=== PATIENT | male | born 1950 | race Caucasian/White ===

== ENCOUNTER 2023-09-11 12:01 | Inpatient (IN) ==
--- NOTE | 2023-09-11 12:29 | Emergency Department Note ---
Impression & Plan Recurrent falls, Closed supracondylar fracture of right elbow, History of hemorrhagic cerebrovascular accident (CVA) with residual deficit, Type 2 diabetes mellitus ED Provider Note NAME: BABAK LOVELACE Jr AGE: 73 SEX: M ARRIVES VIA: Walk-In INFORMANT: Patient ED PROVIDER(S): Shaggy Johnston MD CHIEF COMPLAINT: Fall PLAN: Disposition: Admit MEDICAL DECISION MAKING: The patient is a pleasant 73-year-old gentleman with a past medical history of hypertension, hyperlipidemia, history of hemorrhagic stroke remotely with residual right upper and right lower extremity weakness and associated ambulatory dysfunction who presents to emergency department via walk-in accompanied by his son for evaluation of repeat falls that occurred today initially this morning and then again prior to arrival both occurring when he was on the commode and lost his balance falling forward and hitting his head and onto his right side. Following his first fall he was able to ambulate at his baseline but following his second fall complained more of pain in his right upper extremity and right lower extremity. The patient also has a chronic brace for foot drop in the right lower extremity and family felt it was difficult to put on due to the orientation of the patient's leg. The patient denies loss of consciousness. The patient is not on anticoagulation. The patient recently relocated to this area to live near his children and they are in the process of finalizing arrangements at an assisted living facility but have yet to finalize placement of furniture so he can begin living there with additional assistance. At this time he has sparse assistance from an aide throughout the week and otherwise family has been helping him during the holidays. They suspect that the patient likely fell due to the recent relocation in an environment that has less of ADA assisting features as he had where he lived previously. On my evaluation the patient is uncomfortable but no distress, afebrile stable vital signs. He has deformity of the right shoulder with limited range of motion of the shoulder which his son feels is new but cannot definitively say if the deformity is also new. He does feel that he may have injured that shoulder in the past. The patient reports it is difficult for him to localize where he is having pain due to his limited sensation at baseline from his prior stroke. He merely indicates that his it is the entire region involving his shoulder and right arm. On initial evaluation the patient did not have significant swelling of the right elbow nor point tenderness. However upon reevaluation his right elbow had increased swelling and so was sent back for additional x-rays. EKG without overt acute ischemia. CXR negative for acute cardiopulmonary process per my personal preliminary review/interpretation. WBC 3.7K, nonspecific. H/H and platelets within normal limits. Chemistry without metabolic acidosis. BUNs/creatinine is 30, consistent with patient's clinically dry appearance with glucose initially 370s however improving to the 200s following IV fluid hydration. CPK within normal limits. TSH within normal limits. CT of the head and C-spine were negative for acute abnormalities. Plain films of the right shoulder, chest, pelvis and right hip in addition to right femur and bilateral tib-fib-fib and feet were performed. Findings include suspected chronic right clavicular injury and old humeral shaft fracture. Additional note is made of question of possible fracture at the base of the right fifth metatarsal however clinical correlation is difficult given the patient's poor sensation at baseline as there is no point tenderness. Thus, this was also further evaluated with oblique view for further characterization. Of note, patient and his son at bedside admit that it is possible that he has fallen in the past and may have suffered injuries for which she did not follow- up for given he has poor sensation in his right side. Foot XR subsequently negative for fracture. X-ray of right elbow demonstrates mildly displaced intercondylar/supracondylar fracture of the distal humerus. There is associated elbow joint effusion and overlying soft tissue edema. Case was discussed with Dr. Yu, orthopedic surgery on-call. Appreciate consultation recommendations. Agrees with treatment with splinting at this time and posterior long-arm. Likely will manage conservatively but recommends CT imaging to further characterize fracture which appears to be along fracture line of prior old fracture. Ultimately, the patient did require admission due to decreased ambulatory ability in setting of baseline amatory dysfunction now at further risk for falls with his right elbow fracture. Thus, patient and the son at bedside agree with plan for admission. [facility]. Triage Nursing notes reviewed and agree them. Prior/external medical records reviewed Vital Signs: reviewed Differential diagnosis: Fracture, dislocation, contusion, intra-abdominal, pneumothorax, intrathoracic, intracranial, neurologic, compartment syndrome, rhabdomyolysis, as well as other pathologies. ER treatment provided: See below. Diagnostics interpreted by me: ECG: Normal sinus rhythm, 83 bpm, no ectopy, no overt ST elevation or depression, QTc 427, QRS 94 Cardiac Monitoring: An order for continuous cardiac monitoring was placed and demonstrated Normal sinus rhythm, 83 bpm, no ectopy. Laboratory studies: See below Imaging studies: See below Consultation(s): Dr. Yu, orthopedic surgery on-call Dr. Glez, [facility] hospitalist. HPI: The patient is a pleasant 73-year-old gentleman with a past medical history of hypertension, hyperlipidemia, history of hemorrhagic stroke remotely with residual right upper and right lower extremity weakness and associated ambulatory dysfunction who presents to emergency department via walk-in accompanied by his son for evaluation of repeat falls that occurred today initially this morning and then again prior to arrival both occurring when he was on the commode and lost his balance falling forward and hitting his head and onto his right side. Following his first fall he was able to ambulate at his baseline but following his second fall complained more of pain in his right upper extremity and right lower extremity. The patient also has a chronic brace for foot drop in the right lower extremity and family felt it was difficult to put on due to the orientation of the patient's leg. The patient denies loss of consciousness. The patient is not on anticoagulation. The patient recently relocated to this area to live near his children and they are in the process of finalizing arrangements at an assisted living facility but have yet to finalize placement of furniture so he can begin living there with additional assistance. At this time he has sparse assistance from an aide throughout the week and otherwise family has been helping him during the holidays. They suspect that the patient likely fell due to the recent relocation in an environment that has less of ADA assisting features as he had where he lived previously. ROS: See above HPI for pertinent positives & negatives. A total of 10 systems reviewed and were otherwise negative. VITALS:See Below PHYSICAL EXAMINATION: GENERAL: Awake, alert, uncomfortable-appearing, in no distress HENT: Normocephalic, atraumatic. Oropharynx with dry mucous membranes and otherwise unremarkable. EYES: Normal conjunctiva. Sclera non-icteric. NECK: Supple. No nuchal rigidity. FROM. No JVD. RESPIRATORY: Clear to auscultation. CARDIAC: Regular rate, normal rhythm. Extremities warm and well perfused. Pulses equal. ABDOMEN: Soft, non-distended. No tenderness to palpation. No rebound or guarding. No masses. RECTAL: Deferred. MUSCULOSKELETAL: Chest examination reveals no tenderness. The back is symmetrical on inspection without obvious abnormality. deformity of the right shoulder with limited range of motion of the shoulder which his son feels is new but cannot definitively say if the deformity is also new. He does feel that he may have injured that shoulder in the past. The patient reports it is difficult for him to localize where he is having pain due to his limited sensation at baseline from his prior stroke. He merely indicates that his it is the entire region involving his shoulder and right arm. On initial evaluation the patient did not have significant swelling of the right elbow nor point tenderness. However upon reevaluation his right elbow had increased swelling and so was sent back for additional x-rays. LOWER EXTREMITIES: Calves are equal size bilaterally and non-tender. No edema. No discoloration. NEURO: Normal sensorium. No sensory or motor deficits noted. SKIN: No rash or jaundice noted. ED COURSE: Procedures: Splint Care: After the ortho glass splint was placed by the car supplier, I examined the splint and confirmed proper application/placement/position. Neurovascular status was intact both proximal and distal to the splinted area. Shaggy Johnston MD Past Med/Surg History Medical History Hyperlipidemia Hypertension History of stroke with residual deficit Hemorrhagic cerebrovascular accident (CVA) Social History Smoking Status: Former smoker marital status: / Feels Safe at Home: Yes Allergies Allergies Allergy/AdvReac Type Severity Reaction Status Date / Time terbinafine [From Lamisil] Allergy Intermediate Rash Unverified 09/11/23 17:29 Home Meds Home Medications Medication Instructions Recorded Confirmed amitriptyline 50 mg tablet 50 mg PO DAILY 09/11/23 09/11/23 atenolol 25 mg tablet 25 mg PO DAILY 09/11/23 09/11/23 atorvastatin 40 mg tablet 40 mg PO DAILY 09/11/23 09/11/23 benazepril 10 mg tablet 10 mg PO DAILY 09/11/23 09/11/23 diltiazem HCl 120 mg 120 mg PO DAILY 09/11/23 09/11/23 capsule,extended release 24 hr docusate sodium 100 mg tablet 100 mg PO BID 09/11/23 09/11/23 gabapentin 800 mg tablet 800 mg PO TID 09/11/23 09/11/23 insulin glargine 100 unit/mL (3 21 unit subcut HS 09/11/23 09/11/23 mL) subcutaneous pen (Lantus Solostar U-100 Insulin) insulin lispro 100 unit/mL 0 sliding scale dose subcut TID 09/11/23 09/11/23 subcutaneous pen (Humalog KwikPen (U-100) Insulin) mirabegron 50 mg tablet,extended 50 mg PO DAILY 09/11/23 09/11/23 release 24 hr (Myrbetriq) oxycodone 5 mg tablet 5 mg PO QAM PRN Pain 09/11/23 09/11/23 polyethylene glycol 3350 17 gram 17 g PO DAILY 09/11/23 09/11/23 oral powder packet (Miralax) Results & Data (ED) Vital Signs Vital Signs - 24 hr 09/11/23 12:11 09/11/23 13:00 09/11/23 13:01 Temperature 36.8 C Temperature Source Temporal Artery Scan Pulse Rate 84 Pulse Rate [Apical] 82 Respiratory Rate 20 16 Respiratory Effort / Characteristics Non-Labored Spontaneous Respiratory Depth Normal Respiratory Pattern Regular Blood Pressure 135/76 Blood Pressure [Left Arm] 144/75 H Blood Pressure Mean 95 Blood Pressure Mean [Left Arm] 98 Pulse Oximetry 97 92 94 Oxygen Delivery Method Room Air Sepsis Recent Fever Within 48 Hours No Sepsis New/Unexplained Change in Mental Status No Sepsis Action Taken by Nursing No Action Required 09/11/23 15:00 09/11/23 18:06 09/11/23 19:25 Temperature Temperature Source Pulse Rate Pulse Rate [Apical] 76 78 83 Respiratory Rate 19 19 Respiratory Effort / Characteristics Non-Labored Spontaneous Non-Labored Spontaneous Respiratory Depth Normal Normal Respiratory Pattern Regular Blood Pressure Blood Pressure [Left Arm] 153/85 H 156/79 H 165/86 H Blood Pressure Mean Blood Pressure Mean [Left Arm] 107 104 112 Pulse Oximetry 93 96 96 Oxygen Delivery Method Room Air Room Air Room Air Sepsis Recent Fever Within 48 Hours Sepsis New/Unexplained Change in Mental Status Sepsis Action Taken by Nursing 09/11/23 19:28 09/11/23 19:28 09/11/23 19:30 Temperature Temperature Source Pulse Rate 81 81 80 Pulse Rate [Apical] Respiratory Rate 12 12 Respiratory Effort / Characteristics Respiratory Depth Respiratory Pattern Blood Pressure 169/84 H Blood Pressure [Left Arm] Blood Pressure Mean 112 Blood Pressure Mean [Left Arm] Pulse Oximetry 95 95 Oxygen Delivery Method Room Air Room Air Sepsis Recent Fever Within 48 Hours Sepsis New/Unexplained Change in Mental Status Sepsis Action Taken by Nursing 09/11/23 20:00 09/11/23 20:30 09/11/23 21:00 Temperature Temperature Source Pulse Rate 79 85 90 Pulse Rate [Apical] Respiratory Rate 16 14 18 Respiratory Effort / Characteristics Respiratory Depth Respiratory Pattern Blood Pressure 160/85 H 156/91 H 171/92 H Blood Pressure [Left Arm] Blood Pressure Mean 110 112 118 Blood Pressure Mean [Left Arm] Pulse Oximetry Oxygen Delivery Method Sepsis Recent Fever Within 48 Hours Sepsis New/Unexplained Change in Mental Status Sepsis Action Taken by Nursing 09/11/23 22:21 09/11/23 22:30 Temperature Temperature Source Pulse Rate 94 H 92 H Pulse Rate [Apical] Respiratory Rate 16 Respiratory Effort / Characteristics Respiratory Depth Respiratory Pattern Blood Pressure 167/82 H Blood Pressure [Left Arm] Blood Pressure Mean 110 Blood Pressure Mean [Left Arm] Pulse Oximetry Oxygen Delivery Method Sepsis Recent Fever Within 48 Hours Sepsis New/Unexplained Change in Mental Status Sepsis Action Taken by Nursing Laboratory Data Attestation: I reviewed the patient's lab results. 09/11/23 12:42 09/11/23 12:42 Lab Results 09/11/23 Range/Units 12:42 WBC 13.75 H (4.8-10.8) K/ul RBC 4.52 L (4.70-6.10) M/uL Hgb 14.5 (14.0-18.0) g/dl Hct 43.1 (42.0-52.0) % MCV 95.4 (80.0-100.0) fL MCH 32.1 (25.0-34.0) pg MCHC 33.6 (32.0-36.0) g/dL RDW Std Deviation 43.5 (36.4-46.3) fL RDW Coeff of Nazia 12.4 (11.5-14.5) % Plt Count 306 (130-400) K/uL MPV 8.7 L (9.4-12.4) fL Immature Gran % (Auto) 0.7 % Neut % (Auto) 79.4 % Lymph % (Auto) 7.9 % [place] % (Auto) 11.1 % Eos % (Auto) 0.7 % Baso % (Auto) 0.2 % Neut # (Auto) 10.92 H (1.40-6.50) K/uL Lymph # (Auto) 1.09 L (1.20-3.40) K/uL [place] # (Auto) 1.52 H (0.11-0.59) K/uL Eos # (Auto) 0.09 (0.00-0.50) K/uL Baso # (Auto) 0.03 (0.00-0.20) K/uL Immature Gran # (Auto) 0.10 (0.01-0.20) K/uL PT 11.1 (9.0-12.0) Seconds INR 1.0 (0.9-1.1) Sodium 130 L (136-145) mmol/L Potassium 4.4 (3.5-5.1) mmol/L Chloride 93 L (98-107) mmol/L Carbon Dioxide 29 (21-32) mmol/L Anion Gap 8 (3-11) BUN 26 H (6-23) mg/dl Creatinine 0.85 (0.6-1.4) mg/dl Est Cr Clr Drug Dosing 78.7 ml/min Est GFR ( Amer) 99.5 ml/min Est GFR (Non-Af Amer) 85.8 ml/min BUN/Creatinine Ratio 30.6 H (10-20) Glucose 379 H* (70-99(Fasting)) mg/dl Calcium 9.0 (8.6-10.3) mg/dl Phosphorus 3.2 (2.5-4.9) mg/dl Magnesium 2.1 (1.7-2.4) mg/dl Total Bilirubin 1.1 H (0.2-1.0) mg/dl AST 19 (13-39) U/L ALT 22 (7-52) U/L Alkaline Phosphatase 75 (34-104) U/L Total Creatine Kinase 206 (30-223) U/L Total Protein 7.0 (6.0-8.3) gm/dl Albumin 4.1 (3.4-5.0) gm/dl Globulin 2.9 (2.5-4.0) gm/dl Albumin/Globulin Ratio 1.4 (0.9-2) TSH 2.945 (0.300-4.500) uIu/ml Administered Medications Discontinued Medications Sodium Chloride (Nss) 500 mls @ 999 mls/hr IV .Q31M ISABEL Stop: 09/11/23 13:15 Last Infusion: 09/11/23 13:32 Dose: Infused Documented By: Admin: 09/11/23 12:57 Dose: 999 mls/hr Documented By: HERMANN Acetaminophen (Ofirmev) 1,000 mg in 100 mls @ 400 mls/hr IV NOW STA Stop: 09/11/23 12:57 Last Infusion: 09/11/23 13:11 Dose: Infused Documented By: Admin: 09/11/23 12:56 Dose: 400 mls/hr Documented By: HERMANN Imaging Data Radiologist's Impression: Cervical Spine CT 09/11/23 12:43 CT SCAN OF THE CERVICAL SPINE CLINICAL HISTORY: Trauma. Fall. COMPARISON STUDY: No priors. TECHNIQUE: CT scan of the cervical spine is performed from the skull base to the upper thoracic spine. Images are reviewed in the axial, sagittal, and coronal planes. IV contrast was not administered for this examination. A dose lowering technique was utilized adhering to the principles of ALARA. CT DOSE: 1184.2 mGy.cm FINDINGS: Skeletal structures: The skeletal structures are osteopenic. There is no evidence of fracture or subluxation involving the cervical spine. Vertebral body height and alignment are maintained. Small anterior osteophytes are seen throughout. The odontoid process and lateral masses are intact. The atlantoaxial articulation is preserved noting productive degenerative change. The spinous processes appear intact. There is mild multilevel facet arthropathy. Intervertebral discs: There is severe disc space narrowing at C7-T1. Mild narrowing is seen at the remaining cervical levels. Central canal: Grossly patent. Soft tissues: The prevertebral and paraspinous soft tissues are within normal limits. There is atherosclerotic calcification of the carotid bulbs. Calvarium: The visualized calvarium at the skull base appears intact. Brain parenchyma: A 1.9 cm calcified extra-axial nodule in the posterior fossa is typical for a meningioma. Partially visualized brain parenchyma at the skull base is otherwise grossly unremarkable. Sinuses and mastoids: The visualized paranasal sinuses are clear. There is trace right mastoid effusion. The left mastoid air cells are well pneumatized. Lung apices: Emphysematous change is seen at the apices. Apical lung parenchyma is otherwise clear as visualized. IMPRESSION: 1. There is no evidence of cervical spine fracture or subluxation. 2. Osteopenia and spondylotic change as above. ACT 112: Negative or not required by law. Electronically signed by: Sina Kemp M.D. 09/11/2023 2:43 PM Chest X-Ray 09/11/23 12:43 SINGLE VIEW CHEST CLINICAL HISTORY: Fall. FINDINGS: 2 AP, portable, upright chest radiographs are obtained. No prior studies are available for comparison at the time of dictation. The examination is degraded by portable technique, apical lordotic positioning, and patient rotation. The heart is mildly enlarged noting atherosclerotic calcification of the thoracic aorta. The pulmonary vasculature is noncongested. Nonspecific interstitial thickening is likely chronic. There is bibasilar scarring/atelectasis. No airspace consolidation or large pleural effusion is identified. No pneumothorax is seen. The skeletal structures are osteopenic. There is chronic appearing posttraumatic deformity of the distal right clavicle. IMPRESSION: Cardiomegaly with no acute cardiopulmonary abnormality identified. ACT 112: Negative or not required by law. Electronically signed by: Sina Kemp M.D. 09/11/2023 3:13 PM Femur X-Ray 09/11/23 12:43 SINGLE VIEW PELVIS; 2 VIEWS RIGHT HIP STUDY: 2 VIEWS RIGHT FEMUR CLINICAL HISTORY: Fall. FINDINGS: An AP view of the pelvis, AP and crosstable lateral views of the right hip, with AP and crosstable lateral views of the right femur are obtained. No prior studies are available for comparison at the time of dictation. The skeletal structures are osteopenic. There is no radiographic evidence of acute fracture involving the hips or bony pelvis. There is no radiographic evidence of right femoral fracture. Moderate osteoarthritic change is noted in both hips. There is degenerative sclerosis of the sacroiliac joints. Lumbosacral spondylosis is partially visualized. The right knee joint is grossly maintained. An electronic device projects over the left lower quadrant of the abdomen. There is atherosclerotic calcification of the right femoral artery. IMPRESSION: 1. No acute bony abnormality is seen involving the hips or pelvis. 2. There is no radiographic evidence of right femoral fracture. Electronically signed by: Sina Kemp M.D. 09/11/2023 3:19 PM Foot X-Ray 09/11/23 12:43 LEFT FOOT 2 VIEWS CLINICAL HISTORY: Fall. Left foot injury. FINDINGS: AP and lateral views of the left foot are obtained. No prior studies are available for comparison at the time of dictation. The skeletal structures are heterogeneously osteopenic. There is no radiographic evidence of acute fracture on this 2 view examination. Osteoarthritic change is seen throughout the foot, greatest at the first metatarsophalangeal joint and at the tarsometatarsal articulations. There is a large plantar heel spur. Degenerative spurring is seen along the dorsal aspect of the tarsal bones. An os navicularis is incidentally noted. The overlying soft tissues are normal as imaged. There is advanced atherosclerotic calcification of the regional arteries. IMPRESSION: 1. No acute bony abnormality is identified. 2. Osteopenia, degenerative change, and large plantar heel spur as above. Electronically signed by: Sina Kemp M.D. 09/11/2023 3:35 PM Foot X-Ray 09/11/23 12:43 RIGHT FOOT 2 VIEWS CLINICAL HISTORY: Fall. Right foot injury. FINDINGS: AP and lateral views of the right foot are obtained. No prior studies are available for comparison at the time of dictation. The skeletal structures are heterogeneously osteopenic. Question cortical irregularity at the base of the fifth metatarsal on the lateral projection. No additional findings are suspicious for acute fracture. There is chronic posttraumatic deformity of the fourth and fifth metatarsal shafts. Osteoarthritic change is seen throughout the foot, greatest at the first metatarsophalangeal joint and at the tarsometatarsal articulations. There is a large plantar heel spur. The overlying soft tissues are normal as imaged. There is advanced atherosclerotic calcification of the regional arteries. IMPRESSION: 1. Question cortical irregularity at the base of the fifth metatarsal seen on the lateral projection only. This is indeterminant and may be artifactual. Correlate for point tenderness. If there is clinical concern for fracture at this site then a repeat examination with oblique views should be obtained. 2. Additional findings are suspicious for acute fracture. 3. Osteopenia with degenerative change, chronic posttraumatic change, and a large plantar heel spur as above. Electronically signed by: Sina Kemp M.D. 09/11/2023 3:[address] 09/11/23 12:43 CT SCAN OF THE BRAIN WITHOUT IV CONTRAST CLINICAL HISTORY: Fall. COMPARISON STUDY: No priors. TECHNIQUE: Unenhanced axial CT scan of the brain is performed from the vertex to the skull base. A dose lowering technique was utilized adhering to the principles of ALARA. FINDINGS: Brain parenchyma: There is age-related involutional change noting moderate subcortical and periventricular microangiopathic disease. There is no hemorrhage, mass effect, or evidence of acute territorial ischemia by CT criteria. A 1.9 cm calcified extra-axial lesion in the right posterior fossa is typical for a meningioma. There is no associated mass effect. Deleon-white matter differentiation is preserved. No extra-axial fluid collection is seen. Ventricles, sulci, cisterns: Prominent secondary to involutional change. Intracranial vasculature: There is atherosclerotic calcification of the cavernous carotid and vertebral arteries. Calvarium: The skeletal structures are osteopenic. No depressed calvarial fracture is identified. Sinuses and mastoids: The paranasal sinuses are clear. The mastoid air cells are well pneumatized. Orbits: The bony orbits are grossly intact. There are bilateral ocular lens implants. IMPRESSION: 1. There is no hemorrhage, mass effect, or evidence of acute territorial ischemia by CT criteria. 2. A 1.9 cm calcified extra-axial nodule in the right posterior fossa is typical for a meningioma. There is no associated mass effect. ACT 112: Negative or not required by law. Electronically signed by: Sina Kemp M.D. 09/11/2023 2:31 PM Shoulder X-Ray 09/11/23 12:43 RIGHT SHOULDER 2 VIEWS CLINICAL HISTORY: Fall. Right shoulder pain. FINDINGS: 2 views of the right shoulder are obtained. No prior studies are available for comparison at the time of dictation. The skeletal structures are heterogeneously osteopenic. No acute fracture is clearly identified and there is no dislocation. There is chronic appearing posttraumatic deformity of the distal right clavicle. There is also chronic appearing posttraumatic change involving the right humeral shaft. Soft tissue edema overlies the right shoulder and clavicle. There are likely chronic/healed right-sided rib fractures. Degenerative change is noted at the glenohumeral and acromioclavicular joints. The visualized right lung parenchyma appears clear. IMPRESSION: 1. Soft tissue swelling overlying the right shoulder and clavicle with no clear radiographic evidence of acute fracture. 2. No dislocation is seen. 3. Deformity of the distal right clavicle and the right humeral shaft appears chronic. Correlate clinically. Electronically signed by: Sina Kemp M.D. 09/11/2023 3:25 PM Tibia/Fibula X-Ray 09/11/23 12:43 LEFT TIBIA AND FIBULA 2 VIEWS CLINICAL HISTORY: Fall. Left leg pain. FINDINGS: AP and lateral views of the left tibia and fibula are obtained. No prior studies are available for comparison at the time of dictation. The skeletal structures are osteopenic. There is no radiographic evidence of left tibial or fibular fracture. The knee and ankle joints appear maintained. The overlying soft tissues are within normal limits. There is atherosclerotic calcification of the regional arteries. IMPRESSION: No acute bony abnormality is identified. Electronically signed by: Sina Kemp M.D. 09/11/2023 3:26 PM Tibia/Fibula X-Ray 09/11/23 12:43 RIGHT TIBIA AND FIBULA 2 VIEWS CLINICAL HISTORY: Fall. Right leg pain. FINDINGS: AP and lateral views of the right tibia and fibula are obtained. No prior studies are available for comparison at the time of dictation. The skeletal structures are osteopenic. There is no radiographic evidence of right tibial or fibular fracture. The knee and ankle joints appear maintained. The overlying soft tissues are within normal limits. There is atherosclerotic calcification of the regional arteries. IMPRESSION: No acute bony abnormality is identified. Electronically signed by: Sina Kemp M.D. 09/11/2023 3:27 PM Hip/Pelvis X-Ray 09/11/23 12:47 SINGLE VIEW PELVIS; 2 VIEWS RIGHT HIP STUDY: 2 VIEWS RIGHT FEMUR CLINICAL HISTORY: Fall. FINDINGS: An AP view of the pelvis, AP and crosstable lateral views of the right hip, with AP and crosstable lateral views of the right femur are obtained. No prior studies are available for comparison at the time of dictation. The skeletal structures are osteopenic. There is no radiographic evidence of acute fracture involving the hips or bony pelvis. There is no radiographic evidence of right femoral fracture. Moderate osteoarthritic change is noted in both hips. There is degenerative sclerosis of the sacroiliac joints. Lumbosacral spondylosis is partially visualized. The right knee joint is grossly maintained. An electronic device projects over the left lower quadrant of the abdomen. There is atherosclerotic calcification of the right femoral artery. IMPRESSION: 1. No acute bony abnormality is seen involving the hips or pelvis. 2. There is no radiographic evidence of right femoral fracture. Electronically signed by: Sina Kemp M.D. 09/11/2023 3:19 PM Elbow X-Ray 09/11/23 18:21 RIGHT ELBOW 2 VIEWS; RIGHT FOREARM 2 VIEWS CLINICAL HISTORY: Fall. Right arm injury. FINDINGS: Crosstable AP and lateral views of the right elbow with PA and crosstable lateral views of the right forearm are obtained. No prior studies are available for comparison at the time of dictation. The skeletal structures are osteopenic. There is a mildly displaced intracondylar/supracondylar fracture of the distal humerus with associated elbow joint effusion and significant overlying soft tissue edema. No acute fracture is seen involving the radius or ulna. The elbow joint is grossly maintained. Arthritic change is noted in the wrist. IMPRESSION: 1. Mildly displaced intracondylar/supracondylar fracture of the distal humerus. 2. There is associated elbow joint effusion and significant overlying soft tissue edema. 3. No radial or ulnar fracture is clearly seen. Electronically signed by: Sina Kemp M.D. 09/11/2023 7:39 PM Foot X-Ray 09/11/23 18:21 SINGLE VIEW RIGHT FOOT CLINICAL HISTORY: Fall. Follow up abnormal radiographs. FINDINGS: Oblique views of the right foot are correlated with AP and lateral views of the right foot performed earlier the same day 09/11/2023. The skeletal structures are heterogeneously osteopenic. No fracture is identified. Specifically, there is no evidence of fracture through base of fifth metatarsal is questioned on the earlier examination. There is chronic posttraumatic deformity of the fourth and fifth metatarsal shafts. Osteoarthritic change is seen throughout the foot, greatest at the first metatarsophalangeal joint and at the tarsometatarsal articulations. The overlying soft tissues are normal as imaged. There is advanced atherosclerotic calcification of the regional arteries. IMPRESSION: 1. No acute fracture is identified. Specifically, there is no fracture seen at the base of the fifth metatarsal is questioned on today's earlier examination. 2. Osteopenia with chronic and degenerative change as above. Electronically signed by: Sina Kemp M.D. 09/11/2023 8:08 PM Forearm X-Ray 09/11/23 18:25 RIGHT ELBOW 2 VIEWS; RIGHT FOREARM 2 VIEWS CLINICAL HISTORY: Fall. Right arm injury. FINDINGS: Crosstable AP and lateral views of the right elbow with PA and crosstable lateral views of the right forearm are obtained. No prior studies are available for comparison at the time of dictation. The skeletal structures are osteopenic. There is a mildly displaced intracondylar/supracondylar fracture of the distal humerus with associated elbow joint effusion and significant overlying soft tissue edema. No acute fracture is seen involving the radius or ulna. The elbow joint is grossly maintained. Arthritic change is noted in the wrist. IMPRESSION: 1. Mildly displaced intracondylar/supracondylar fracture of the distal humerus. 2. There is associated elbow joint effusion and significant overlying soft tissue edema. 3. No radial or ulnar fracture is clearly seen. Electronically signed by: Sina Kemp M.D. 09/11/2023 7:39 PM Discharge Plan Visit Data Chief Complaint: Fall Stated Complaint: FALL, HEAD INJURY ED Provider: Shaggy Johnston Discharge Problem: Recurrent falls, Closed supracondylar fracture of right elbow, History of hemorrhagic cerebrovascular accident (CVA) with residual deficit, Type 2 diabetes mellitus Discharge Instructions Interventions: ED Discharge Assessment Last Done: 09/11/23 23:14 Forms Stand Alone Forms: My [facility] Prescriptions Prescriptions: No Action atorvastatin 40 mg tablet 40 mg PO DAILY atenolol 25 mg tablet 25 mg PO DAILY amitriptyline 50 mg tablet 50 mg PO DAILY gabapentin 800 mg tablet 800 mg PO TID diltiazem HCl 120 mg capsule,extended release 24hr 120 mg PO DAILY benazepril 10 mg tablet 10 mg PO DAILY oxycodone 5 mg tablet 5 mg PO QAM PRN (Reason: Pain) insulin lispro [Humalog KwikPen Insulin] 100 unit/mL insulin pen 0 sliding scale dose SUBCUT TID Rx Instructions: Patient does this per sliding scale but is here out of town and doesn't have the scale sheet with him insulin glargine [Lantus Solostar U-100 Insulin] 100 unit/mL (3 mL) insulin pen 21 unit SUBCUT HS Myrbetriq 50 mg tablet extended release 24 hr 50 mg PO DAILY polyethylene glycol 3350 [Miralax] 17 gram Powder In Packet 17 g PO DAILY docusate sodium 100 mg Tablet 100 mg PO BID Referrals Referrals: PCP,NO [Physician] - Discharge Problem: Closed supracondylar fracture of right elbow Qualifiers: Encounter type: initial encounter Qualified Code(s): S42.411A - Displaced simple supracondylar fracture without intercondylar fracture of right humerus, initial encounter for closed fracture Type 2 diabetes mellitus 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
[2023-09-11] MEDS ORDERED: ACETAMINOPHEN 1,000 MG/100 ML VIAL IV STA (12:43)
[2023-09-11] MEDS ORDERED: SODIUM CHLORIDE 0.9% 500 ML IV SCH (12:45)
[2023-09-11 13:20] LABS: Basophils # (auto) 0.03 K/uL (0.00-0.20); Basophils % (auto) 0.2 %; Eosinophils # (auto) 0.09 K/uL (0.00-0.50); Eosinophils % (auto) 0.7 %; Hematocrit (blood only) 43.1 % (42.0-52.0); Hemoglobin 14.5 g/dl (14.0-18.0); Immature Granulocytes % (auto) 0.7 %; Lymphocytes # (auto) 1.09 K/uL (1.20-3.40); Lymphocytes % (auto) 7.9 %; Mean Corpuscular Hemoglobin 32.1 pg (25.0-34.0); Mean Corpuscular Hgb Conc 33.6 g/dL (32.0-36.0); Mean Corpuscular Volume 95.4 fL (80.0-100.0); Mean Platelet Volume 8.7 fL (9.4-12.4); Monocytes # (auto) 1.52 K/uL (0.11-0.59); Monocytes % (auto) 11.1 %; Neutrophils # (auto) 10.92 K/uL (1.40-6.50); Neutrophils % (auto) 79.4 %; Platelet Count 306 K/uL (130-400); RDW Coefficient of Variation 12.4 % (11.5-14.5); RDW Standard Deviation 43.5 fL (36.4-46.3); Red Blood Count 4.52 M/uL (4.70-6.10); White Blood Count 13.75 K/ul (4.8-10.8)
[2023-09-11 13:48] LABS: Prothrombin Time 11.1 Seconds (9.0-12.0)
[2023-09-11 14:16] LABS: Albumin Globulin Ratio 1.4 (0.9-2); Albumin Level 4.1 gm/dl (3.4-5.0); BUN Creatinine Ratio 30.6 (10-20); Bilirubin,Total 1.1 mg/dl (0.2-1.0); Creatinine Clr Calc Pharmacy 78.7 ml/min; Est GFR (African American) 99.5 ml/min; Est GFR (Non-African American) 85.8 ml/min; Globulin 2.9 gm/dl (2.5-4.0); Magnesium 2.1 mg/dl (1.7-2.4); Phosphorus 3.2 mg/dl (2.5-4.9); Potassium 4.4 mmol/L (3.5-5.1); Thyroid Stimulating Hormone 2.945 uIu/ml (0.300-4.500)
--- NOTE | 2023-09-11 14:33 | CT Scan Report ---
CT SCAN OF THE BRAIN WITHOUT IV CONTRAST CLINICAL HISTORY: Fall. COMPARISON STUDY: No priors. TECHNIQUE: Unenhanced axial CT scan of the brain is performed from the vertex to the skull base. A do se lowering technique was utilized adhering to the principles of ALARA. FINDINGS: Brain parenchyma: There is age-related involutional change noting moderate subcortical and periventri cular microangiopathic disease. There is no hemorrhage, mass effect, or evidence of acute territorial ischemia by CT criteria. A 1.9 cm calcified extra-axial lesion in the right posterior fossa is typic al for a meningioma. There is no associated mass effect. Deleon-white matter differentiation is preserv ed. No extra-axial fluid collection is seen. Ventricles, sulci, cisterns: Prominent secondary to involutional change. Intracranial vasculature: There is atherosclerotic calcification of the cavernous carotid and vertebr al arteries. Calvarium: The skeletal structures are osteopenic. No depressed calvarial fracture is identified. Sinuses and mastoids: The paranasal sinuses are clear. The mastoid air cells are well pneumatized. Orbits: The bony orbits are grossly intact. There are bilateral ocular lens implants. IMPRESSION: 1. There is no hemorrhage, mass effect, or evidence of acute territorial ischemia by CT criteria. 2. A 1.9 cm calcified extra-axial nodule in the right posterior fossa is typical for a meningioma. Th ere is no associated mass effect. ACT 112: Negative or not required by law. Electronically signed by: Sina Kemp M.D. 09/11/2023 2:31 PM
--- NOTE | 2023-09-11 14:46 | CT Scan Report ---
CT SCAN OF THE CERVICAL SPINE CLINICAL HISTORY: Trauma. Fall. COMPARISON STUDY: No priors. TECHNIQUE: CT scan of the cervical spine is performed from the skull base to the upper thoracic spine . Images are reviewed in the axial, sagittal, and coronal planes. IV contrast was not administered fo r this examination. A dose lowering technique was utilized adhering to the principles of ALARA. CT DOSE: 1184.2 mGy.cm FINDINGS: Skeletal structures: The skeletal structures are osteopenic. There is no evidence of fracture or subl uxation involving the cervical spine. Vertebral body height and alignment are maintained. Small anter ior osteophytes are seen throughout. The odontoid process and lateral masses are intact. The atlantoa xial articulation is preserved noting productive degenerative change. The spinous processes appear in tact. There is mild multilevel facet arthropathy. Intervertebral discs: There is severe disc space narrowing at C7-T1. Mild narrowing is seen at the re maining cervical levels. Central canal: Grossly patent. Soft tissues: The prevertebral and paraspinous soft tissues are within normal limits. There is athero sclerotic calcification of the carotid bulbs. Calvarium: The visualized calvarium at the skull base appears intact. Brain parenchyma: A 1.9 cm calcified extra-axial nodule in the posterior fossa is typical for a menin gioma. Partially visualized brain parenchyma at the skull base is otherwise grossly unremarkable. Sinuses and mastoids: The visualized paranasal sinuses are clear. There is trace right mastoid effusi on. The left mastoid air cells are well pneumatized. Lung apices: Emphysematous change is seen at the apices. Apical lung parenchyma is otherwise clear as visualized. IMPRESSION: 1. There is no evidence of cervical spine fracture or subluxation. 2. Osteopenia and spondylotic change as above. ACT 112: Negative or not required by law. Electronically signed by: Sina Kemp M.D. 09/11/2023 2:43 PM
--- NOTE | 2023-09-11 15:14 | XRay Report ---
SINGLE VIEW CHEST CLINICAL HISTORY: Fall. FINDINGS: 2 AP, portable, upright chest radiographs are obtained. No prior studies are available for comparison at the time of dictation. The examination is degraded by portable technique, apical lordot ic positioning, and patient rotation. The heart is mildly enlarged noting atherosclerotic calcificat ion of the thoracic aorta. The pulmonary vasculature is noncongested. Nonspecific interstitial thicke blaine is likely chronic. There is bibasilar scarring/atelectasis. No airspace consolidation or large p leural effusion is identified. No pneumothorax is seen. The skeletal structures are osteopenic. There is chronic appearing posttraumatic deformity of the distal right clavicle. IMPRESSION: Cardiomegaly with no acute cardiopulmonary abnormality identified. ACT 112: Negative or not required by law. Electronically signed by: Sina Kemp M.D. 09/11/2023 3:13 PM
--- NOTE | 2023-09-11 15:21 | XRay Report ---
SINGLE VIEW PELVIS; 2 VIEWS RIGHT HIP STUDY: 2 VIEWS RIGHT FEMUR CLINICAL HISTORY: Fall. FINDINGS: An AP view of the pelvis, AP and crosstable lateral views of the right hip, with AP and escrow agent sstable lateral views of the right femur are obtained. No prior studies are available for comparison at the time of dictation. The skeletal structures are osteopenic. There is no radiographic evidence o f acute fracture involving the hips or bony pelvis. There is no radiographic evidence of right femora l fracture. Moderate osteoarthritic change is noted in both hips. There is degenerative sclerosis of the sacroiliac joints. Lumbosacral spondylosis is partially visualized. The right knee joint is gross ly maintained. An electronic device projects over the left lower quadrant of the abdomen. There is at herosclerotic calcification of the right femoral artery. IMPRESSION: 1. No acute bony abnormality is seen involving the hips or pelvis. 2. There is no radiographic evidence of right femoral fracture. Electronically signed by: Sina Kemp M.D. 09/11/2023 3:19 PM
--- NOTE | 2023-09-11 15:21 | XRay Report ---
SINGLE VIEW PELVIS; 2 VIEWS RIGHT HIP STUDY: 2 VIEWS RIGHT FEMUR CLINICAL HISTORY: Fall. FINDINGS: An AP view of the pelvis, AP and crosstable lateral views of the right hip, with AP and microphone operator sstable lateral views of the right femur are obtained. No prior studies are available for comparison at the time of dictation. The skeletal structures are osteopenic. There is no radiographic evidence o f acute fracture involving the hips or bony pelvis. There is no radiographic evidence of right femora l fracture. Moderate osteoarthritic change is noted in both hips. There is degenerative sclerosis of the sacroiliac joints. Lumbosacral spondylosis is partially visualized. The right knee joint is gross ly maintained. An electronic device projects over the left lower quadrant of the abdomen. There is at herosclerotic calcification of the right femoral artery. IMPRESSION: 1. No acute bony abnormality is seen involving the hips or pelvis. 2. There is no radiographic evidence of right femoral fracture. Electronically signed by: Sina Kemp M.D. 09/11/2023 3:19 PM
--- NOTE | 2023-09-11 15:28 | XRay Report ---
LEFT TIBIA AND FIBULA 2 VIEWS CLINICAL HISTORY: Fall. Left leg pain. FINDINGS: AP and lateral views of the left tibia and fibula are obtained. No prior studies are availa ble for comparison at the time of dictation. The skeletal structures are osteopenic. There is no radi ographic evidence of left tibial or fibular fracture. The knee and ankle joints appear maintained. Th e overlying soft tissues are within normal limits. There is atherosclerotic calcification of the oracio onal arteries. IMPRESSION: No acute bony abnormality is identified. Electronically signed by: Sina Kemp M.D. 09/11/2023 3:26 PM
--- NOTE | 2023-09-11 15:28 | XRay Report ---
RIGHT SHOULDER 2 VIEWS CLINICAL HISTORY: Fall. Right shoulder pain. FINDINGS: 2 views of the right shoulder are obtained. No prior studies are available for comparison a t the time of dictation. The skeletal structures are heterogeneously osteopenic. No acute fracture is clearly identified and there is no dislocation. There is chronic appearing posttraumatic deformity o f the distal right clavicle. There is also chronic appearing posttraumatic change involving the right humeral shaft. Soft tissue edema overlies the right shoulder and clavicle. There are likely chronic/ healed right-sided rib fractures. Degenerative change is noted at the glenohumeral and acromioclavicu lar joints. The visualized right lung parenchyma appears clear. IMPRESSION: 1. Soft tissue swelling overlying the right shoulder and clavicle with no clear radiographic evidence of acute fracture. 2. No dislocation is seen. 3. Deformity of the distal right clavicle and the right humeral shaft appears chronic. Correlate clin ically. Electronically signed by: Sina Kemp M.D. 09/11/2023 3:25 PM
--- NOTE | 2023-09-11 15:29 | XRay Report ---
RIGHT TIBIA AND FIBULA 2 VIEWS CLINICAL HISTORY: Fall. Right leg pain. FINDINGS: AP and lateral views of the right tibia and fibula are obtained. No prior studies are avail able for comparison at the time of dictation. The skeletal structures are osteopenic. There is no rad iographic evidence of right tibial or fibular fracture. The knee and ankle joints appear maintained. The overlying soft tissues are within normal limits. There is atherosclerotic calcification of the re gional arteries. IMPRESSION: No acute bony abnormality is identified. Electronically signed by: Sina Kemp M.D. 09/11/2023 3:27 PM
--- NOTE | 2023-09-11 15:35 | XRay Report ---
RIGHT FOOT 2 VIEWS CLINICAL HISTORY: Fall. Right foot injury. FINDINGS: AP and lateral views of the right foot are obtained. No prior studies are available for [facility] at the time of dictation. The skeletal structures are heterogeneously osteopenic. Question co rtical irregularity at the base of the fifth metatarsal on the lateral projection. No additional find ings are suspicious for acute fracture. There is chronic posttraumatic deformity of the fourth and fi fth metatarsal shafts. Osteoarthritic change is seen throughout the foot, greatest at the first metat arsophalangeal joint and at the tarsometatarsal articulations. There is a large plantar heel spur. Th e overlying soft tissues are normal as imaged. There is advanced atherosclerotic calcification of the regional arteries. IMPRESSION: 1. Question cortical irregularity at the base of the fifth metatarsal seen on the lateral projection only. This is indeterminant and may be artifactual. Correlate for point tenderness. If there is clini leonela concern for fracture at this site then a repeat examination with oblique views should be obtained . 2. Additional findings are suspicious for acute fracture. 3. Osteopenia with degenerative change, chronic posttraumatic change, and a large plantar heel spur a s above. Electronically signed by: Sina Kemp M.D. 09/11/2023 3:32 PM
--- NOTE | 2023-09-11 15:36 | XRay Report ---
LEFT FOOT 2 VIEWS CLINICAL HISTORY: Fall. Left foot injury. FINDINGS: AP and lateral views of the left foot are obtained. No prior studies are available for zayra rankin at the time of dictation. The skeletal structures are heterogeneously osteopenic. There is no radiographic evidence of acute fracture on this 2 view examination. Osteoarthritic change is seen thr oughout the foot, greatest at the first metatarsophalangeal joint and at the tarsometatarsal articula tions. There is a large plantar heel spur. Degenerative spurring is seen along the dorsal aspect of t he tarsal bones. An os navicularis is incidentally noted. The overlying soft tissues are normal as im aged. There is advanced atherosclerotic calcification of the regional arteries. IMPRESSION: 1. No acute bony abnormality is identified. 2. Osteopenia, degenerative change, and large plantar heel spur as above. Electronically signed by: Sina Kemp M.D. 09/11/2023 3:35 PM
--- NOTE | 2023-09-11 19:42 | XRay Report ---
RIGHT ELBOW 2 VIEWS; RIGHT FOREARM 2 VIEWS CLINICAL HISTORY: Fall. Right arm injury. FINDINGS: Crosstable AP and lateral views of the right elbow with PA and crosstable lateral views of the right forearm are obtained. No prior studies are available for comparison at the time of dictatio n. The skeletal structures are osteopenic. There is a mildly displaced intracondylar/supracondylar fr acture of the distal humerus with associated elbow joint effusion and significant overlying soft tiss ue edema. No acute fracture is seen involving the radius or ulna. The elbow joint is grossly maintai melody. Arthritic change is noted in the wrist. IMPRESSION: 1. Mildly displaced intracondylar/supracondylar fracture of the distal humerus. 2. There is associated elbow joint effusion and significant overlying soft tissue edema. 3. No radial or ulnar fracture is clearly seen. Electronically signed by: Sina Kemp M.D. 09/11/2023 7:39 PM
--- NOTE | 2023-09-11 20:10 | XRay Report ---
SINGLE VIEW RIGHT FOOT CLINICAL HISTORY: Fall. Follow up abnormal radiographs. FINDINGS: Oblique views of the right foot are correlated with AP and lateral views of the right foot performed earlier the same day 09/11/2023. The skeletal structures are heterogeneously osteopenic. No fracture is identified. Specifically, there is no evidence of fracture through base of fifth metatar jhoan is questioned on the earlier examination. There is chronic posttraumatic deformity of the fourth and fifth metatarsal shafts. Osteoarthritic change is seen throughout the foot, greatest at the first metatarsophalangeal joint and at the tarsometatarsal articulations. The overlying soft tissues are n ormal as imaged. There is advanced atherosclerotic calcification of the regional arteries. IMPRESSION: 1. No acute fracture is identified. Specifically, there is no fracture seen at the base of the fifth metatarsal is questioned on today's earlier examination. 2. Osteopenia with chronic and degenerative change as above. Electronically signed by: Sina Kemp M.D. 09/11/2023 8:08 PM
--- NOTE | 2023-09-11 21:54 | History & Physical Report ---
Date of Service September 11, 2023 Assessment & Plan (1) Type 1 diabetes mellitus: (2) History of hemorrhagic cerebrovascular accident (CVA) with residual deficit: (3) Closed supracondylar fracture of right elbow: (4) Recurrent falls: (5) Hyponatremia: Plan Pt is a 73yoM with PMhx significant for CVA with R sided residual motor and sensory dysfunction, ambulatory dysfunction, HTN, HLD, DMI, chronic pain admitted with right intracondylar/supracondylar fracture of the distal humerus in the setting of frequent falls. R intracondylar/supracondylar fracture of the distal humerus Falls Pt had 2 mechanical falls while visiting sons from [place], about to be moved to [facility] in [place] [facility] falls happened while putting socks on or pulling up pants Forearm XR in ED noting right intracondylar/supracondylar fracture of the distal humerus Head CT and other imaging unremarkable Ortho consult- Dr Yu recommending conservative management with splint and CT of the fractured area CT right elbow pending pain control-continue home gabapentin and oxycodone. Tylenol and IV Dilaudid also added PT/OT once stable Falls Pt with frequent falls Per son sounds mechanical as noted above Does have Hx of stroke about 20 years ago with right sided dysfunction, uses leg brace at baseline. UA ordered and pending to rule out an infectious cause Chest XRAY just noting cardiomegaly Head CT with no acute findings. PT/OT once stable DMI Pt is type 1 diabetic Glucose of 379 on admission, normal anion gap On Lantus 20U qhs and ISS Continue home Lantus 20U qhs with ISS IV fluids Pharmacy Glycemic consult placed Hyponatremia Sodium 130 on admission In setting of hyperglycemia, corrected sodium ~137 On IV fluids Monitor with AM labs Continue other home meds as ordered CODE STATUS: Pt only agreeable to chest compressions per discussion with pt and son in the room DVT prophylaxis: heparin SQ (does not appear to be undergoing surgical procedure at this time Diet: HH Dispo: Med/Surg History of Present Illness Chief Complaint: Fall Primary Care Provider: PARK EDWARD Pt is a 73yoM with PMhx significant for CVA with R sided residual motor and sensory dysfunction, ambulatory dysfunction, HTN, HLD, DMI, chronic pain admitted with right intracondylar/supracondylar fracture of the distal humerus in the setting of frequent falls. Pt seen with a son at bedside. Was having splint placed and in pain. Son states that the pt lives in [place]. Pt was visiting family in the area and had 2 falls at 11pm the day before admission and around 11AM the day of admission. States that the family is in the process of moving their dad closer to stay at [facility]. He has a room but it just needs to be furnished. State that the goal was to have him be moved in by september. Son states that the falls happened mechanically while dad was either trying to pull up his pants or put socks on. He notes that his house does not have the ADA/handicap things that his dad typically has at his residence. Son states that pt does not typically have sensation on the right side given his stroke history so his complaints of pain after the fall prompted him to bring him to the ED for further evaluation. Allergies Allergy/AdvReac Type Severity Reaction Status Date / Time terbinafine [From Lamisil] Allergy Intermediate Rash Unverified 09/11/23 17:29 Home Medications Medication Instructions Recorded Confirmed Type amitriptyline 50 mg tablet 50 mg PO DAILY 09/11/23 09/11/23 History atenolol 25 mg tablet 25 mg PO DAILY 09/11/23 09/11/23 History atorvastatin 40 mg tablet 40 mg PO DAILY 09/11/23 09/11/23 History benazepril 10 mg tablet 10 mg PO DAILY 09/11/23 09/11/23 History diltiazem HCl 120 mg 120 mg PO DAILY 09/11/23 09/11/23 History capsule,extended release 24 hr docusate sodium 100 mg tablet 100 mg PO BID 09/11/23 09/11/23 History gabapentin 800 mg tablet 800 mg PO TID 09/11/23 09/11/23 History insulin glargine 100 unit/mL (3 21 unit subcut HS 09/11/23 09/11/23 History mL) subcutaneous pen (Lantus Solostar U-100 Insulin) insulin lispro 100 unit/mL 0 sliding scale dose subcut TID 09/11/23 09/11/23 History subcutaneous pen (Humalog KwikPen (U-100) Insulin) mirabegron 50 mg tablet,extended 50 mg PO DAILY 09/11/23 09/11/23 History release 24 hr (Myrbetriq) oxycodone 5 mg tablet 5 mg PO QAM PRN Pain 09/11/23 09/11/23 History polyethylene glycol 3350 17 gram 17 g PO DAILY 09/11/23 09/11/23 History oral powder packet (Miralax) Past Med/Surg History Medical History Hyperlipidemia Hypertension History of stroke with residual deficit Hemorrhagic cerebrovascular accident (CVA) Social History Smoking Status: Former smoker marital status: / Feels Safe at Home: Yes Review of Systems Review of Systems: All systems reviewed & are unremarkable except as noted in Subjective Physical Exam Physical Exam: General: Alert, oriented. In distress as splint was being applied Skin: bruise on forehead Psych: Appropriate mood and affect Neuro: unable to move right arm without pain, hemiparesis on R at baseline HEENT: bruise on forehead Chest: Nontender to palpation. CV: RRR Resp: Breath sounds clear bilaterally, no increased effort of breathing. Abdomen: Soft, nontender Extremities: No edema in lower extremities bilaterally. Results & Data Results & Data Vital Signs (Past 12 Hours) Vital Signs Temp Pulse Pulse Resp BP BP Pulse Ox 09/11/23 20:30 85 14 156/91 H 09/11/23 20:00 79 16 160/85 H 09/11/23 19:30 80 12 169/84 H 95 09/11/23 19:28 81 09/11/23 19:28 81 12 95 09/11/23 19:25 83 19 165/86 H 96 09/11/23 18:06 78 156/79 H 96 09/11/23 15:00 76 19 153/85 H 93 09/11/23 13:01 94 09/11/23 13:00 82 16 144/75 H 92 09/11/23 12:11 36.8 C 84 20 135/76 97 O2 Del Method 09/11/23 20:30 09/11/23 20:00 09/11/23 19:30 Room Air 09/11/23 19:28 09/11/23 19:28 Room Air 09/11/23 19:25 Room Air 09/11/23 18:06 Room Air 09/11/23 15:00 Room Air 09/11/23 13:01 09/11/23 13:00 09/11/23 12:11 Room Air (3) Closed supracondylar fracture of right elbow Encounter type: initial encounter Qualified Code(s): S42.411A - Displaced simple supracondylar fracture without intercondylar fracture of right humerus, initial encounter for closed fracture
[2023-09-11] MEDS ORDERED: GLUCOSE 10 TAB/TUBE PO PRN (22:21)
[2023-09-11] MEDS ORDERED: PHARMACY GLYCEMIC MGMT CONSULT PRN (22:21)
[2023-09-11] MEDS ORDERED: GLUCAGON FOR INJ 1 MG VIAL SQ PRN (22:21)
[2023-09-11] MEDS ORDERED: GLUCOSE 40% GEL 15 GM TUBE PO PRN (22:21)
[2023-09-11] MEDS ORDERED: CARBOHYDRATES FOR HYPOGLYCEMIA PO PRN (22:21)
[2023-09-11] MEDS ORDERED: DEXTROSE 50% 50 ML SYRINGE IV PRN (22:21)
[2023-09-11] MEDS ORDERED: LANTUS PER UNIT CHARGE SC SCH (22:45)
[2023-09-11] MEDS ORDERED: oxyCODONE HCL IR 5 MG TAB (IMMEDIATE RELEASE) PO PRN (23:41)
[2023-09-11] MEDS: SODIUM CHLORIDE 0.9% 1,000 ML IV SCH (23:50)
[2023-09-12] MEDS ORDERED: ACETAMINOPHEN 500 MG TAB PO PRN (00:18)
[2023-09-12] MEDS ORDERED: ONDANSETRON INJ 2 MG/ML 2 ML VIAL IV PRN (00:19)
[2023-09-12] MEDS ORDERED: ALUMINUM/MAGNESIUM SUSP 30 ML UDC PO PRN (00:19)
[2023-09-12] MEDS ORDERED: HYDROmorphone INJ 0.5 MG/0.5 ML SYR IV PRN (00:20)
[2023-09-12] MEDS: INSULIN ASPART PER UNIT CHARGE SC SCH ×5 (00:43→20:24)
[2023-09-12] MEDS: HEPARIN SOD 5,000 UNIT/0.5 ML VIAL SQ SCH ×3 (05:49→21:10)
[2023-09-12] MEDS: oxyCODONE HCL IR 5 MG TAB (IMMEDIATE RELEASE) PO PRN ×4 (05:56→20:20)
[2023-09-12 06:18] LABS: Appearance Urine Clear (Clear); Bacteria Urine Automated Negative (Negative); Bilirubin Urine Negative (Negative); Blood Urine Negative (Negative); Cast Urine Automated 0 /lpf (0-5); Color Urine Yellow; Glucose Urine UA 3+ (Negative); Ketones Urine 3+ (Negative); Leukocyte Esterase Urine Negative (Negative); Nitrite Urine Negative (Negative); Protein Urine Trace (Negative); RBC Urine Automated 0-4 /hpf (0-4); Specific Gravity Urine 1.026 (1.000-1.030); Urobilinogen Urine Negative (Negative)
[2023-09-12] MEDS: ATORVASTATIN 40 MG TAB PO SCH (07:46)
[2023-09-12] MEDS: ATENOLOL 25 MG TABLET PO SCH (07:46)
[2023-09-12] MEDS: VIBEGRON 75 MG TAB PO SCH (07:47)
[2023-09-12] MEDS: ENALAPRIL MALEATE 10 MG TAB PO SCH (07:47)
[2023-09-12] MEDS: GABAPENTIN 800 MG TAB PO SCH ×3 (07:47→20:26)
[2023-09-12] MEDS: DOCUSATE SODIUM 100 MG CAP PO SCH ×2 (07:47→20:20)
[2023-09-12] MEDS: dilTIAZem HCL 120 MG CAPCR PO SCH (07:47)
[2023-09-12] MEDS: POLYETHYLENE (MIRALAX) 17 GM PACK PO SCH (07:48)
--- NOTE | 2023-09-12 07:57 | CT Scan Report ---
RIGHT ELBOW CT WITHOUT CONTRAST CLINICAL HISTORY: Evaluate supracondylar fracture. COMPARISON STUDY: Right elbow radiographs performed earlier today. TECHNIQUE: Axial images of the right elbow were obtained without IV contrast. Sagittal and coronal re constructions were viewed. Automated exposure control was utilized for the study. A dose lowering te chnique was utilized adhering to the principles of ALARA. FINDINGS: Note is made of an acute minimally displaced intercondylar fracture of the distal right hum erus. This has a T-shaped component without significant displacement. No additional fractures within the right elbow are present. 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 Soft tissue swelling is no yonny. There is no soft tissue gas. There is no proximal right radial or ulnar fracture. There is evide nce for an old, healed distal right humeral fracture as well. IMPRESSION: 1. Acute minimally displaced intercondylar distal right humeral fracture, as described above. 2. Evidence for old, healed distal right humeral fracture. 3. Moderate right elbow osteoarthritis. ACT 112: Negative or not required by law. Electronically signed by: Jose F Gupta M.D. 09/12/2023 7:54 AM
[2023-09-12 09:06] LABS: Basophils # (auto) 0.03 K/uL (0.00-0.20); Basophils % (auto) 0.3 %; Eosinophils # (auto) 0.11 K/uL (0.00-0.50); Hematocrit (blood only) 42.8 % (42.0-52.0); Hemoglobin 14.5 g/dl (14.0-18.0); Immature Granulocytes # (auto) 0.07 K/uL (0.01-0.20); Immature Granulocytes % (auto) 0.7 %; Lymphocytes # (auto) 2.04 K/uL (1.20-3.40); Mean Corpuscular Hemoglobin 32.2 pg (25.0-34.0); Mean Corpuscular Hgb Conc 33.9 g/dL (32.0-36.0); Mean Corpuscular Volume 95.1 fL (80.0-100.0); Mean Platelet Volume 8.7 fL (9.4-12.4); Monocytes # (auto) 1.22 K/uL (0.11-0.59); Monocytes % (auto) 11.4 %; Neutrophils # (auto) 7.26 K/uL (1.40-6.50); Neutrophils % (auto) 67.6 %; Platelet Count 263 K/uL (130-400); RDW Coefficient of Variation 12.8 % (11.5-14.5); RDW Standard Deviation 44.3 fL (36.4-46.3); White Blood Count 10.73 K/ul (4.8-10.8)
[2023-09-12] MEDS ORDERED: LANTUS PER UNIT CHARGE SC ONE ×2 (09:45→21:00)
--- NOTE | 2023-09-12 10:00 | Orthopedic Consultation ---
Date of Consultation September 12, 2023 Assessment & Plan (1) Closed supracondylar fracture of right elbow: He has an acute, minimally displaced supracondylar humerus fracture in his right elbow in the same area as a previous supracondylar humerus fracture malunion. He has evidence of numerous malunited fractures in his right upper extremity, including distal clavicle, midshaft humerus, supracondylar humerus, and distal ulnar shaft. He has a previous history of stroke and his right arm is nonfunctional at baseline. I would recommend nonoperative treatment of this injury. We will keep him in the splint for now. Follow-up in orthopedics clinic with Dr. Yu in 1 to 2 weeks for repeat x-rays and likely conversion to a long-arm cast. Please call [facility] at [phone] to make an appointment. Orthopedics will sign off at this point. History of Present Illness Reason for Consultation: R supracondylar fracture Requesting Physician: Dr. Dominguez Attending Physician: Danisha Márquez MD History of Present Illness Mr. Puente is a 73-year-old male who reports a history of frequent falls, and new right elbow pain. He reports that he lives in [place], but was up here visiting his sons, who lives in the local area. He reports multiple falls over the past few days, typically when he is leaning over to put on close and loses his balance. He reports a previous history of stroke many years ago, with complete loss of use of his right arm. He states that he has no voluntary muscle control, and no significant sensation in that right arm other than pain. Currently, he reports intermittent episodes of pain in the right elbow, but at other times he is quite comfortable and does not feel anything in his right arm. He reports that his sons are currently looking into permanent long-term placement in the local area here at [facility], but these arrangements have not yet been made. Allergies Allergy/AdvReac Type Severity Reaction Status Date / Time terbinafine [From Lamisil] Allergy Intermediate Rash Unverified 09/11/23 17:29 Home Medications Medication Instructions Recorded Confirmed Type amitriptyline 50 mg tablet 50 mg PO DAILY 09/11/23 09/11/23 History atenolol 25 mg tablet 25 mg PO DAILY 09/11/23 09/11/23 History atorvastatin 40 mg tablet 40 mg PO DAILY 09/11/23 09/11/23 History benazepril 10 mg tablet 10 mg PO DAILY 09/11/23 09/11/23 History diltiazem HCl 120 mg 120 mg PO DAILY 09/11/23 09/11/23 History capsule,extended release 24 hr docusate sodium 100 mg tablet 100 mg PO BID 09/11/23 09/11/23 History gabapentin 800 mg tablet 800 mg PO TID 09/11/23 09/11/23 History insulin glargine 100 unit/mL (3 21 unit subcut HS 09/11/23 09/11/23 History mL) subcutaneous pen (Lantus Solostar U-100 Insulin) insulin lispro 100 unit/mL 0 sliding scale dose subcut TID 09/11/23 09/11/23 History subcutaneous pen (Humalog KwikPen (U-100) Insulin) mirabegron 50 mg tablet,extended 50 mg PO DAILY 09/11/23 09/11/23 History release 24 hr (Myrbetriq) oxycodone 5 mg tablet 5 mg PO QAM PRN Pain 09/11/23 09/11/23 History polyethylene glycol 3350 17 gram 17 g PO DAILY 09/11/23 09/11/23 History oral powder packet (Miralax) Patient History Medical History Hyperlipidemia Hypertension History of stroke with residual deficit Hemorrhagic cerebrovascular accident (CVA) Social History Smoking Status: Former smoker Tobacco Type: Cigarettes Second Hand Exposure: No; Do You Dip or Chew Tobacco: No; Tobacco Cessation Education Requested by Patient: No Hx Alcohol Use: Yes Alcohol type: wine Hx Substance Use: No Preferred Language: Portuguese Communication Ability: Effective Tank Carpenter Required: No Beliefs That Will Affect Care: Worship Worship Beliefs: Moravian. marital status: / Current Living Situation: Family and Personal Care Facility Current Living Situation Comment: Lives with Son, will be moving to [facility]. Other Information That Helps Us Care for You: No Feels Safe at Home: Yes Safety Concerns: Feels Safe At This Time Assistive Devices: Brace/Splint/Immobilizer, Hospital Bed and Walker Physical Exam Physical Exam: He seems to have word finding difficulty and difficulty with his speech, but he is oriented to person, place, and time. Examination of the right arm reveals a long-arm posterior splint in place. He has no voluntary motor control or sensation in his hand. Compartments are soft and compressible. Results & Data Vital Signs (Past 12 Hours) Vital Signs Temp Pulse Pulse Resp BP BP Pulse Ox 09/12/23 07:29 36.9 C 93 H 16 158/76 H 93 09/12/23 00:24 88 95 09/11/23 23:46 09/11/23 23:46 09/11/23 23:46 36.8 C 99 H 16 162/91 H 93 09/11/23 23:45 09/11/23 23:23 95 H 09/11/23 23:00 92 H 12 172/86 H 96 09/11/23 22:30 92 H 16 167/82 H 09/11/23 22:21 94 H Pulse Ox O2 Del Method O2 Del Method 09/12/23 07:29 Room Air 09/12/23 00:24 Room Air 09/11/23 23:46 Room Air 09/11/23 23:46 Room Air 09/11/23 23:46 Room Air 09/11/23 23:45 95 Room Air 09/11/23 23:23 09/11/23 23:00 Room Air 09/11/23 22:30 09/11/23 22:21 Diagnostic Findings Numerous x-rays were reviewed, including right shoulder, right elbow, right forearm, right hip, right femur, bilateral lower legs, and bilateral feet were independently interpreted by me. Old malunited fractures are seen of the right distal clavicle, right midshaft humerus, right distal humerus, and right distal ulnar shaft. In the right elbow specifically, it appears that there is an acute minimally displaced fracture in the supracondylar area in the same region as a previous malunited fracture. All x-rays show diffuse osteopenia. CT scan of the right elbow was independently interpreted by me and confirms an acute minimally displaced fracture through the same region as a previous malunited supracondylar humerus fracture. There may be a nondisplaced intracondylar split, but this is difficult to visualize due to the severe osteopenia. Moderate elbow joint arthritis. (1) Closed supracondylar fracture of right elbow Encounter type: initial encounter Qualified Code(s): S42.411A - Displaced simple supracondylar fracture without intercondylar fracture of right humerus, initial encounter for closed fracture
[2023-09-12 10:45] LABS: Estimated Average Glucose 192 mg/dl; Hemoglobin A1C 8.3 % (4.5-5.6)
--- NOTE | 2023-09-12 12:39 | Hospitalist Progress Note ---
Date of Service September 12, 2023 Assessment & Plan (1) Type 1 diabetes mellitus: (2) History of hemorrhagic cerebrovascular accident (CVA) with residual deficit: (3) Closed supracondylar fracture of right elbow: (4) Recurrent falls: (5) Hyponatremia: Plan Pt is a 73yoM with PMhx significant for CVA with R sided residual motor and sensory dysfunction, ambulatory dysfunction, HTN, HLD, DMI, chronic pain admitted with right intracondylar/supracondylar fracture of the distal humerus in the setting of frequent falls. R intracondylar/supracondylar fracture of the distal humerus Falls Pt had 2 mechanical falls while visiting sons from [place], about to be moved to [facility] in [place] [facility] falls happened while putting socks on or pulling up pants Forearm XR in ED noting right intracondylar/supracondylar fracture of the distal humerus Head CT and other imaging unremarkable Ortho consult- Dr Yu recommending conservative management with splint and CT of the fractured area, follow-up with Ortho on discharge. pain control-continue home gabapentin and oxycodone. Tylenol and IV Dilaudid also added PT/OT, await recommendation. Falls Pt with frequent falls Per son sounds mechanical as noted above Does have Hx of stroke about 20 years ago with right sided dysfunction, uses leg brace at baseline. UA negative for UTI. Chest XRAY just noting cardiomegaly Head CT with no acute findings. PT/OT. DMI Pt is type 1 diabetic Glucose of 379 on admission, normal anion gap On Lantus 20U qhs and ISS Continue home Lantus 20U qhs with ISS IV fluids Pharmacy Glycemic consult placed Hyponatremia Sodium 130 on admission In setting of hyperglycemia, corrected sodium ~137 Monitor with AM labs Continue other home meds as ordered CODE STATUS: Pt only agreeable to chest compressions per discussion with pt and son in the room per admitting attending DVT prophylaxis: heparin SQ Diet: HH Dispo: Med/Surg. PT/OT. Likely will need rehab. Admission and Anticipated Discharge Date Admission Date: September 11, 2023 Subjective Patient was seen and examined at bedside. Patient was lying in bed, on room air, NAD, resting comfortably. Patient reports bearable pain at fracture site in his right upper arm. Patient denies fever/sore throat/cough/chills/chest pain. Patient reports eating okay and moving bowels okay. Physical Exam Physical Exam: GENERAL: Alert and oriented x3. NAD, on RA. HEENT: No pallor, no icterus. Pupils equal, round and reactive to light. Oral mucosa moist. NECK: No JVD, no neck masses. HEART: S1 and S2 heard. Regular rate and rhythm. No murmur, no gallop. RESPIRATORY SYSTEM: Normal AP diameter. No accessory muscle use. No wheezing, no crackles. ABDOMEN: Soft, bowel sounds present, nontender, no distention. CENTRAL NERVOUS SYSTEM: No facial droop. Speech is clear. Obeys simple commands. Moves extremities. Hemiparesis on right at baseline. EXTREMITIES: No edema, no erythema seen. Right upper extremity in splint. Bruise noted forehead. Results & Data Results & Data Vital Signs (Past 12 Hours) Vital Signs Temp Pulse Resp BP Pulse Ox O2 Del Method 09/12/23 07:29 36.9 C 93 H 16 158/76 H 93 Room Air (3) Closed supracondylar fracture of right elbow Encounter type: initial encounter Qualified Code(s): S42.411A - Displaced simple supracondylar fracture without intercondylar fracture of right humerus, initial encounter for closed fracture
[2023-09-12] MEDS: SODIUM CHLORIDE 0.9% 1,000 ML IV SCH (13:25)
--- NOTE | 2023-09-12 14:13 | Pharmacy Report ---
Pharmacy Glycemic Short Note 2 - Date of Service September 12, 2023 - Glycemic Short BSG Results (Last 24 hours): 09/11/23 09/11/23 09/12/23 12:42 23:51 07:45 Glucose 379 H* POC Glucose 160 H 177 H 09/12/23 11:42 Glucose POC Glucose 248 H OUTPATIENT ANTIDIABETIC REGIMEN: * Lantus 21 units SC HS * Humalog SC TID (SSI, patient unable to give specifics on scale) HbA1c: 8.3% (09/12/23) ASSESSMENT: * BH is a 73 year old male who presented to ED on 09/11/23 for evaluation of repeated falls * Found to have R intracondylar/supracondylar fracture of distal humerus. Ortho recommending nonoperative treatment. * Pertinent PMH includes T1DM and hx of hemorrhagic CVA * Only half of basal dose given last evening. Remaining 50% given this morning and will plan to give full basal dose this evening. PLAN FOR INPATIENT GLYCEMIC CONTROL: * Hold outpatient oral diabetes medications * Basal insulin * Lantus 10 units SQ BID ordered previously * Will change to once daily basal starting w/ scale this evening to provide 10-20 units * Plan on patient's ~home dose tomorrow evening * Bolus insulin * NovoLog per scale ACHS or Q6hrs while NPO * Goal Range: Low 110 mg/dL - High 150 mg/dL * Correction Factor: 25 mg/dL/unit * Nutritional / Prandial insulin per carb ratio of 1 unit per 9 grams CHO consumed
--- NOTE | 2023-09-12 14:34 | Electrocardiogram Report ---
Test Reason : Blood Pressure : / mmHG Vent. Rate : 083 BPM Atrial Rate : 083 BPM P-R Int : 196 ms QRS Dur : 094 ms QT Int : 364 ms P-R-T Axes : 074 008 056 degrees QTc Int : 427 ms Normal sinus rhythm Normal ECG No previous ECGs available Confirmed by Edin Lockwood ([id number]) on 09/12/2023 2:34:11 PM Referred By: Confirmed By:Edin Lockwood
[2023-09-12] MEDS: AMITRIPTYLINE HCL 50 MG TAB PO SCH (20:21)
[2023-09-12] MEDS ORDERED: NON-FORMULARY MEDICATION (Insulin Glargine [Lantus Solostar U-100 Insulin] 100 unit/mL (3 SQ SCH (21:00)
[2023-09-13] MEDS: HEPARIN SOD 5,000 UNIT/0.5 ML VIAL SQ SCH ×3 (06:07→21:10)
[2023-09-13 07:20] LABS: BUN Creatinine Ratio 22.4 (10-20); Calcium 8.2 mg/dl (8.6-10.3); Est GFR (African American) 116.4 ml/min; Est GFR (Non-African American) 100.4 ml/min; Magnesium 2.1 mg/dl (1.7-2.4); Phosphorus 3.7 mg/dl (2.5-4.9); Potassium 3.7 mmol/L (3.5-5.1)
[2023-09-13] MEDS: DOCUSATE SODIUM 100 MG CAP PO SCH ×2 (07:26→21:10)
[2023-09-13] MEDS: ATENOLOL 25 MG TABLET PO SCH (07:27)
[2023-09-13] MEDS: ATORVASTATIN 40 MG TAB PO SCH (07:27)
[2023-09-13] MEDS: GABAPENTIN 800 MG TAB PO SCH ×3 (07:27→21:10)
[2023-09-13] MEDS: ENALAPRIL MALEATE 10 MG TAB PO SCH (07:27)
[2023-09-13] MEDS: dilTIAZem HCL 120 MG CAPCR PO SCH (07:31)
[2023-09-13] MEDS: POLYETHYLENE (MIRALAX) 17 GM PACK PO SCH (07:31)
[2023-09-13] MEDS: VIBEGRON 75 MG TAB PO SCH (07:31)
[2023-09-13] MEDS: INSULIN ASPART PER UNIT CHARGE SC SCH ×4 (08:06→21:11)
[2023-09-13] MEDS: oxyCODONE HCL IR 5 MG TAB (IMMEDIATE RELEASE) PO PRN ×3 (11:25→21:12)
--- NOTE | 2023-09-13 15:36 | Hospitalist Progress Note ---
Date of Service September 13, 2023 Assessment & Plan (1) Type 1 diabetes mellitus: (2) History of hemorrhagic cerebrovascular accident (CVA) with residual deficit: (3) Closed supracondylar fracture of right elbow: (4) Recurrent falls: (5) Hyponatremia: Plan Pt is a 73yoM with PMhx significant for CVA with R sided residual motor and sensory dysfunction, ambulatory dysfunction, HTN, HLD, DMI, chronic pain admitted with right intracondylar/supracondylar fracture of the distal humerus in the setting of frequent falls. R intracondylar/supracondylar fracture of the distal humerus Falls Pt had 2 mechanical falls while visiting sons from [place], about to be moved to [facility] in [place] falls happened while putting socks on or pulling up pants Forearm XR in ED noting right intracondylar/supracondylar fracture of the distal humerus Head CT and other imaging unremarkable Ortho consult- Dr Yu recommending conservative management with splint and CT of the fractured area, follow-up with Ortho on discharge. pain control-continue home gabapentin and oxycodone. Tylenol and IV Dilaudid also added PT/OT, await recommendation. Falls Pt with frequent falls Per son sounds mechanical as noted above Does have Hx of stroke about 20 years ago with right sided dysfunction, uses leg brace at baseline. UA negative for UTI. Chest XRAY just noting cardiomegaly Head CT with no acute findings. PT/OT. H/o Rt hemiparesis current Rt intercondylar # The patient has medical condition which requires positioning of the body in ways not feasible with ordinary bed. Hence Semi electric hospital bed with side rails and mattress ordered. DMI Pt is type 1 diabetic Glucose of 379 on admission, normal anion gap On Lantus 20U qhs and ISS Continue home Lantus 20U qhs with ISS IV fluids Pharmacy Glycemic consult placed Hyponatremia Sodium 130 on admission In setting of hyperglycemia, corrected sodium ~137 Monitor with AM labs Continue other home meds as ordered CODE STATUS: Pt only agreeable to chest compressions per discussion with pt and son in the room per admitting attending DVT prophylaxis: heparin SQ Diet: HH Dispo: Med/Surg. PT/OT. likely [facility] Admission and Anticipated Discharge Date Admission Date: September 11, 2023 Subjective Patient was seen and examined at bedside. Patient was lying in bed, on room air, NAD, resting comfortably. Patient reports improving pain at fracture site in his right upper arm. Patient denies fever/sore throat/cough/chills/chest pain. Patient reports eating okay and moving bowels okay. Patient's son at bedside was also updated. Discussed with PT, orthopedic consulted to evaluate his AFO. Physical Exam Physical Exam: GENERAL: Alert and oriented x3. NAD, on RA. HEENT: No pallor, no icterus. Pupils equal, round and reactive to light. Oral mucosa moist. NECK: No JVD, no neck masses. HEART: S1 and S2 heard. Regular rate and rhythm. No murmur, no gallop. RESPIRATORY SYSTEM: Normal AP diameter. No accessory muscle use. No wheezing, no crackles. ABDOMEN: Soft, bowel sounds present, nontender, no distention. CENTRAL NERVOUS SYSTEM: No facial droop. Speech is clear. Obeys simple commands. Moves extremities. Hemiparesis on right at baseline. EXTREMITIES: No edema, no erythema seen. Right upper extremity in splint. Bruise noted forehead. Results & Data Results & Data Vital Signs (Past 12 Hours) Vital Signs Temp Pulse Resp BP Pulse Ox O2 Del Method 09/13/23 08:26 36.6 C 93 H 16 155/76 H 95 Room Air 09/13/23 08:00 Room Air (3) Closed supracondylar fracture of right elbow Encounter type: initial encounter Qualified Code(s): S42.411A - Displaced simple supracondylar fracture without intercondylar fracture of right humerus, initial encounter for closed fracture
[2023-09-13] MEDS ORDERED: LANTUS PER UNIT CHARGE SC SCH (21:00)
[2023-09-13] MEDS: AMITRIPTYLINE HCL 50 MG TAB PO SCH (21:10)
[2023-09-14] MEDS: HEPARIN SOD 5,000 UNIT/0.5 ML VIAL SQ SCH (05:27)
[2023-09-14] MEDS: ENALAPRIL MALEATE 10 MG TAB PO SCH (07:53)
[2023-09-14] MEDS: dilTIAZem HCL 120 MG CAPCR PO SCH (07:53)
[2023-09-14] MEDS: DOCUSATE SODIUM 100 MG CAP PO SCH (07:53)
[2023-09-14] MEDS: GABAPENTIN 800 MG TAB PO SCH (07:53)
[2023-09-14] MEDS: ATORVASTATIN 40 MG TAB PO SCH (07:53)
[2023-09-14] MEDS: POLYETHYLENE (MIRALAX) 17 GM PACK PO SCH (07:54)
[2023-09-14] MEDS: ATENOLOL 25 MG TABLET PO SCH (07:54)
[2023-09-14] MEDS: INSULIN ASPART PER UNIT CHARGE SC SCH ×2 (07:56→12:06)
[2023-09-14] MEDS: oxyCODONE HCL IR 5 MG TAB (IMMEDIATE RELEASE) PO PRN ×2 (08:03→12:09)
[2023-09-14] MEDS: VIBEGRON 75 MG TAB PO SCH (09:57)
--- NOTE | 2023-09-14 11:19 | Discharge Summary ---
Date of Service September 14, 2023 Admission HPI Per Admitting Provider Pt is a 73yoM with PMhx significant for CVA with R sided residual motor and sensory dysfunction, ambulatory dysfunction, HTN, HLD, DMI, chronic pain admitted with right intracondylar/supracondylar fracture of the distal humerus in the setting of frequent falls. Pt seen with a son at bedside. Was having splint placed and in pain. Son states that the pt lives in [place]. Pt was visiting family in the area and had 2 falls at 11pm the day before admission and around 11AM the day of admission. States that the family is in the process of moving their dad closer to stay at [facility]. He has a room but it just needs to be furnished. State that the goal was to have him be moved in by mid September. Son states that the falls happened mechanically while dad was either trying to pull up his pants or put socks on. He notes that his house does not have the ADA/handicap things that his dad typically has at his residence. Son states that pt does not typically have sensation on the right side given his stroke history so his complaints of pain after the fall prompted him to bring him to the ED for further evaluation. Admission Exam Per Admitting Provider General: Alert, oriented. In distress as splint was being applied Skin: bruise on forehead Psych: Appropriate mood and affect Neuro: unable to move right arm without pain, hemiparesis on R at baseline HEENT: bruise on forehead Chest: Nontender to palpation. CV: RRR Resp: Breath sounds clear bilaterally, no increased effort of breathing. Abdomen: Soft, nontender Extremities: No edema in lower extremities bilaterally. Principal Diagnosis Right intercondylar fracture Falls History of right hemiparesis Discharge Exam GENERAL: Alert and oriented x3. NAD, on RA. HEENT: No pallor, no icterus. Pupils equal, round and reactive to light. Oral mucosa moist. NECK: No JVD, no neck masses. HEART: S1 and S2 heard. Regular rate and rhythm. No murmur, no gallop. RESPIRATORY SYSTEM: Normal AP diameter. No accessory muscle use. No wheezing, no crackles. ABDOMEN: Soft, bowel sounds present, nontender, no distention. CENTRAL NERVOUS SYSTEM: No facial droop. Speech is clear. Obeys simple commands. Moves extremities. Hemiparesis on right at baseline. EXTREMITIES: No edema, no erythema seen. Right upper extremity in splint. Bruise noted forehead. Discharge Data Allergies Allergy/AdvReac Type Severity Reaction Status Date / Time terbinafine [From Lamisil] Allergy Intermediate Rash Unverified 09/11/23 17:29 Consultations 09/11/23 21:18 ED Decision to Admit Stat 09/11/23 23:41 Consult Orthopedic Surgery Routine Ordered Studies 09/11/23 12:43 CT cervical spine wo con Stat CT head/brain wo con Stat 09/11/23 21:02 CT elbow RT wo con Stat Hospital Course (1) Type 1 diabetes mellitus: (2) History of hemorrhagic cerebrovascular accident (CVA) with residual deficit: (3) Closed supracondylar fracture of right elbow: (4) Recurrent falls: (5) Hyponatremia: Plan Pt is a 73yoM with PMhx significant for CVA with R sided residual motor and sensory dysfunction, ambulatory dysfunction, HTN, HLD, DMI, chronic pain admitted with right intracondylar/supracondylar fracture of the distal humerus in the setting of frequent falls. He was managed for the following: R intracondylar/supracondylar fracture of the distal humerus Falls Pt had 2 mechanical falls while visiting sons from [place], about to be moved to [facility] in [facility] falls happened while putting socks on or pulling up pants Forearm XR in ED noting right intracondylar/supracondylar fracture of the distal humerus Head CT and other imaging unremarkable Ortho consult- Dr Yu recommending conservative management with splint and CT of the fractured area, follow-up with Ortho on discharge. Pt and his son are aware to f/u ortho in 1-2 weeks of dc. pain control-continue home gabapentin and oxycodone. PT/OT, await recommendation. Falls Pt with frequent falls Per son sounds mechanical as noted above Does have Hx of stroke about 20 years ago with right sided dysfunction, uses leg brace at baseline. UA negative for UTI. Chest XRAY just noting cardiomegaly Head CT with no acute findings. PT/OT. H/o Rt hemiparesis current Rt intercondylar # The patient has medical condition which requires positioning of the body in ways not feasible with ordinary bed. Hence Semi electric hospital bed with side rails and mattress ordered. DMI Pt is type 1 diabetic Glucose of 379 on admission, normal anion gap On Lantus 20U qhs and ISS Continue home Lantus 20U qhs with ISS Patient to follow-up with diabetic clinic on discharge. Hyponatremia Sodium 130 on admission In setting of hyperglycemia, corrected sodium ~137 Monitor with AM labs, stable. Continue other home meds as ordered CODE STATUS: Pt only agreeable to chest compressions per discussion with pt and son in the room per admitting attending DVT prophylaxis: heparin SQ Diet: Dispo: Med/Surg. PT/OT. likely dc ev to [facility] f Patient is being discharged to [facility] with following instruction at the point of discharge: Follow-up with your primary care physician within a week time and likely you will need labs CBC/CMP/magnesium/phosphorus. Follow-up with orthopedics in 1 to 2 weeks time upon discharge. As discussed at the bedside, closely follow-up with the diabetic clinic for ongoing management of your diabetes. Take your medications as prescribed. Please make sure that you are able to get your medications today by calling your pharmacy before you leave the hospital so that your treatment continuity is not broken. Home Health Attestation I certify that this patient is under my care and that I, or a physicians assistant sales director working with me, had a face to-face encounter that meets the home health [id number] encounter requirements with this patient. The encounter with the patient was in whole, or in part, for the following medical condition, which is the primary reason for home health care (list medical condition): I certify that, based on my findings, the following services are medically necessary home health services: My clinical findings support the need for the above services because: Further, I certify that my clinical findings support that this patient is homebound (i.e. absences from home require considerable and taxing effort and are for medical reasons or mu-ism services or infrequently or of short durati on when for other reasons) because: Certification for Home Health Services: Based on the above findings, I certify that this patient is confined to the home and needs intermittent halfway care, physical therapy and/or speech therapy or continues to need occupational therapy. The patient is under my care, and I have initiated the establishment of the plan of care. This patient will be followed by a physician who will periodically review the plan of care. Total Time Total Time Spent Total Time Spent (In Minutes): 45 Discharge Plan Discharge Items Patient Disposition: Personal Retirement Reason For Visit: FALL Discharge Diagnosis: Right intercondylar fracture Falls History of right hemiparesis Activity: As commented below Activity Comment: Per PT/OT. Non-emergency contact: Primary Care Provider Call non-emergency contact if: you have any medication questions, your symptoms worsen and your temperature is above 101.5 Follow-up/Referrals: Guanaco Vivar MD [Primary Care Provider] - Diet: Carb Count or DM1 Addtl Attending Provider Instructions: Follow-up with your primary care physician within a week time and likely you will need labs CBC/CMP/magnesium/phosphorus. Follow-up with orthopedics in 1 to 2 weeks time upon discharge. As discussed at the bedside, closely follow-up with the diabetic clinic for ongoing management of your diabetes. Take your medications as prescribed. Please make sure that you are able to get your medications today by calling your pharmacy before you leave the hospital so that your treatment continuity is not broken. Pending Studies at Discharge: No Stand-Alone Forms: [employer], Smoking Cessation Skilled Items Patient informed of condition?: Yes DNR: Yes (Conditional code, only chest compression.) Discharge Level of Care: Other Communicable Disease: No Discharge Prognosis: Stable Lines: None Urinary Catheter: No Medications and DC Order Prescriptions: Continued atorvastatin 40 mg tablet 40 mg PO DAILY atenolol 25 mg tablet 25 mg PO DAILY amitriptyline 50 mg tablet 50 mg PO DAILY gabapentin 800 mg tablet 800 mg PO TID diltiazem HCl 120 mg capsule,extended release 24hr 120 mg PO DAILY benazepril 10 mg tablet 10 mg PO DAILY oxycodone 5 mg tablet 5 mg PO QAM PRN (Reason: Pain) insulin lispro [Humalog KwikPen Insulin] 100 unit/mL insulin pen 0 sliding scale dose SUBCUT TID Rx Instructions: Patient does this per sliding scale but is here out of town and doesn't have the scale sheet with him insulin glargine [Lantus Solostar U-100 Insulin] 100 unit/mL (3 mL) insulin pen 21 unit SUBCUT HS Myrbetriq 50 mg tablet extended release 24 hr 50 mg PO DAILY polyethylene glycol 3350 [Miralax] 17 gram Powder In Packet 17 g PO DAILY docusate sodium 100 mg Tablet 100 mg PO BID Discharge Orders: Discharge Order (Routine); Ordered 09/14/23 Ordered By: Danisha Sylvester/Other Patient Handouts: Managing Type 1 Diabetes Admission Data Admit Date/Time: 09/11/23 21:48 Attending Provider: Danisha Márquez Admit Provider: Estela Dominguez Primary Care Provider: Guanaco Vivar Other Providers: Estela Dominguez; Davion Yu
== END 2023-09-14 12:59 | DRG 543 ==
LOC: ED 12:01 → SUATTDRO 21:48 → 3E 21:48

== ENCOUNTER 2023-12-08 11:06 | Inpatient (IN) ==
--- NOTE | 2023-12-08 11:56 | Emergency Department Note ---
Impression & Plan DKA (diabetic ketoacidosis), Pneumonia, COVID-19, High anion gap metabolic acidosis ED Provider Note NAME: BABAK LOVELACE Jr AGE: 73 SEX: M : 1950 ARRIVES VIA: Ambulance INFORMANT: Patient ED PROVIDER(S): Shaggy Johnston MD CHIEF COMPLAINT: Hyperglycemia. PLAN: Disposition: Admit MEDICAL DECISION MAKING: The patient is a pleasant 73-year-old gentleman with a past medical history of CVA with residual right-sided weakness and aphasia, type 1 diabetes who presents to the emergency department via EMS from his assisted living facility at [facility] for evaluation of elevated blood sugars which he noticed today in the 400s. He reports he contacted staff and upon consultation with their provider was referred to emergency department. Patient reports he did not take his insulin today as he did not eat anything. Review of the patient's medication list from [facility] does not list long-acting insulin though this was present on his discharge medication reconciliation from September. Patient does report having fevers and nausea and vomiting over the past 24 hours. Denies any chest pain or shortness of breath. He denies any abdominal pain. On evaluation the patient is fatigued appearing but no distress, afebrile with heart in the 110s and vital signs otherwise stable. Appears clinically dry. Neurologic exam is at baseline with right-sided weakness and aphasia. Abdomen is nontender. EKG without overt acute ischemia Chest x-ray demonstrates mild airspace opacities in the right to mid lower lung as well as left lung base suspicious for pneumonia given the patient reported fevers. WBC 12.8 K, nonspecific with neutrophil predominance but no left shift. H/H and platelets within normal limits. Chemistry demonstrates anion gap metabolic acidosis With anion gap of 20 and bicarbonate of 16. Glucose is 432 and so sodium corrects from 132 138. Serum osmolality is 308 consistent with the patient's clinically dry appearance. LFTs unremarkable. TSH within normal limits. Given pneumonia in setting of DKA blood cultures were obtained and empiric treatment with Zosyn initiated. MRSA swab was ordered. Procalcitonin was subsequently elevated at 0.67. Initial lactic acid 2.7. Patient treated with 2 L of IV fluid hydration with normal saline and subsequent maintenance fluids ordered with 1 half-normal saline and 20 meq of potassium. Insulin drip ordered for treatment of DKA. Case was discussed with Devika Rose PAC with Dr. Camp, [facility] hospitalist, who will evaluate the patient for admission. Respiratory [employer] subsqeuntly was positive for COVID-19. Further management per admitting team. Triage Nursing notes reviewed and agree them. Prior/external medical records reviewed Vital Signs: reviewed Differential diagnosis: Infection, dehydration, metabolic abnormality, hypo/hyperglycemia, electrolyte disturbance, anemia, hypoxia, cardiac sources, intracerebral event, toxicologic, neurologic, as well as other pathologies. ER treatment provided: See below. Diagnostics interpreted by me: ECG: Sinus tachycardia, 112 bpm, no ectopy, LVH, no overt ST ovation or depression, QTc 439, QRS 88 Cardiac Monitoring: An order for continuous cardiac monitoring was placed and demonstrated Sinus tachycardia, 112 bpm, no ectopy. Laboratory studies: See below Imaging studies: See below Consultation(s): Devika Rose PAC with Dr. Camp, [facility] hospitalist HPI: The patient is a pleasant 73-year-old gentleman with a past medical history of CVA with residual right-sided weakness and aphasia, type 1 diabetes who presents to the emergency department via EMS from his assisted living facility at [facility] for evaluation of elevated blood sugars which he noticed today in the s. He reports he contacted staff and upon consultation with their provider was referred to emergency department. Patient reports he did not take his insulin today as he did not eat anything. Review of the patient's medication list from [facility] does not list long-acting insulin though this was present on his discharge medication reconciliation from September. Patient does report having fevers and nausea and vomiting over the past 24 hours. Denies any chest pain or shortness of breath. He denies any abdominal pain. ROS: See above HPI for pertinent positives & negatives. A total of 10 systems reviewed and were otherwise negative. VITALS:See Below PHYSICAL EXAMINATION: GENERAL: Awake, alert, fatigued-appearing, in no distress HENT: Normocephalic, atraumatic. Oropharynx with dry mucous membranes and otherwise unremarkable. EYES: Normal conjunctiva. Sclera non-icteric. NECK: Supple. No nuchal rigidity. FROM. No JVD. RESPIRATORY: Clear to auscultation. CARDIAC: Tachycardic rate, normal rhythm. Extremities warm and well perfused. Pulses equal. ABDOMEN: Soft, non-distended. No tenderness to palpation. No rebound or guarding. No masses. RECTAL: Deferred. MUSCULOSKELETAL: Chest examination reveals no tenderness. The back is symmetrical on inspection without obvious abnormality. There is no CVA tenderness to palpation. No joint edema. LOWER EXTREMITIES: Calves are equal size bilaterally and non-tender. No edema. No discoloration. NEURO: Baseline right-sided weakness and aphasia. SKIN: No rash or jaundice noted. ED COURSE: Critical Care: I have personally spent greater than 55 minutes of critical care time in the direct management of this patient. This includes bedside care, interpretation of diagnostic studies, and testing, discussion with consultants, patient, and family members, and other required patient management activities. This 55 minutes is in excess of all separately billable procedures. Shaggy Johnston MD Past Med/Surg History Medical History Hyperlipidemia Hypertension History of stroke with residual deficit Hemorrhagic cerebrovascular accident (CVA) Social History (Updated 12/08/23 @ 14:35 by Devika Llanos PA-C) Smoking Status: Never smoker Tobacco Type: Cigarettes Second Hand Exposure: No; Do You Dip or Chew Tobacco: No; Hx Substance Use: No Preferred Language: Tajik Communication Ability: Impaired Communication Ability Comment: aphasia, confusion Curriculum And Assessment Coordinator Required: No Beliefs That Will Affect Care: Anglican Anglican Beliefs: Judaism. marital status: / Current Living Situation: Personal Care Facility Current Living Situation Comment: [facility] Feels Safe at Home: Yes Assistive Devices: Brace/Splint/Immobilizer and Cane Allergies Allergies Allergy/AdvReac Type Severity Reaction Status Date / Time terbinafine [From Lamisil] Allergy Intermediate Rash Unverified 09/11/23 17:29 Home Meds Home Medications Medication Instructions Recorded Confirmed amitriptyline 50 mg tablet 50 mg PO DAILY 09/11/23 12/08/23 atenolol 25 mg tablet 25 mg PO DAILY 09/11/23 12/08/23 atorvastatin 40 mg tablet 40 mg PO DAILY 09/11/23 12/08/23 benazepril 10 mg tablet 10 mg PO DAILY 09/11/23 12/08/23 diltiazem HCl 120 mg 120 mg PO DAILY 09/11/23 12/08/23 capsule,extended release 24 hr docusate sodium 100 mg tablet 100 mg PO BID 09/11/23 12/08/23 gabapentin 800 mg tablet 800 mg PO TID 09/11/23 12/08/23 insulin lispro 100 unit/mL 16 unit subcut UD 09/11/23 12/08/23 subcutaneous pen (Humalog KwikPen (U-100) Insulin) mirabegron 50 mg tablet,extended 50 mg PO DAILY 09/11/23 12/08/23 release 24 hr (Myrbetriq) polyethylene glycol 3350 17 gram 17 g PO DAILY 09/11/23 12/08/23 oral powder packet (Miralax) Glucagon Emergency Kit 1 mg subcut UD PRN Hypoglycemia 12/08/23 12/08/23 Results & Data (ED) Vital Signs Vital Signs - 24 hr 12/08/23 11:16 12/08/23 11:24 12/08/23 11:24 Temperature 36.8 C Temperature Source Oral Pulse Rate 115 H 110 H Pulse Rate [Apical] 105 H Pulse Rhythm Respiratory Rate 18 22 Respiratory Effort / Characteristics Non-Labored Non-Labored Respiratory Depth Normal Normal Blood Pressure 139/70 Blood Pressure [Right Arm] 139/70 Blood Pressure Mean 93 Blood Pressure Mean [Right Arm] 93 Pulse Oximetry 95 96 Oxygen Delivery Method Room Air Room Air Sepsis Recent Fever Within 48 Hours No Sepsis New/Unexplained Change in Mental Status N/A Sepsis Action Taken by Nursing No Action Required 12/08/23 12:12 12/08/23 13:00 Temperature Temperature Source Pulse Rate 108 H Pulse Rate [Apical] 114 H Pulse Rhythm Regular Respiratory Rate 22 22 Respiratory Effort / Characteristics Non-Labored Respiratory Depth Normal Blood Pressure Blood Pressure [Right Arm] 162/96 H Blood Pressure Mean Blood Pressure Mean [Right Arm] 118 Pulse Oximetry 96 96 Oxygen Delivery Method Room Air Room Air Sepsis Recent Fever Within 48 Hours Sepsis New/Unexplained Change in Mental Status Sepsis Action Taken by Nursing Laboratory Data 12/08/23 11:21 12/08/23 14:37 Lab Results 12/08/23 12/08/23 12/08/23 Range/Units 11:17 11:21 13:01 WBC 12.83 H (4.8-10.8) K/ul RBC 4.43 L (4.70-6.10) M/uL Hgb 15.1 (14.0-18.0) g/dl Hct 42.7 (42.0-52.0) % MCV 96.4 (80.0-100.0) fL MCH 34.1 H (25.0-34.0) pg MCHC 35.4 (32.0-36.0) g/dL RDW Std Deviation 47.6 H (36.4-46.3) fL RDW Coeff of Nazia 13.2 (11.5-14.5) % Plt Count 331 (130-400) K/uL MPV 9.0 L (9.4-12.4) fL Immature Gran % (Auto) 0.9 % Neut % (Auto) 78.1 % Lymph % (Auto) 11.6 % [place] % (Auto) 9.0 % Eos % (Auto) 0.2 % Baso % (Auto) 0.2 % Neut # (Auto) 10.03 H (1.40-6.50) K/uL Lymph # (Auto) 1.49 (1.20-3.40) K/uL [place] # (Auto) 1.16 H (0.11-0.59) K/uL Eos # (Auto) 0.02 (0.00-0.50) K/uL Baso # (Auto) 0.02 (0.00-0.20) K/uL Immature Gran # (Auto) 0.11 (0.01-0.20) K/uL VBG pH 7.25 L (7.36-7.41) VBG pCO2 36 L (38-50) mmHg VBG pO2 49 mmHg VBG HCO3 16 mmol/L VBG O2 Saturation 78.4 % VBG Base Excess -10.6 mEq/L Sodium 130 L (136-145) mmol/L Potassium 4.3 (3.5-5.1) mmol/L Chloride 94 L (98-107) mmol/L Carbon Dioxide 16 L (21-32) mmol/L Anion Gap 20 H (3-11) BUN 30 H (6-23) mg/dl Creatinine 1.00 (0.6-1.4) mg/dl Est Cr Clr Drug Dosing 33.7 ml/min Est GFR ( Amer) 85.6 ml/min Est GFR (Non-Af Amer) 73.8 ml/min BUN/Creatinine Ratio 30.0 H (10-20) Glucose 432 H* (70-99(Fasting)) mg/dl POC Glucose 431 H* (70-99) mg/dl Osmolality 308 H (280-300) mOsm/kg Calcium 9.5 (8.6-10.3) mg/dl Magnesium 2.2 (1.7-2.4) mg/dl Total Bilirubin 0.9 (0.2-1.0) mg/dl AST 15 (13-39) U/L ALT 16 (7-52) U/L Alkaline Phosphatase 128 H (34-104) U/L Total Protein 7.6 (6.0-8.3) gm/dl Albumin 4.4 (3.4-5.0) gm/dl Globulin 3.2 (2.5-4.0) gm/dl Albumin/Globulin Ratio 1.4 (0.9-2) TSH 2.883 (0.300-4.500) uIu/ml Administered Medications Insulin Human Regular 250 (units/ Sodium Chloride) 250 mls @ 5.1 mls/hr IV .Q24H ISABEL; Protocol Stop: 01/07/24 13:14 Last Titration: 12/08/23 16:50 Dose: 5.1 units/hr, 5.1 mls/hr Documented By: JARRETT Co-signed By: EDGAR Titration: 12/08/23 15:35 Dose: 6.4 units/hr, 6.4 mls/hr Documented By: JARRETT Co-signed By: BCN Titration: 12/08/23 14:31 Dose: 8 units/hr, 8 mls/hr Documented By: JARRETT Co-signed By: EDGAR Admin: 12/08/23 13:39 Dose: 8 units/hr, 8 mls/hr Documented By: MMG Co-signed By: EDGAR Discontinued Medications Sodium Chloride (Nss) 1,000 mls @ 999 mls/hr IV .Q1H1M ISABEL Stop: 12/08/23 12:45 Last Infusion: 12/08/23 13:44 Dose: Infused Documented By: Admin: 12/08/23 12:31 Dose: 999 mls/hr Documented By: JARRETT Piperacillin Sod/Tazobactam (Sod 4.5 gm/ Dextrose) 100 mls @ 200 mls/hr IV NOW ONE; Protocol Stop: 12/08/23 13:35 Last Infusion: 12/08/23 15:31 Dose: Infused Documented By: Admin: 12/08/23 14:40 Dose: 200 mls/hr Documented By: MMG Sodium Chloride (Nss) 1,000 mls @ 999 mls/hr IV .Q1H1M ONE Stop: 12/08/23 14:11 Last Infusion: 12/08/23 14:37 Dose: Infused Documented By: Admin: 12/08/23 13:38 Dose: 999 mls/hr Documented By: MMG Potassium Chloride/Sodium Chloride (1/2 Nss + 20meq Kcl 1000ml) 20 meq in 1,000 mls @ 150 mls/hr IV .Q6H40M ISABEL Stop: 01/07/24 13:14 Last Infusion: 12/08/23 15:31 Dose: 150 mls/hr Documented By: Admin: 12/08/23 13:38 Dose: 250 mls/hr Documented By: MMG Sodium Chloride (Nss) 500 mls @ 999 mls/hr IV .Q31M ONE Stop: 12/08/23 15:33 Last Infusion: 12/08/23 16:16 Dose: Infused Documented By: Admin: 12/08/23 15:38 Dose: 999 mls/hr Documented By: MMG Insulin Human Regular (Novolin-R Bolus From Bag) 8 units IV ONE ONE Stop: 12/08/23 13:31 Last Admin: 12/08/23 13:39 Dose: 8 units Documented By: MMG Co-signed By: Imaging Data Radiologist's Impression: Chest X-Ray 12/08/23 11:42 SINGLE VIEW CHEST CLINICAL HISTORY: Generalized weakness. FINDINGS: 2 AP, portable, upright chest radiographs are compared to study dated 09/11/2023. The cardiomediastinal silhouette is unremarkable noting atherosclerotic calcification of the thoracic aorta. There is chronic elevation of the left hemidiaphragm. There are mild airspace opacities in the right mid to lower lung as well as at the left lung base. No large pleural effusion or pneumothorax is seen. The skeletal structures are osteopenic. There are chronic/healed right-sided rib fractures. Degenerative change is noted in the shoulders and spine. IMPRESSION: There are mild airspace opacities in the right mid to lower lung as well as at the left lung base. Correlate clinically for evidence of a mild pneumonitis. Radiographic follow-up to resolution is recommended. ACT 112: Negative or not required by law. Electronically signed by: Sina Kemp M.D. 12/08/2023 12:10 PM Discharge Plan Visit Data Chief Complaint: Hyperglycemia ED Provider: Shaggy Johnston Discharge Problem: DKA (diabetic ketoacidosis), Pneumonia, COVID-19, High anion gap metabolic acidosis Patient Disposition: Admitted As Inpatient Discharge Instructions Interventions: ED Discharge Assessment Last Done: 12/08/23 16:53 Discharge Problem: DKA (diabetic ketoacidosis) Qualifiers: Diabetes mellitus type: type 1 Diabetes mellitus complication detail: without coma Qualified Code(s): E10.10 - Type 1 diabetes mellitus with ketoacidosis without coma Pneumonia Qualifiers: Pneumonia type: due to unspecified organism Laterality: bilateral Lung location: lower lobe of lung Qualified Code(s): J18.9 - Pneumonia, unspecified organism
[2023-12-08 12:00] LABS: Basophils # (auto) 0.02 K/uL (0.00-0.20); Basophils % (auto) 0.2 %; Eosinophils # (auto) 0.02 K/uL (0.00-0.50); Eosinophils % (auto) 0.2 %; Hematocrit (blood only) 42.7 % (42.0-52.0); Hemoglobin 15.1 g/dl (14.0-18.0); Immature Granulocytes # (auto) 0.11 K/uL (0.01-0.20); Immature Granulocytes % (auto) 0.9 %; Lymphocytes # (auto) 1.49 K/uL (1.20-3.40); Lymphocytes % (auto) 11.6 %; Mean Corpuscular Hemoglobin 34.1 pg (25.0-34.0); Mean Corpuscular Hgb Conc 35.4 g/dL (32.0-36.0); Mean Corpuscular Volume 96.4 fL (80.0-100.0); Monocytes # (auto) 1.16 K/uL (0.11-0.59); Neutrophils # (auto) 10.03 K/uL (1.40-6.50); Neutrophils % (auto) 78.1 %; Platelet Count 331 K/uL (130-400); RDW Coefficient of Variation 13.2 % (11.5-14.5); RDW Standard Deviation 47.6 fL (36.4-46.3); Red Blood Count 4.43 M/uL (4.70-6.10); White Blood Count 12.83 K/ul (4.8-10.8)
--- NOTE | 2023-12-08 12:11 | XRay Report ---
SINGLE VIEW CHEST CLINICAL HISTORY: Generalized weakness. FINDINGS: 2 AP, portable, upright chest radiographs are compared to study dated 09/11/2023. The cardi omediastinal silhouette is unremarkable noting atherosclerotic calcification of the thoracic aorta. T here is chronic elevation of the left hemidiaphragm. There are mild airspace opacities in the right m id to lower lung as well as at the left lung base. No large pleural effusion or pneumothorax is seen. The skeletal structures are osteopenic. There are chronic/healed right-sided rib fractures. Degenera tive change is noted in the shoulders and spine. IMPRESSION: There are mild airspace opacities in the right mid to lower lung as well as at the left l danni base. Correlate clinically for evidence of a mild pneumonitis. Radiographic follow-up to resoluti on is recommended. ACT 112: Negative or not required by law. Electronically signed by: Sina Kemp M.D. 12/08/2023 12:10 PM
[2023-12-08 12:17] LABS: Albumin Level 4.4 gm/dl (3.4-5.0); Bilirubin,Total 0.9 mg/dl (0.2-1.0); Calcium 9.5 mg/dl (8.6-10.3); Magnesium 2.2 mg/dl (1.7-2.4); Potassium 4.3 mmol/L (3.5-5.1)
[2023-12-08 12:26] LABS: Albumin Globulin Ratio 1.4 (0.9-2); Creatinine Clr Calc Pharmacy 33.7 ml/min; Est GFR (African American) 85.6 ml/min; Est GFR (Non-African American) 73.8 ml/min; Globulin 3.2 gm/dl (2.5-4.0); Total Protein 7.6 gm/dl (6.0-8.3)
[2023-12-08] MEDS: SODIUM CHLORIDE 0.9% 1,000 ML IV SCH (12:31)
[2023-12-08 12:36] LABS: Thyroid Stimulating Hormone 2.883 uIu/ml (0.300-4.500)
[2023-12-08 13:02] LABS: Appearance Urine Clear (Clear); Bilirubin Urine Negative (Negative); Blood Urine Negative (Negative); Color Urine Yellow; Glucose Urine UA 3+ (Negative); Ketones Urine 4+ (Negative); Leukocyte Esterase Urine Negative (Negative); Nitrite Urine Negative (Negative); Protein Urine Negative (Negative); Specific Gravity Urine 1.037 (1.000-1.030); Urobilinogen Urine Negative (Negative)
[2023-12-08] MEDS: SODIUM CHLOR 0.45% + 20MEQ KCL 20 MEQ/1,000 ML BAG IV SCH (13:38)
[2023-12-08] MEDS: SODIUM CHLORIDE 0.9% 1,000 ML IV ONE (13:38)
[2023-12-08] MEDS: INSULIN REGULAR 250 UNITS in SODIUM CHLORIDE 0.9% 247.5 ML IV SCH (13:39)
[2023-12-08] MEDS: NovoLIN-R BOLUS FROM BAG IV ONE (13:39)
[2023-12-08 13:47] LABS: Base Excess VBG -10.6 mEq/L; HCO3 VBG 16 mmol/L; Oxygen Saturation VBG 78.4 %; PCO2 VBG 36 mmHg (38-50); PO2 VBG 49 mmHg; pH VBG 7.25 (7.36-7.41)
[2023-12-08 13:50] LABS: Adenovirus PCR Not Detected (NotDetected); Bordetella parapertussis PCR Not Detected (NotDetected); Bordetella pertussis PCR Not Detected (NotDetected); Chlamydia pneumoniae PCR Not Detected (NotDetected); Coronavirus 229E PCR Not Detected (NotDetected); Coronavirus CoV-2 (COVID19)PCR DETECTED (NotDetected); Coronavirus HKU1 PCR Not Detected (NotDetected); Coronavirus NL63 PCR Not Detected (NotDetected); Coronavirus OC43PCR Not Detected (NotDetected); Human Metapneumovirus PCR Not Detected (NotDetected); Influenza A PCR Not Detected (NotDetected); Influenza B PCR Not Detected (NotDetected); Mycoplasma pneumoniae PCR Not Detected (NotDetected); Parainfluenza Virus 1 PCR Not Detected (NotDetected); Parainfluenza Virus 2 PCR Not Detected (NotDetected); Parainfluenza Virus 3 PCR Not Detected (NotDetected); Parainfluenza Virus 4 PCR Not Detected (NotDetected); Respiratory Syncytial VirusPCR Not Detected (NotDetected); Rhinovirus/Enterovirus PCR Not Detected (NotDetected)
--- NOTE | 2023-12-08 14:02 | Electrocardiogram Report ---
Test Reason : Blood Pressure : / mmHG Vent. Rate : 112 BPM Atrial Rate : 112 BPM P-R Int : 186 ms QRS Dur : 088 ms QT Int : 322 ms P-R-T Axes : 058 -17 067 degrees QTc Int : 439 ms Sinus tachycardia Low voltage QRS Inferior infarct , age undetermined Poor R wave progression, consider anterior VT vs. lead placement vs. LVH Abnormal ECG When compared with ECG of 11-SEP-2023 12:24, Minimal criteria for Anterior infarct are now Present Inferior infarct is now Present Confirmed by Petr Ramírez ([id number]) on 12/08/2023 2:02:01 PM Referred By: REFERRED SELF Confirmed By:Petr Ramírez
--- NOTE | 2023-12-08 14:09 | History & Physical Report ---
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 Metabolic encephalopathy Metabolic acidosis Diabetic ketoacidosis Admit to PCU He is an insulin-dependent type 1 diabetic, last A1c in August was 8.1 According to staff he had only been taking 16 units of Humalog 3 times a day, for some reason his long-acting insulin has dropped off his MAR and for an unknown duration Suspect DKA in setting of possible underlying infection as well as not taking long-acting insulin He was started on insulin drip appropriately in ED Continue IV fluid 1/2NS + 20kcl until reach goal range of 150-250 Once goal range is met will switch to incorporate D5 q4 labs with vbg, bmp, mag, phos A1C in a.m. Consult glycemic pharmacy Given his age will reduce rate of IVF obtain echocardiogram as we do not have a baseline for volume management Keep NPO until Gap closes Lactic Acidosis 2/2 above will bolus additional 500ml IVF follow repeat Sepsis Pneumonia In ED he met criteria for sepsis in setting of leukocytosis, tachycardia and evidence of pneumonia on imaging -- Chest x-ray reveals mild airspace opacities in right mid to lower lung as well as left lung base He did test positive for SARS-CoV-2 According to outpatient epic he was treated with Paxlovid in October for positive COVID, suspect COVID-19 is not active MRSA swab pending Empirically treat with IV Zosyn Blood cultures obtained Procalcitonin ordered Possible aspiration, will consult speech therapy SARS COV-2 pt treated for covid in october, suspect residual positive he has no true sx and does not meet criteria for sepsis EPIC encounter noted treatment 10/31/23 covid precautions as I do not have a test to prove proof of infection HTN Chronic, stable BP elevated in ED On atenolol, benazepril, diltiazem Monitor HLD Chronic, stable Continue statin Diabetic neuropathy Hold gabapentin in setting of encephalopathy, resume as soon as able Continue amitriptyline DVT prophylaxis: Subcu heparin Full code PCP: Ilana Escobar Dispo: admit to PCU, pt resides at [facility], may need rehab Pt was seen and examined in collaboration with Dr. Camp, please see addendum A total of 76 minutes was spent coordinating, documenting, and providing care for this patient excluding time spent in the performance of separately billed services. This included personally viewing all current laboratories and imaging studies, medication reconciliation, outpatient chart review, and discussion with specialists. 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 He currently resides at [facility] living at [facility]. He lives by himself and manages his own medication. He was sent over to ED today due to his blood glucose monitor reading as high. It is also reported that staff that he had been more confused in the last couple of days. Due to his underlying aphasia he can be difficult to understand, but staff still felt he was more confused. History mostly obtained from ED provider and nurse due to underlying confusion and patient. Staff also noted at [facility] that he was diaphoretic upon sending to ED. In ED patient was hypertensive and tachycardic. Lab work noted patient to be in DKA with elevated blood glucose of 431, anion gap 20, bicarb 16 and ketone and glucosuria. He did have a mild elevated white blood cell count at 12,000. His respiratory bio fire was significant for SARS-CoV-2; however, [facility] he was treated with Paxlovid in October for COVID. Chest x-ray concerning for right mid and lower lung airspace opacities. In ED he received IV fluids. He was started on insulin drip. He also received IV Zosyn after blood cultures were obtained. According to staff over at [facility] pt had only been taking novolog and that he had no longer been taking his long acting insulin. They said it, "fell off his MAR." [facility] Chart Reviewed Unable to obtain Social and surgical hx due to confusion. Allergies Allergy/AdvReac Type Severity Reaction Status Date / Time terbinafine [From Lamisil] Allergy Intermediate Rash Unverified 09/11/23 17:29 Home Medications Medication Instructions Recorded Confirmed Type amitriptyline 50 mg tablet 50 mg PO DAILY 09/11/23 12/08/23 History atenolol 25 mg tablet 25 mg PO DAILY 09/11/23 12/08/23 History atorvastatin 40 mg tablet 40 mg PO DAILY 09/11/23 12/08/23 History benazepril 10 mg tablet 10 mg PO DAILY 09/11/23 12/08/23 History diltiazem HCl 120 mg 120 mg PO DAILY 09/11/23 12/08/23 History capsule,extended release 24 hr docusate sodium 100 mg tablet 100 mg PO BID 09/11/23 12/08/23 History gabapentin 800 mg tablet 800 mg PO TID 09/11/23 12/08/23 History insulin lispro 100 unit/mL 16 unit subcut UD 09/11/23 12/08/23 History subcutaneous pen (Humalog KwikPen (U-100) Insulin) mirabegron 50 mg tablet,extended 50 mg PO DAILY 09/11/23 12/08/23 History release 24 hr (Myrbetriq) polyethylene glycol 3350 17 gram 17 g PO DAILY 09/11/23 12/08/23 History oral powder packet (Miralax) Glucagon Emergency Kit 1 mg subcut UD PRN Hypoglycemia 12/08/23 12/08/23 History Past Med/Surg History Medical History Hyperlipidemia Hypertension History of stroke with residual deficit Hemorrhagic cerebrovascular accident (CVA) Social History (Updated 12/08/23 @ 14:35 by Devika Llanos PA-C) Smoking Status: Never smoker Tobacco Type: Cigarettes Second Hand Exposure: No; Do You Dip or Chew Tobacco: No; Hx Substance Use: No Preferred Language: Zimbabwean Communication Ability: Impaired Communication Ability Comment: aphasia, confusion Oyster Unloader Required: No Beliefs That Will Affect Care: Yarsani Yarsani Beliefs: Synagogue. marital status: / Current Living Situation: Personal Care Facility Current Living Situation Comment: [facility] Feels Safe at Home: Yes Assistive Devices: Brace/Splint/Immobilizer and Cane Review of Systems Review of Systems: Unobtainable due to cognitive status Physical Exam Physical Exam: Constitutional: Elderly, M, confused, vitals as above, NAD, sitting up in bed Head: Normocephalic, Atraumatic Eyes: PERRL, conjunctivae normal, anicteric sclerae ENMT: external ear and nose normal, oropharynx normal Neck: trachea midline, no thyromegaly normal visual inspection Respiratory: normal respiratory effort, lungs clear to auscultation, no wheeze, rales, rhonchi. Normal insp/exp effort, no accessory muscle use Cardiovascular: tachycardic rate, reg rhythm, no murmur, no edema Vessels: no JVD or carotid bruit Chest: normal inspection of chest Abdomen: normal bowel sounds, soft, nontender, no hepatosplenomegaly Musculoskeletal: no cyanosis or clubbing, RHP, R foot drop with RLE brace Skin: no rashes, warm and dry normal turgor Neurologic: PERRL, EOMI, accommodation nl, no face palsy, no dysarthria CN's II-XI intact bilaterally and moves all extremities Psychiatric: Alert to self only, euthymic affect Lymphatic: no cervical or axillary lymphadenopathy : deferred Results & Data Results & Data Vital Signs (Past 12 Hours) Vital Signs Temp Pulse Pulse Resp BP BP Pulse Ox 12/08/23 13:00 114 H 22 162/96 H 96 12/08/23 12:12 108 H 22 96 12/08/23 11:24 105 H 22 139/70 96 12/08/23 11:24 36.8 C 110 H 18 139/70 95 12/08/23 11:16 115 H O2 Del Method 12/08/23 13:00 Room Air 12/08/23 12:12 Room Air 12/08/23 11:24 Room Air 12/08/23 11:24 Room Air 12/08/23 11:16 Laboratory Results I have independently reviewed and interpreted patient's admitting labs including CBC, CMP, VBG, mag, serum osm SARS COV2 + Diagnostic Findings Chest X-Ray 12/08/23 11:42 SINGLE VIEW CHEST CLINICAL HISTORY: Generalized weakness. FINDINGS: 2 AP, portable, upright chest radiographs are compared to study dated 09/11/2023. The cardiomediastinal silhouette is unremarkable noting atherosclerotic calcification of the thoracic aorta. There is chronic elevation of the left hemidiaphragm. There are mild airspace opacities in the right mid to lower lung as well as at the left lung base. No large pleural effusion or pneumothorax is seen. The skeletal structures are osteopenic. There are chroni c/healed right-sided rib fractures. Degenerative change is noted in the shoulders and spine. IMPRESSION: There are mild airspace opacities in the right mid to lower lung as well as at the left lung base. Correlate clinically for evidence of a mild pneumonitis. Radiographic follow-up to resolution is recommended. ACT 112: Negative or not required by law. Electronically signed by: Sina Kemp M.D. 12/08/2023 12:10 PM Medications Administered Medication List Insulin Human Regular 250 (units/ Sodium Chloride) 250 mls @ 8 mls/hr IV .Q24H ISABEL; Protocol Stop: 01/07/24 13:14 Last Admin: 12/08/23 13:39 Dose: 8 units/hr, 8 mls/hr Documented By: JARRETT Co-signed By: EDGAR Sodium Chloride (Nss) 1,000 mls @ 999 mls/hr IV .Q1H1M ONE Stop: 12/08/23 14:11 Last Admin: 12/08/23 13:38 Dose: 999 mls/hr Documented By: JARRETT Potassium Chloride/Sodium Chloride (1/2 Nss + 20meq Kcl 1000ml) 20 meq in 1,000 mls @ 250 mls/hr IV .Q4H ISABEL Stop: 01/07/24 13:14 Last Admin: 12/08/23 13:38 Dose: 250 mls/hr Documented By: JARRETT Discontinued Medications Sodium Chloride (Nss) 1,000 mls @ 999 mls/hr IV .Q1H1M ISABEL Stop: 12/08/23 12:45 Last Infusion: 12/08/23 13:44 Dose: Infused Documented By: Admin: 12/08/23 12:31 Dose: 999 mls/hr Documented By: JARRETT Insulin Human Regular (Novolin-R Bolus From Bag) 8 units IV ONE ONE Stop: 12/08/23 13:31 Last Admin: 12/08/23 13:39 Dose: 8 units Documented By: JARRETT Co-signed By: EDGAR ECG Additional Comments: I have independently reviewed and interpreted patient's admitting EKG which revealed: 112 ST, no St or t wave change COVID-19 Results Results COVID-19 Adm Lab Results: RBC 4.43 M/uL (4.70-6.10) L 12/08/23 WBC 12.83 K/ul (4.8-10.8) H 12/08/23 Hgb 15.1 g/dl (14.0-18.0) 12/08/23 Hct 42.7 % (42.0-52.0) 12/08/23 Plt Count 331 K/uL (130-400) 12/08/23 Neutrophils (%) (Auto) 78.1 % 12/08/23 Lymphocytes (%) (Auto) 11.6 % 12/08/23 Monocytes # (Auto) 1.16 K/uL (0.11-0.59) H 12/08/23 Eosinophils # (Auto) 0.02 K/uL (0.00-0.50) 12/08/23 Immature Granulocyte % (Auto) 0.9 % 12/08/23 Neutrophils # (Auto) 10.03 K/uL (1.40-6.50) H 12/08/23 Lymphocytes # (Auto) 1.49 K/uL (1.20-3.40) 12/08/23 Monocytes # (Auto) 1.16 K/uL (0.11-0.59) H 12/08/23 Eosinophils # (Auto) 0.02 K/uL (0.00-0.50) 12/08/23 Basophils # (Auto) 0.02 K/uL (0.00-0.20) 12/08/23 Immature Granulocyte # (Auto) 0.11 K/uL (0.01-0.20) 4 Na 133 mmol/L (136-145) L 12/08/23 K 4.1 mmol/L (3.5-5.1) 12/08/23 Cl 102 mmol/L (98-107) 12/08/23 CO2 17 mmol/L (21-32) L 12/08/23 Anion Gap 14 (3-11) H 12/08/23 BUN 27 mg/dl (6-23) H 12/08/23 Creatinine 0.87 mg/dl (0.6-1.4) 12/08/23 BUN/Creatinine Ratio 31.0 (10-20) H 12/08/23 Glucose Level 314 mg/dl (70-99(Fasting)) H* 12/08/23 Ca 8.9 mg/dl (8.6-10.3) 12/08/23 Phosphorus Level 2.7 mg/dl (2.5-4.9) 12/08/23 Total Bilirubin 0.9 mg/dl (0.2-1.0) 12/08/23 AST/SGOT 15 U/L (13-39) 12/08/23 ALT/SGPT 16 U/L (7-52) 12/08/23 Alkaline Phosphatase 128 U/L (34-104) H 12/08/23 Total Protein 7.6 gm/dl (6.0-8.3) 12/08/23 Albumin 4.4 gm/dl (3.4-5.0) 12/08/23 Globulin 3.2 gm/dl (2.5-4.0) 12/08/23 Albumin/Globulin Ratio 1.4 (0.9-2) 12/08/23 Procalcitonin 0.67 ng/ml (0-0.5) H 12/08/23 Adenovirus (PCR) Not Detected (NotDetected) 12/08/23 B. parapertussis DNA (PCR) Not Detected (NotDetected) 11/11 05/05 B. pertussis DNA (PCR) Not Detected (NotDetected) 12/08/23 C. pneumoniae DNA (PCR) Not Detected (NotDetected) 4 Coronavirus Type OC43 (PCR) Not Detected (NotDetected) Coronavirus Type HKU1 (PCR) Not Detected (NotDetected) Coronavirus Type 229E (PCR) Not Detected (NotDetected) COVID-19 PCR DETECTED (NotDetected) A 12/08/23 Coronavirus Type NL63 (PCR) Not Detected (NotDetected) Human Metapneumovirus (PCR) Not Detected (NotDetected) Influenza Virus Type A (PCR) Not Detected (NotDetected) Influenza Virus Type B (PCR) Not Detected (NotDetected) M. pneumoniae (PCR) Not Detected (NotDetected) 12/08/23 Parainfluenza Type 1 (PCR) Not Detected (NotDetected) 11/11 05/05 Parainfluenza Type 2 (PCR) Not Detected (NotDetected) 11/11 05/05 Parainfluenza Type 3 (PCR) Not Detected (NotDetected) 11/11 05/05 Parainfluenza Type 4 (PCR) Not Detected (NotDetected) 11/11 05/05 RSV (PCR) Not Detected (NotDetected) 12/08/23 Enterovirus/Rhinovirus (PCR) Not Detected (NotDetected) Chest X-Ray 12/08/23 Code Status & VTE Plan Code Status FULL CODE VTE Prophylaxis Plan VTE Prophylaxis will be ordered: Yes Supervising Physician Co-Signing Physician Notes Attending addendum: The patient was seen and examined in emergency room. He was brought in from personal detention with very high blood sugar and change in mental status Noted to have DKA and pneumonia He has not been using his long-acting insulin for a while and blood sugar remains elevated Remains pleasantly confused with tachycardia but otherwise hemodynamically stable Has been feeling little better since admission On examination Lying in bed without any acute distress Tachycardia of 107 otherwise vital signs stable Chest-clear to auscultate bilaterally Heart-S1-S2, regular Abdomen-benign Extremities-negative for any edema MANAGER SPEECH-alert and awake. Pleasantly confused. Right hemiplegia. His admission labs, EKG and imaging studies reviewed Has DKA with pneumonia Has been started on antibiotic and intravenous insulin with fluid replacement Agree with assessment and plan as outlined above by Oly Camp
[2023-12-08] MEDS: PIPERACILLIN/TAZOBACTAM 4.5 GM in DEXTROSE 5% MINI-B 100 ML IV ONE (14:40)
[2023-12-08 15:14] LABS: Calcium 8.9 mg/dl (8.6-10.3); Magnesium 2.1 mg/dl (1.7-2.4); Potassium 4.1 mmol/L (3.5-5.1)
[2023-12-08] MEDS: SODIUM CHLORIDE 0.9% 500 ML IV ONE (15:38)
[2023-12-08 15:44] LABS: Creatinine Clr Calc Pharmacy 76.9 ml/min; Est GFR (African American) 98.5 ml/min; Phosphorus 2.7 mg/dl (2.5-4.9)
[2023-12-08] MEDS ORDERED: ALUMINUM/MAGNESIUM SUSP 30 ML UDC PO PRN (17:37)
[2023-12-08] MEDS ORDERED: GLUCAGON FOR INJ 1 MG VIAL SQ PRN (17:37)
[2023-12-08] MEDS ORDERED: PENDING D5 1/2NS+20mEq KCL IVF SCH (17:37)
[2023-12-08] MEDS ORDERED: POLYETHYLENE (MIRALAX) 17 GM PACK PO PRN (17:37)
[2023-12-08] MEDS ORDERED: ACETAMINOPHEN 325 MG TAB PO PRN (17:37)
[2023-12-08] MEDS ORDERED: PHARMACY GLYCEMIC MGMT CONSULT PRN (17:37)
[2023-12-08] MEDS ORDERED: GLUCOSE 40% GEL 15 GM TUBE PO PRN (17:37)
[2023-12-08] MEDS ORDERED: GLUCOSE 10 TAB/TUBE PO PRN (17:37)
[2023-12-08] MEDS ORDERED: DOCUSATE SODIUM 100 MG CAP PO PRN (17:37)
[2023-12-08] MEDS ORDERED: ONDANSETRON INJ 2 MG/ML 2 ML VIAL IV PRN (17:37)
[2023-12-08] MEDS ORDERED: CARBOHYDRATES FOR HYPOGLYCEMIA PO PRN (17:37)
[2023-12-08] MEDS: STAT IV Infusion **Titration per Protocol STA (18:19)
[2023-12-08] MEDS: DKA GOAL RANGE 150-250 mg/dl ONE (18:19)
[2023-12-08] MEDS: INSULIN ASPART PER UNIT CHARGE SC SCH (18:19)
[2023-12-08] MEDS: D5W AND 1/2NSS + 20MEQ KCL 20 MEQ/1,000 ML BAG IV SCH (18:31)
[2023-12-08] MEDS: PIPERACILLIN/TAZOBACTAM 4.5 GM in DEXTROSE 5% MINI-B 100 ML IV SCH (20:27)
[2023-12-08 20:36] LABS: Calcium 8.8 mg/dl (8.6-10.3); Magnesium 2.1 mg/dl (1.7-2.4); Potassium 4.2 mmol/L (3.5-5.1)
[2023-12-08 20:42] LABS: BUN Creatinine Ratio 31.6 (10-20); Creatinine Clr Calc Pharmacy 84.7 ml/min; Est GFR (African American) 102.5 ml/min; Est GFR (Non-African American) 88.5 ml/min; Phosphorus 2.1 mg/dl (2.5-4.9)
[2023-12-08] MEDS: DEXTROSE 50% 50 ML SYRINGE IV PRN (21:10)
[2023-12-08] MEDS: HEPARIN SOD 5,000 UNIT/0.5 ML VIAL SQ SCH (21:15)
[2023-12-08] MEDS: GABAPENTIN 800 MG TAB PO SCH (21:15)
[2023-12-08 23:20] LABS: Calcium 8.7 mg/dl (8.6-10.3); Magnesium 2.1 mg/dl (1.7-2.4)
[2023-12-08 23:26] LABS: BUN Creatinine Ratio 32.5 (10-20); Creatinine Clr Calc Pharmacy 86.9 ml/min; Est GFR (African American) 103.6 ml/min; Est GFR (Non-African American) 89.4 ml/min
[2023-12-08] MEDS ORDERED: SODIUM PHOSPHATE 3 MMOL/1 ML INFUSION IV STA (23:42)
[2023-12-09] MEDS: SODIUM PHOSPHATE 15 MMOL in SODIUM CHLORIDE 0.9% 250 ML IV ONE (00:49)
[2023-12-09 03:51] LABS: Basophils # (auto) 0.04 K/uL (0.00-0.20); Basophils % (auto) 0.4 %; Eosinophils # (auto) 0.12 K/uL (0.00-0.50); Eosinophils % (auto) 1.3 %; Hematocrit (blood only) 36.2 % (42.0-52.0); Hemoglobin 12.3 g/dl (14.0-18.0); Immature Granulocytes # (auto) 0.05 K/uL (0.01-0.20); Immature Granulocytes % (auto) 0.6 %; Lymphocytes # (auto) 2.29 K/uL (1.20-3.40); Lymphocytes % (auto) 25.4 %; Mean Corpuscular Hemoglobin 33.3 pg (25.0-34.0); Mean Corpuscular Volume 98.1 fL (80.0-100.0); Mean Platelet Volume 8.7 fL (9.4-12.4); Monocytes # (auto) 0.92 K/uL (0.11-0.59); Monocytes % (auto) 10.2 %; Neutrophils # (auto) 5.58 K/uL (1.40-6.50); Neutrophils % (auto) 62.1 %; Platelet Count 239 K/uL (130-400); RDW Coefficient of Variation 13.4 % (11.5-14.5); RDW Standard Deviation 47.6 fL (36.4-46.3); Red Blood Count 3.69 M/uL (4.70-6.10)
[2023-12-09 04:08] LABS: BUN Creatinine Ratio 33.8 (10-20); Calcium 8.1 mg/dl (8.6-10.3); Creatinine Clr Calc Pharmacy 98.4 ml/min; Est GFR (Non-African American) 94.1 ml/min; Magnesium 1.9 mg/dl (1.7-2.4); Phosphorus 3.2 mg/dl (2.5-4.9); Potassium 3.8 mmol/L (3.5-5.1)
[2023-12-09 04:09] LABS: Albumin Globulin Ratio 1.5 (0.9-2); Albumin Level 3.3 gm/dl (3.4-5.0); BUN Creatinine Ratio 32.3 (10-20); Bilirubin,Total 0.7 mg/dl (0.2-1.0); Calcium 8.1 mg/dl (8.6-10.3); Creatinine Clr Calc Pharmacy 102.9 ml/min; Est GFR (African American) 111.1 ml/min; Est GFR (Non-African American) 95.8 ml/min; Globulin 2.2 gm/dl (2.5-4.0); Magnesium 1.9 mg/dl (1.7-2.4); Potassium 3.8 mmol/L (3.5-5.1); Total Protein 5.5 gm/dl (6.0-8.3)
[2023-12-09 07:05] LABS: Estimated Average Glucose 194 mg/dl; Hemoglobin A1C 8.4 % (4.5-5.6)
[2023-12-09 07:51] LABS: BUN Creatinine Ratio 31.7 (10-20); Calcium 8.3 mg/dl (8.6-10.3); Creatinine Clr Calc Pharmacy 106.2 ml/min; Est GFR (African American) 112.5 ml/min; Est GFR (Non-African American) 97.1 ml/min; Phosphorus 2.6 mg/dl (2.5-4.9); Potassium 3.8 mmol/L (3.5-5.1)
[2023-12-09] MEDS: LANTUS PER UNIT CHARGE SC STA ×2 (08:17→12:55)
[2023-12-09] MEDS: ATORVASTATIN 40 MG TAB PO SCH (08:24)
[2023-12-09] MEDS: dilTIAZem HCL 120 MG CAPCR PO SCH (08:24)
[2023-12-09] MEDS: AMITRIPTYLINE HCL 50 MG TAB PO SCH (08:24)
[2023-12-09] MEDS: ATENOLOL 25 MG TABLET PO SCH (08:24)
[2023-12-09] MEDS: ENALAPRIL MALEATE 10 MG TAB PO SCH (08:25)
[2023-12-09] MEDS: VIBEGRON 75 MG TAB PO SCH (08:25)
--- NOTE | 2023-12-09 10:34 | Pharmacy Report ---
Pharmacy Glycemic Short Note 2 - Date of Service December 09, 2023 - Glycemic Short BSG Results (Last 24 hours): 12/08/23 12/08/23 12/08/23 11:17 11:21 14:28 Glucose 432 H* POC Glucose 431 H* 337 H* 12/08/23 12/08/23 12/08/23 14:37 15:27 16:29 Glucose 314 H* POC Glucose 253 H 199 H 12/08/23 12/08/23 12/08/23 18:06 19:00 19:53 Glucose 170 H POC Glucose 201 H 224 H 12/08/23 12/08/23 12/08/23 20:01 20:57 21:30 Glucose POC Glucose 355 H* 114 H 213 H 12/08/23 12/08/23 12/08/23 22:34 22:47 23:33 Glucose 182 H POC Glucose 191 H 166 H 12/09/23 12/09/23 12/09/23 00:43 02:48 03:28 Glucose POC Glucose 199 H 357 H* 192 H 12/09/23 12/09/23 12/09/23 03:29 03:29 04:31 Glucose 201 H 202 H POC Glucose 201 H 12/09/23 12/09/23 12/09/23 05:31 06:59 07:10 Glucose 218 H POC Glucose 192 H 187 H 12/09/23 08:55 Glucose POC Glucose 233 H OUTPATIENT ANTIDIABETIC REGIMEN: * Lantus 21 units SC HS * Humalog 16 units SC AC * HbA1c: 8.4% (12/09/23) ASSESSMENT: * 73 yo M admitted on 12/08/23 secondary to DKA. Pharmacy has been consulted to assist with inpatient glycemic management. Patient is a Type 1 diabetic as an outpatient. Please refer to outpatient regimen and most recent HbA1c above. * Upon presentation, patient's labs were as follows: K=4.3, Anion Gap=20, CO2=16, SCr=1.0, HGF=079, pH=7.25. Patient was made NPO and started on an insulin drip at 8 units/hr with an initial bolus dose of 8 units. D5 1/2 NS + 20 K+ has been running since yesterday afternoon at 150 mL/hr. * Patient remained NPO and continues on the insulin drip into this morning. Received 55 units from the drip over night. BSGs did trend down: [phone] mg/dL. * BSG was back up to 233 mg/dL this AM. Remains on D5 1/2NS + 20 K+ at 150 mL/hr. Insulin drip running at 1.3 units/hr. Labs this morning showed closure of anion gap and resolution of acidosis: K=3.8, Anion Gap=6, CO2=20, SCr=0.63, XIY=148, pH=7.34. * Spoke with RN who believes patient can tolerate a diet this morning. Already gave 10 units of basal around 0815. Provider okay with discontinuation of insulin drip and fluid with transition to subcutaneous insulin. May give another basal dose at lunchtime if patient is tolerating diet. Bolus regimen will be started at lunchtime. PLAN FOR INPATIENT GLYCEMIC CONTROL: * Discontinue insulin drip * Basal insulin * Lantus 10 units SC x 1 this AM * Lantus 10 units SC x 1 with lunch * Reassess basal needs in AM * Bolus insulin * NovoLog per scale ACHS or Q6hrs while NPO * Goal Range: Low 110 mg/dL - High 140 mg/dL * Correction Factor: 25 mg/dL/unit * Nutritional / Prandial insulin per carb ratio of 1 unit per 8 grams CHO consumed
[2023-12-09] MEDS: INSULIN ASPART PER UNIT CHARGE SC SCH (12:55)
--- NOTE | 2023-12-09 16:52 | Hospitalist Progress Note ---
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 Metabolic encephalopathy Metabolic acidosis Diabetic ketoacidosis He is an insulin-dependent type 1 diabetic, last A1c in August was 8.1 According to staff he had only been taking 16 units of Humalog 3 times a day, for some reason his long-acting insulin has dropped off his MAR and for an unknown duration Suspect DKA in setting of possible underlying infection as well as not taking long-acting insulin He was started on insulin drip appropriately in ED Continue IV fluid 1/2NS + 20kcl until reach goal range of 150-250 Once goal range is met will switch to incorporate D5 Consult glycemic pharmacy-appreciate input and recommendation Given his age will reduce rate of IVF Blood sugar has been stable and the IV insulin was changed to subcu Started with oral diet Clinically better and has been improving Lactic Acidosis 2/2 above will bolus additional 500ml IVF follow repeat- EYES: Pupils round equal and react to light, extraocular movements full, no injection. Sepsis Pneumonia In ED he met criteria for sepsis in setting of leukocytosis, tachycardia and evidence of pneumonia on imaging -- Chest x-ray reveals mild airspace opacities in right mid to lower lung as well as left lung base He did test positive for SARS-CoV-2 According to outpatient epic he was treated with Paxlovid in October for positive COVID, suspect COVID-19 is not active MRSA swab pending-negative Empirically treat with IV Zosyn Blood cultures obtained-negative so far Procalcitonin ordered-not significantly elevated Possible aspiration, will consult speech therapy Will continue with current antibiotic SARS COV-2 pt treated for covid in october, suspect residual positive he has no true sx and does not meet criteria for sepsis EPIC encounter noted treatment 10/31/23 covid precautions as I do not have a test to prove proof of infection No respiratory symptoms and has been saturating normally on room air Will not start any treatment for COVID-19 virus infection HTN Chronic, stable BP elevated in ED On atenolol, benazepril, diltiazem Monitor HLD Chronic, stable Continue statin Diabetic neuropathy Hold gabapentin in setting of encephalopathy, resume as soon as able Continue amitriptyline DVT prophylaxis: Subcu heparin Full code PCP: Ilana Escobar Dispo: admit to PCU, pt resides at [facility], may need rehab Will advise PT and OT evaluation Admission and Anticipated Discharge Date Admission Date: December 08, 2023 Subjective 12/09/2023 The patient was seen and examined in telemetry unit He has been stable and feels a little better Remains pleasantly confused No acute distress and denies any symptoms Review of Systems Review of Systems: All systems reviewed and are unremarkable except as noted below Physical Exam Physical Exam: Lying in bed without any acute distress Constitutional: well developed, well nourished, + ill appearing and + obese Eyes: PERRL, conjunctivae normal, anicteric sclerae ENMT: external ear and nose normal, oropharynx normal Neck: trachea midline, no thyromegaly Respiratory: no respiratory distress Auscultation: lungs clear to auscultation bilaterally Cardiovascular: Rate/Rhythm: regular rate and regular rhythm; not tachycardic Heart Sounds: normal S1 and normal S2; no murmur Extremities: no edema Gastrointestinal (Abdomen): Inspection/Auscultation: normal bowel sounds; abdomen not distended Percussion/Palpation: abdomen soft; abdomen nontender Musculoskeletal: Has right hemiplegia with right foot drop. No acute arthritis involving any of the joint Neurologic: Alert and awake. Pleasantly confused secondary to stroke with residual effect Lymphatic: no cervical or axillary lymphadenopathy Results & Data Results & Data Vital Signs (Past 12 Hours) Vital Signs Temp Pulse Resp BP Pulse Ox O2 Del Method 12/09/23 15:48 36.6 C 74 18 127/76 96 Room Air 12/09/23 15:16 36.7 C 72 18 120/76 95 Room Air 12/09/23 11:04 36.6 C 78 18 124/70 98 Room Air 12/09/23 07:55 36.7 C 97 H 19 132/78 100 Room Air Laboratory Results Short CBC 12/09/23 Range/Units 03: WBC 9.00 (4.8-10.8) K/ul Hgb 12.3 L (14.0-18.0) g/dl Hct 36.2 L (42.0-52.0) % Plt Count 239 (130-400) K/uL BMP 12/08/23 12/08/23 12/09/23 19:53 22:47 03:29 Sodium 136 135 L 133 L Potassium 4.2 4.0 Chloride 106 106 Carbon Dioxide 24 23 BUN 25 H 25 H Creatinine 0.79 0.77 Glucose 170 H 182 H Calcium 8.8 8.7 12/09/23 12/09/23 12/09/23 03:29 03:29 03:29 Sodium 134 L Potassium 3.8 3.8 Chloride 106 106 Carbon Dioxide 23 BUN Creatinine Glucose Calcium 12/09/23 12/09/23 12/09/23 03: 03: 03:29 Sodium Potassium Chloride Carbon Dioxide 23 BUN 21 23 Creatinine 0.65 0.68 Glucose 201 H Calcium 12/09/23 12/09/23 12/09/23 03:29 03:29 07:10 Sodium 134 L Potassium 3.8 Chloride 104 Carbon Dioxide 24 BUN 20 Creatinine 0.63 Glucose 202 H 218 H Calcium 8.1 L 8.1 L 8.3 L Liver Function 12/09/23 Range/Units 03:29 Total Bilirubin 0.7 (0.2-1.0) mg/dl AST 14 (13-39) U/L ALT 11 (7-52) U/L Alkaline Phosphatase 90 (34-104) U/L Albumin 3.3 L (3.4-5.0) gm/dl Medications Administered Current Inpatient Medications Acetaminophen (Acetaminophen 325 Mg Tab) 650 mg PO Q4H PRN PRN Reason: Pain or Fever Stop: 01/07/24 17:36 Al Hydrox/Mg Hydrox/Simethicone (Aluminum/Magnesium Susp 30 Ml Udc) 15 ml PO Q4H PRN PRN Reason: Dyspepsia Stop: 01/07/24 17:36 Amitriptyline HCl (Amitriptyline Hcl 50 Mg Tab) 50 mg PO DAILY [facility] Stop: 01/08/24 08:59 Last Admin: 12/09/23 08:24 Dose: 50 mg Atenolol (Atenolol 25 Mg Tablet) 25 mg PO DAILY [facility] Stop: 01/08/24 08:59 Last Admin: 12/09/23 08:24 Dose: 25 mg Atorvastatin Calcium (Atorvastatin 40 Mg Tab) 40 mg PO DAILY [facility] Stop: 01/08/24 08:59 Last Admin: 12/09/23 08:24 Dose: 40 mg Dextrose (Dextrose 50% 50 Ml Syringe) 25 - 50 ml IV UD PRN; Protocol PRN Reason: Hypoglycemia Protocol Stop: 01/07/24 17:36 Last Admin: 12/08/23 21:10 Dose: 50 ml Diltiazem HCl (Diltiazem Hcl 120 Mg Capcr) 120 mg PO DAILY [facility] Stop: 01/08/24 08:59 Last Admin: 12/09/23 08:24 Dose: 120 mg Docusate Sodium (Docusate Sodium 100 Mg Cap) 100 mg PO BID PRN PRN Reason: constipation Stop: 01/07/24 17:36 Enalapril Maleate (Enalapril Maleate 10 Mg Tab) 10 mg PO DAILY [facility] Stop: 01/08/24 08:59 Last Admin: 12/09/23 08:25 Dose: 10 mg Gabapentin (Gabapentin 800 Mg Tab) 800 mg PO TID [facility] Stop: 01/07/24 20:59 Last Admin: 12/09/23 13:04 Dose: 800 mg Glucagon (Glucagon For Inj 1 Mg Vial) 1 mg SQ UD PRN; Protocol PRN Reason: Hypoglycemia Protocol Stop: 01/07/24 17:36 Glucose (Glucose 10 Tab/Tube) 4 - 8 tab PO UD PRN; Protocol PRN Reason: Hypoglycemia Treatment Stop: 01/07/24 17:36 Glucose (Glucose 40% Gel 15 Gm Tube) 15 - 30 gm PO UD PRN; Protocol PRN Reason: Hypoglycemia Protocol Stop: 01/07/24 17:36 Heparin Sodium (Porcine) (Heparin Sod 5,000 Unit/0.5 Ml Vial) 5,000 units SQ Q8 [facility] Stop: 01/07/24 21:59 Last Admin: 12/09/23 13:04 Dose: 5,000 units Piperacillin Sod/Tazobactam (Sod 4.5 gm/ Dextrose) 100 mls @ 25 mls/hr IV Q8H [facility]; Protocol Stop: 12/15/23 19:59 Last Admin: 12/09/23 13:04 Dose: 25 mls/hr Insulin Aspart (Insulin Aspart Per Unit Charge) 0 units SC ACHS [facility]; Protocol Stop: 01/08/24 11:29 Last Admin: 12/09/23 12:55 Dose: 9 units Miscellaneous (Carbohydrates For Hypoglycemia ) 15 - 30 gm PO UD PRN PRN Reason: Hypoglycemia Protocol Stop: 01/07/24 17:36 Miscellaneous Information (Pharmacy Glycemic Mgmt Consult) 1 each N/A UD PRN PRN Reason: Consult Stop: 01/07/24 17:36 Ondansetron HCl (Ondansetron Inj 2 Mg/Ml 2 Ml Vial) 4 mg IV Q6H PRN PRN Reason: Nausea Stop: 01/07/24 17:36 Polyethylene Glycol (Polyethylene (Miralax) 17 Gm Pack) 17 gm PO DAILY PRN PRN Reason: Constipation Stop: 01/07/24 17:36 Vibegron (Vibegron 75 Mg Tab) 75 mg PO DAILY [facility] Stop: 01/08/24 08:59 Last Admin: 12/09/23 08:25 Dose: 75 mg (3) DKA (diabetic ketoacidosis) Diabetes mellitus complication detail: without coma Diabetes mellitus type: type 1 Qualified Code(s): E10.10 - Type 1 diabetes mellitus with ketoacidosis without coma (5) Pneumonia Laterality: bilateral Lung location: lower lobe of lung Pneumonia type: due to unspecified organism Qualified Code(s): J18.9 - Pneumonia, unspecified organism
[2023-12-10] MEDS: INSULIN ASPART PER UNIT CHARGE SC SCH (00:26)
[2023-12-10 08:09] LABS: Basophils # (auto) 0.03 K/uL (0.00-0.20); Basophils % (auto) 0.3 %; Eosinophils # (auto) 0.25 K/uL (0.00-0.50); Eosinophils % (auto) 2.8 %; Hematocrit (blood only) 41.8 % (42.0-52.0); Hemoglobin 14.4 g/dl (14.0-18.0); Immature Granulocytes # (auto) 0.05 K/uL (0.01-0.20); Immature Granulocytes % (auto) 0.6 %; Lymphocytes # (auto) 1.49 K/uL (1.20-3.40); Lymphocytes % (auto) 16.8 %; Mean Corpuscular Hemoglobin 33.1 pg (25.0-34.0); Mean Corpuscular Hgb Conc 34.4 g/dL (32.0-36.0); Mean Corpuscular Volume 96.1 fL (80.0-100.0); Mean Platelet Volume 8.7 fL (9.4-12.4); Monocytes # (auto) 0.93 K/uL (0.11-0.59); Monocytes % (auto) 10.5 %; Neutrophils # (auto) 6.11 K/uL (1.40-6.50); Platelet Count 223 K/uL (130-400); RDW Coefficient of Variation 13.2 % (11.5-14.5); RDW Standard Deviation 47.2 fL (36.4-46.3); Red Blood Count 4.35 M/uL (4.70-6.10); White Blood Count 8.86 K/ul (4.8-10.8)
[2023-12-10] MEDS: LANTUS PER UNIT CHARGE SC SCH (09:08)
--- NOTE | 2023-12-10 13:52 | Pharmacy Report ---
Pharmacy Glycemic Short Note 2 - Date of Service December 10, 2023 - Glycemic Short BSG Results (Last 24 hours): 12/09/23 12/09/23 12/10/23 16:17 21:21 00:19 POC Glucose 300 H 119 H 92 12/10/23 12/10/23 12/10/23 03:40 07:48 11:22 POC Glucose 132 H 216 H 230 H OUTPATIENT ANTIDIABETIC REGIMEN: * Lantus 21 units SC HS * Humalog 16 units SC AC HbA1c: 8.4% (12/09/23) ASSESSMENT: 12/10/23: * Blood sugars trended down nicely yesterday following insulin gtt transition * Will continue 20 units of basal/day, if fasting blood sugar continues to increase tomorrow, then will plan to increase basal * Will maintain carb ratio, but will loosen CF slightly given significant correction yesterday of blood sugar of 300 mg/dL * Originally had planned to give basal this evening to correlate with outpatient regimen, but given elevated blood sugar this morning and last basal dose yesterday morning, will give again this morning. Consider stepping back to HS over coming days. 12/09/23: * 73 yo M admitted on 12/08/23 secondary to DKA. Pharmacy has been consulted to assist with inpatient glycemic management. Patient is a Type 1 diabetic as an outpatient. Please refer to outpatient regimen and most recent HbA1c above. * Upon presentation, patient's labs were as follows: K=4.3, Anion Gap=20, CO2=16, SCr=1.0, NNF=910, pH=7.25. Patient was made NPO and started on an insulin drip at 8 units/hr with an initial bolus dose of 8 units. D5 1/2 NS + 20 K+ has been running since yesterday afternoon at 150 mL/hr. * Patient remained NPO and continues on the insulin drip into this morning. Received 55 units from the drip over night. BSGs did trend down: [id number] mg/dL. * BSG was back up to 233 mg/dL this AM. Remains on D5 1/2NS + 20 K+ at 150 mL/hr. Insulin drip running at 1.3 units/hr. Labs this morning showed closure of anion gap and resolution of acidosis: K=3.8, Anion Gap=6, CO2=20, SCr=0.63, JZI=823, pH=7.34. * Spoke with RN who believes patient can tolerate a diet this morning. Already gave 10 units of basal around 0815. Provider okay with discontinuation of insulin drip and fluid with transition to subcutaneous insulin. May give another basal dose at lunchtime if patient is tolerating diet. Bolus regimen will be started at lunchtime. PLAN FOR INPATIENT GLYCEMIC CONTROL: * Basal insulin * Lantus 20 units SC daily * Bolus insulin * NovoLog per scale ACHS or Q6hrs while NPO * Goal Range: Low 110 mg/dL - High 140 mg/dL * Correction Factor: 30 mg/dL/unit * Nutritional / Prandial insulin per carb ratio of 1 unit per 8 grams CHO consumed
--- NOTE | 2023-12-10 14:43 | Hospitalist Progress Note ---
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 Metabolic encephalopathy Metabolic acidosis Diabetic ketoacidosis He is an insulin-dependent type 1 diabetic, last A1c in August was 8.1 According to staff he had only been taking 16 units of Humalog 3 times a day, for some reason his long-acting insulin has dropped off his MAR and for an unknown duration Suspect DKA in setting of possible underlying infection as well as not taking long-acting insulin He was started on insulin drip appropriately in ED Continue IV fluid 1/2NS + 20kcl until reach goal range of 150-250 Once goal range is met will switch to incorporate D5 Consult glycemic pharmacy-appreciate input and recommendation Given his age will reduce rate of IVF Blood sugar has been stable and the IV insulin was changed to subcu Started with oral diet A lot better today and seems to be at his baseline Has been communicating almost normally and wants to go back to [facility] when appropriate Lactic Acidosis 2/2 above will bolus additional 500ml IVF follow repeat-lactic acid became normal on repeat examination Sepsis Pneumonia In ED he met criteria for sepsis in setting of leukocytosis, tachycardia and evidence of pneumonia on imaging -- Chest x-ray reveals mild airspace opacities in right mid to lower lung as well as left lung base He did test positive for SARS-CoV-2 According to outpatient epic he was treated with Paxlovid in October for positive COVID, suspect COVID-19 is not active MRSA swab pending-negative Empirically treat with IV Zosyn Blood cultures obtained-negative so far Procalcitonin ordered-not significantly elevated Possible aspiration, will consult speech therapy Will continue with current antibiotic No respiratory symptoms and will continue current antibiotic to finish the course SARS COV-2 pt treated for covid in october, suspect residual positive he has no true sx and does not meet criteria for sepsis EPIC encounter noted treatment 2/19/24 covid precautions as I do not have a test to prove proof of infection No respiratory symptoms and has been saturating normally on room air Will not start any treatment for COVID-19 virus infection No respiratory symptoms and has been saturating normally on room air HTN Chronic, stable BP elevated in ED On atenolol, benazepril, diltiazem Monitor HLD Chronic, stable Continue statin Diabetic neuropathy Hold gabapentin in setting of encephalopathy, resume as soon as able Continue amitriptyline DVT prophylaxis: Subcu heparin Full code PCP: Ilana Escobar Dispo: admit to PCU, pt resides at [facility], may need rehab Will advise PT and OT evaluation Admission and Anticipated Discharge Date Admission Date: December 08, 2023 Subjective 12/09/2023 The patient was seen and examined in telemetry unit He has been stable and feels a little better Remains pleasantly confused No acute distress and denies any symptoms 12/10/2023 The patient was seen and examined in telemetry unit He has been feeling much better and complicating almost normal Wants to go back to [facility] when appropriate Blood sugar seems to be improving and does not have any respiratory symptoms Review of Systems Review of Systems: All systems reviewed and are unremarkable except as noted below Physical Exam Physical Exam: Lying in bed without any acute distress Constitutional: well developed, well nourished, + ill appearing and + obese Eyes: PERRL, conjunctivae normal, anicteric sclerae ENMT: external ear and nose normal, oropharynx normal Neck: trachea midline, no thyromegaly Respiratory: no respiratory distress Auscultation: lungs clear to auscultation bilaterally Cardiovascular: Rate/Rhythm: regular rate and regular rhythm; not tachycardic Heart Sounds: normal S1 and normal S2; no murmur Extremities: no edema Gastrointestinal (Abdomen): Inspection/Auscultation: normal bowel sounds; abdomen not distended Percussion/Palpation: abdomen soft; abdomen nontender Musculoskeletal: No acute arthritis involving any of the joint Neurologic: Alert and awake. Right hemiaplasia. Minimal impairment with speech Lymphatic: no cervical or axillary lymphadenopathy Results & Data Results & Data Vital Signs (Past 12 Hours) Vital Signs Temp Pulse Pulse Resp BP Pulse Ox O2 Del Method 12/10/23 11:16 36.5 C 88 18 144/79 H 94 Room Air 12/10/23 08:00 89 12/10/23 07:48 37.0 C 82 18 144/81 H 94 Room Air 12/10/23 04:09 36.5 C 78 18 125/81 95 Room Air Laboratory Results Short CBC 12/10/23 Range/Units 07:22 WBC 8.86 (4.8-10.8) K/ul Hgb 14.4 (14.0-18.0) g/dl Hct 41.8 L (42.0-52.0) % Plt Count 223 (130-400) K/uL Medications Administered Current Inpatient Medications Acetaminophen (Acetaminophen 325 Mg Tab) 650 mg PO Q4H PRN PRN Reason: Pain or Fever Stop: 01/07/24 17:36 Al Hydrox/Mg Hydrox/Simethicone (Aluminum/Magnesium Susp 30 Ml Udc) 15 ml PO Q4H PRN PRN Reason: Dyspepsia Stop: 01/07/24 17:36 Amitriptyline HCl (Amitriptyline Hcl 50 Mg Tab) 50 mg PO DAILY [facility] Stop: 01/08/24 08:59 Last Admin: 12/10/23 09:23 Dose: 50 mg Atenolol (Atenolol 25 Mg Tablet) 25 mg PO DAILY [facility] Stop: 01/08/24 08:59 Last Admin: 12/10/23 09:24 Dose: 25 mg Atorvastatin Calcium (Atorvastatin 40 Mg Tab) 40 mg PO DAILY [facility] Stop: 01/08/24 08:59 Last Admin: 12/10/23 09:24 Dose: 40 mg Dextrose (Dextrose 50% 50 Ml Syringe) 25 - 50 ml IV UD PRN; Protocol PRN Reason: Hypoglycemia Protocol Stop: 01/07/24 17:36 Last Admin: 12/08/23 21:10 Dose: 50 ml Diltiazem HCl (Diltiazem Hcl 120 Mg Capcr) 120 mg PO DAILY [facility] Stop: 01/08/24 08:59 Last Admin: 12/10/23 09:24 Dose: 120 mg Docusate Sodium (Docusate Sodium 100 Mg Cap) 100 mg PO BID PRN PRN Reason: constipation Stop: 01/07/24 17:36 Enalapril Maleate (Enalapril Maleate 10 Mg Tab) 10 mg PO DAILY [facility] Stop: 01/08/24 08:59 Last Admin: 12/10/23 09:24 Dose: 10 mg Gabapentin (Gabapentin 800 Mg Tab) 800 mg PO TID [facility] Stop: 01/07/24 20:59 Last Admin: 12/10/23 13:12 Dose: 800 mg Glucagon (Glucagon For Inj 1 Mg Vial) 1 mg SQ UD PRN; Protocol PRN Reason: Hypoglycemia Protocol Stop: 01/07/24 17:36 Glucose (Glucose 10 Tab/Tube) 4 - 8 tab PO UD PRN; Protocol PRN Reason: Hypoglycemia Treatment Stop: 01/07/24 17:36 Glucose (Glucose 40% Gel 15 Gm Tube) 15 - 30 gm PO UD PRN; Protocol PRN Reason: Hypoglycemia Protocol Stop: 01/07/24 17:36 Heparin Sodium (Porcine) (Heparin Sod 5,000 Unit/0.5 Ml Vial) 5,000 units SQ Q8 [facility] Stop: 01/07/24 21:59 Last Admin: 12/10/23 13:11 Dose: 5,000 units Piperacillin Sod/Tazobactam (Sod 4.5 gm/ Dextrose) 100 mls @ 25 mls/hr IV Q8H [facility]; Protocol Stop: 12/15/23 19:59 Last Admin: 12/10/23 13:11 Dose: 25 mls/hr Insulin Aspart (Insulin Aspart Per Unit Charge) 0 units SC ACHS [facility]; Protocol Stop: 01/08/24 11:29 Last Admin: 12/10/23 13:03 Dose: 6 units Insulin Glargine (Lantus Per Unit Charge) 20 units SC DAILY [facility]; Protocol Stop: 01/09/24 08:59 Last Admin: 12/10/23 09:08 Dose: 20 units Miscellaneous (Carbohydrates For Hypoglycemia ) 15 - 30 gm PO UD PRN PRN Reason: Hypoglycemia Protocol Stop: 01/07/24 17:36 Miscellaneous Information (Pharmacy Glycemic Mgmt Consult) 1 each N/A UD PRN PRN Reason: Consult Stop: 01/07/24 17:36 Ondansetron HCl (Ondansetron Inj 2 Mg/Ml 2 Ml Vial) 4 mg IV Q6H PRN PRN Reason: Nausea Stop: 01/07/24 17:36 Polyethylene Glycol (Polyethylene (Miralax) 17 Gm Pack) 17 gm PO DAILY PRN PRN Reason: Constipation Stop: 01/07/24 17:36 Vibegron (Vibegron 75 Mg Tab) 75 mg PO DAILY [facility] Stop: 01/08/24 08:59 Last Admin: 12/10/23 09:25 Dose: 75 mg (3) DKA (diabetic ketoacidosis) Diabetes mellitus complication detail: without coma Diabetes mellitus type: type 1 Qualified Code(s): E10.10 - Type 1 diabetes mellitus with ketoacidosis without coma (5) Pneumonia Laterality: bilateral Lung location: lower lobe of lung Pneumonia type: due to unspecified organism Qualified Code(s): J18.9 - Pneumonia, unspecified organism
[2023-12-11 07:46] LABS: Basophils # (auto) 0.04 K/uL (0.00-0.20); Basophils % (auto) 0.5 %; Hemoglobin 15.2 g/dl (14.0-18.0); Immature Granulocytes # (auto) 0.04 K/uL (0.01-0.20); Immature Granulocytes % (auto) 0.5 %; Lymphocytes # (auto) 2.01 K/uL (1.20-3.40); Lymphocytes % (auto) 26.6 %; Mean Corpuscular Hemoglobin 32.6 pg (25.0-34.0); Mean Corpuscular Hgb Conc 33.8 g/dL (32.0-36.0); Mean Corpuscular Volume 96.6 fL (80.0-100.0); Mean Platelet Volume 8.9 fL (9.4-12.4); Monocytes # (auto) 0.77 K/uL (0.11-0.59); Monocytes % (auto) 10.2 %; Neutrophils # (auto) 4.39 K/uL (1.40-6.50); Neutrophils % (auto) 58.2 %; Platelet Count 217 K/uL (130-400); RDW Coefficient of Variation 13.2 % (11.5-14.5); RDW Standard Deviation 47.1 fL (36.4-46.3); Red Blood Count 4.66 M/uL (4.70-6.10); White Blood Count 7.55 K/ul (4.8-10.8)
[2023-12-11 08:50] LABS: BUN Creatinine Ratio 18.2 (10-20); Calcium 8.9 mg/dl (8.6-10.3); Creatinine Clr Calc Pharmacy 101.4 ml/min; Est GFR (African American) 110.4 ml/min; Est GFR (Non-African American) 95.2 ml/min; Magnesium 2.1 mg/dl (1.7-2.4); Phosphorus 4.2 mg/dl (2.5-4.9); Potassium 4.2 mmol/L (3.5-5.1)
[2023-12-11] MEDS: INSULIN ASPART PER UNIT CHARGE SC ONE (09:48)
--- NOTE | 2023-12-11 14:12 | Hospitalist Progress Note ---
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 Metabolic encephalopathy Metabolic acidosis Diabetic ketoacidosis He is an insulin-dependent type 1 diabetic, last A1c in August was 8.1 According to staff he had only been taking 16 units of Humalog 3 times a day, for some reason his long-acting insulin has dropped off his MAR and for an unknown duration Suspect DKA in setting of possible underlying infection as well as not taking long-acting insulin He was started on insulin drip appropriately in ED Continue IV fluid 1/2NS + 20kcl until reach goal range of 150-250 Once goal range is met will switch to incorporate D5 Consult glycemic pharmacy-appreciate input and recommendation Given his age will reduce rate of IVF Blood sugar has been stable and the IV insulin was changed to subcu Started with oral diet A lot better today and seems to be at his baseline Has been communicating almost normally and wants to go back to [facility] when appropriate Awaiting PT and OT evaluation prior to discharge Will adjust doses of insulin at discharge Lactic Acidosis 2/2 above will bolus additional 500ml IVF follow repeat-lactic acid became normal on repeat examination Sepsis Pneumonia In ED he met criteria for sepsis in setting of leukocytosis, tachycardia and evidence of pneumonia on imaging -- Chest x-ray reveals mild airspace opacities in right mid to lower lung as well as left lung base He did test positive for SARS-CoV-2 According to outpatient epic he was treated with Paxlovid in October for positive COVID, suspect COVID-19 is not active MRSA swab pending-negative Empirically treat with IV Zosyn Blood cultures obtained-negative so far Procalcitonin ordered-not significantly elevated Possible aspiration, will consult speech therapy Will continue with current antibiotic No respiratory symptoms and will continue current antibiotic to finish the course Change antibiotic to oral from tomorrow SARS COV-2 pt treated for covid in october, suspect residual positive he has no true sx and does not meet criteria for sepsis EPIC encounter noted treatment 10/31/23 covid precautions as I do not have a test to prove proof of infection No respiratory symptoms and has been saturating normally on room air Will not start any treatment for COVID-19 virus infection No respiratory symptoms and has been saturating normally on room air HTN Chronic, stable BP elevated in ED On atenolol, benazepril, diltiazem Monitor HLD Chronic, stable Continue statin Diabetic neuropathy Hold gabapentin in setting of encephalopathy, resume as soon as able Continue amitriptyline DVT prophylaxis: Subcu heparin Full code PCP: Ilana Escobar Dispo: admit to PCU, pt resides at [facility], may need rehab Will advise PT and OT evaluation Will discuss with the son Admission and Anticipated Discharge Date Admission Date: December 08, 2023 Subjective 12/09/2023 The patient was seen and examined in telemetry unit He has been stable and feels a little better Remains pleasantly confused No acute distress and denies any symptoms 12/10/2023 The patient was seen and examined in telemetry unit He has been feeling much better and complicating almost normal Wants to go back to [facility] when appropriate Blood sugar seems to be improving and does not have any respiratory symptoms 12/11/2023 The patient was seen and examined in telemetry unit He has been feeling much better Blood sugar seems to be reasonably controlled Denies any significant symptoms Will have PT and OT evaluation prior to discharge tomorrow Review of Systems Review of Systems: All systems reviewed and are unremarkable except as noted below Physical Exam Physical Exam: Lying in bed without any acute distress Constitutional: well developed, well nourished, + ill appearing and + obese Eyes: PERRL, conjunctivae normal, anicteric sclerae ENMT: external ear and nose normal, oropharynx normal Neck: trachea midline, no thyromegaly Respiratory: no respiratory distress Auscultation: lungs clear to auscultation bilaterally Cardiovascular: Rate/Rhythm: regular rate and regular rhythm; not tachycardic Heart Sounds: normal S1 and normal S2; no murmur Extremities: no edema Gastrointestinal (Abdomen): Inspection/Auscultation: normal bowel sounds; abdomen not distended Percussion/Palpation: abdomen soft; abdomen nontender Musculoskeletal: No acute arthritis involving any joint but has significant right hemiplegia from prior stroke Neurologic: Alert and awake. Minimal dysarthria from prior stroke and right hemiplegia with right foot drop Lymphatic: no cervical or axillary lymphadenopathy Results & Data Results & Data Vital Signs (Past 12 Hours) Vital Signs Temp Pulse Pulse Resp BP Pulse Ox O2 Del Method 12/11/23 12:06 36.6 C 78 18 135/82 92 Room Air 12/11/23 07:52 36.5 C 84 18 129/81 94 Room Air 12/11/23 07:02 79 12/11/23 04:25 36.3 C L 85 16 167/85 H 95 Room Air Laboratory Results Short CBC 12/11/23 Range/Units 07:26 WBC 7.55 (4.8-10.8) K/ul Hgb 15.2 (14.0-18.0) g/dl Hct 45.0 (42.0-52.0) % Plt Count 217 (130-400) K/uL BMP 12/11/23 07:26 Sodium 134 L Potassium 4.2 Chloride 98 Carbon Dioxide 29 BUN 12 Creatinine 0.66 Glucose 156 H Calcium 8.9 Medications Administered Current Inpatient Medications Acetaminophen (Acetaminophen 325 Mg Tab) 650 mg PO Q4H PRN PRN Reason: Pain or Fever Stop: 01/07/24 17:36 Al Hydrox/Mg Hydrox/Simethicone (Aluminum/Magnesium Susp 30 Ml Udc) 15 ml PO Q4H PRN PRN Reason: Dyspepsia Stop: 01/07/24 17:36 Amitriptyline HCl (Amitriptyline Hcl 50 Mg Tab) 50 mg PO DAILY ISABEL Stop: 01/08/24 08:59 Last Admin: 12/11/23 08:08 Dose: 50 mg Atenolol (Atenolol 25 Mg Tablet) 25 mg PO DAILY ISABEL Stop: 01/08/24 08:59 Last Admin: 12/11/23 08:09 Dose: 25 mg Atorvastatin Calcium (Atorvastatin 40 Mg Tab) 40 mg PO DAILY ISABEL Stop: 01/08/24 08:59 Last Admin: 12/11/23 08:09 Dose: 40 mg Dextrose (Dextrose 50% 50 Ml Syringe) 25 - 50 ml IV UD PRN; Protocol PRN Reason: Hypoglycemia Protocol Stop: 01/07/24 17:36 Last Admin: 12/08/23 21:10 Dose: 50 ml Diltiazem HCl (Diltiazem Hcl 120 Mg Capcr) 120 mg PO DAILY ISABEL Stop: 01/08/24 08:59 Last Admin: 12/11/23 08:09 Dose: 120 mg Docusate Sodium (Docusate Sodium 100 Mg Cap) 100 mg PO BID PRN PRN Reason: constipation Stop: 01/07/24 17:36 Enalapril Maleate (Enalapril Maleate 10 Mg Tab) 10 mg PO DAILY ISABEL Stop: 01/08/24 08:59 Last Admin: 12/11/23 08:09 Dose: 10 mg Gabapentin (Gabapentin 800 Mg Tab) 800 mg PO TID ISABEL Stop: 01/07/24 20:59 Last Admin: 12/11/23 12:45 Dose: 800 mg Glucagon (Glucagon For Inj 1 Mg Vial) 1 mg SQ UD PRN; Protocol PRN Reason: Hypoglycemia Protocol Stop: 01/07/24 17:36 Glucose (Glucose 10 Tab/Tube) 4 - 8 tab PO UD PRN; Protocol PRN Reason: Hypoglycemia Treatment Stop: 01/07/24 17:36 Glucose (Glucose 40% Gel 15 Gm Tube) 15 - 30 gm PO UD PRN; Protocol PRN Reason: Hypoglycemia Protocol Stop: 01/07/24 17:36 Heparin Sodium (Porcine) (Heparin Sod 5,000 Unit/0.5 Ml Vial) 5,000 units SQ Q8 ISABEL Stop: 01/07/24 21:59 Last Admin: 12/11/23 12:43 Dose: 5,000 units Piperacillin Sod/Tazobactam (Sod 4.5 gm/ Dextrose) 100 mls @ 25 mls/hr IV Q8H ISABEL; Protocol Stop: 12/15/23 19:59 Last Admin: 12/11/23 12:43 Dose: 25 mls/hr Insulin Aspart (Insulin Aspart Per Unit Charge) 0 units SC ACHS [facility]; Protocol Stop: 01/08/24 11:29 Last Admin: 12/11/23 12:35 Dose: 7 units Insulin Glargine (Lantus Per Unit Charge) 20 units SC DAILY [facility]; Protocol Stop: 01/09/24 08:59 Last Admin: 12/11/23 08:27 Dose: 20 units Miscellaneous (Carbohydrates For Hypoglycemia ) 15 - 30 gm PO UD PRN PRN Reason: Hypoglycemia Protocol Stop: 01/07/24 17:36 Miscellaneous Information (Pharmacy Glycemic Mgmt Consult) 1 each N/A UD PRN PRN Reason: Consult Stop: 01/07/24 17:36 Ondansetron HCl (Ondansetron Inj 2 Mg/Ml 2 Ml Vial) 4 mg IV Q6H PRN PRN Reason: Nausea Stop: 01/07/24 17:36 Polyethylene Glycol (Polyethylene (Miralax) 17 Gm Pack) 17 gm PO DAILY PRN PRN Reason: Constipation Stop: 01/07/24 17:36 Vibegron (Vibegron 75 Mg Tab) 75 mg PO DAILY ISABEL Stop: 01/08/24 08:59 Last Admin: 12/11/23 08:10 Dose: 75 mg (3) DKA (diabetic ketoacidosis) Diabetes mellitus complication detail: without coma Diabetes mellitus type: type 1 Qualified Code(s): E10.10 - Type 1 diabetes mellitus with ketoacidosis without coma (5) Pneumonia Laterality: bilateral Lung location: lower lobe of lung Pneumonia type: due to unspecified organism Qualified Code(s): J18.9 - Pneumonia, unspecified organism
[2023-12-12 07:31] LABS: Calcium 8.7 mg/dl (8.6-10.3); Magnesium 2.2 mg/dl (1.7-2.4); Potassium 4.1 mmol/L (3.5-5.1)
[2023-12-12 07:37] LABS: BUN Creatinine Ratio 17.2 (10-20); Creatinine Clr Calc Pharmacy 104.6 ml/min; Est GFR (African American) 111.8 ml/min; Est GFR (Non-African American) 96.5 ml/min; Phosphorus 3.8 mg/dl (2.5-4.9)
[2023-12-12] MEDS ORDERED: LANTUS PER UNIT CHARGE SC SCH (09:00)
[2023-12-12] MEDS: LANTUS PER UNIT CHARGE SC ONE (12:21)
--- NOTE | 2023-12-12 12:30 | Pharmacy Report ---
Pharmacy Glycemic Short Note 2 - Date of Service December 12, 2023 - Glycemic Short BSG Results (Last 24 hours): 12/11/23 12/11/23 12/12/23 16:52 20:38 06:47 Glucose 204 H POC Glucose 214 H 229 H 12/12/23 12/12/23 12/12/23 07:43 11:54 11:56 Glucose POC Glucose 239 H 302 H* 255 H OUTPATIENT ANTIDIABETIC REGIMEN: * Lantus 21 units SC HS * Humalog 16 units SC AC HbA1c: 8.4% (12/09/23) ASSESSMENT: 12/12/23: * Last 4 BSG's elevated >200 mg/dL * Lantus has been increased to his home dose of 21 units. Working on gradually moving back to patient's home administration time of HS. Will give at lunch today. * CHO ratio was tightened significantly yesterday. PO CHO intake has been on the lower side, with a max of 37 g CHO in the last 24 hours. Hesitant to tighten CHO ratio further in case of higher CHO meal. Will leave for now, but tighten correction factor slightly. 12/10/23: * Blood sugars trended down nicely yesterday following insulin gtt transition * Will continue 20 units of basal/day, if fasting blood sugar continues to increase tomorrow, then will plan to increase basal * Will maintain carb ratio, but will loosen CF slightly given significant correction yesterday of blood sugar of 300 mg/dL * Originally had planned to give basal this evening to correlate with outpatient regimen, but given elevated blood sugar this morning and last basal dose yesterday morning, will give again this morning. Consider stepping back to HS over coming days. 12/09/23: * 73 yo M admitted on 12/08/23 secondary to DKA. Pharmacy has been consulted to assist with inpatient glycemic management. Patient is a Type 1 diabetic as an outpatient. Please refer to outpatient regimen and most recent HbA1c above. * Upon presentation, patient's labs were as follows: K=4.3, Anion Gap=20, CO2=16, SCr=1.0, QSQ=159, pH=7.25. Patient was made NPO and started on an insulin drip at 8 units/hr with an initial bolus dose of 8 units. D5 1/2 NS + 20 K+ has been running since yesterday afternoon at 150 mL/hr. * Patient remained NPO and continues on the insulin drip into this morning. Received 55 units from the drip over night. BSGs did trend down: [id number] mg/dL. * BSG was back up to 233 mg/dL this AM. Remains on D5 1/2NS + 20 K+ at 150 mL/hr. Insulin drip running at 1.3 units/hr. Labs this morning showed closure of anion gap and resolution of acidosis: K=3.8, Anion Gap=6, CO2=20, SCr=0.63, UHE=640, pH=7.34. * Spoke with RN who believes patient can tolerate a diet this morning. Already gave 10 units of basal around 0815. Provider okay with discontinuation of insulin drip and fluid with transition to subcutaneous insulin. May give another basal dose at lunchtime if patient is tolerating diet. Bolus regimen will be started at lunchtime. PLAN FOR INPATIENT GLYCEMIC CONTROL: * Basal insulin - increase * Lantus 21 units SC daily * Bolus insulin - tighten correction factor * NovoLog per scale ACHS or Q6hrs while NPO * Goal Range: Low 110 mg/dL - High 140 mg/dL * Correction Factor: 22 mg/dL/unit * Nutritional / Prandial insulin per carb ratio of 1 unit per 7 grams CHO consumed
--- NOTE | 2023-12-12 14:53 | Discharge Summary ---
Discharge Summary Date of Service December 12, 2023 Notes For Next Care Provider Hospitalized for sepsis in setting of aspiration pneumonia, diabetic ketoacidosis with metabolic encephalopathy. Treated with insulin drip and transition back to home regimen of basal bolus insulin. Treated with IV Zosyn and de-escalating to Augmentin at discharge. His A1c was 8.4 during hospital stay. Recommend follow-up with [facility] pharmacy for improved glycemic control. Medication Changes From Visit Augmentin 875 mg take 1 tablet by mouth twice daily for additional 7 days. This is an antibiotic to complete treatment for pneumonia. Please complete in its entirety. Florastor 250 mg 1 tablet by mouth once daily. This is a probiotic to protect your GI health while on antibiotic therapy. Continue all other medications as prescribed. 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 He currently resides at [facility] living at [facility]. He lives by himself and manages his own medication. He was sent over to ED today due to his blood glucose monitor reading as high. It is also reported that staff that he had been more confused in the last couple of days. Due to his underlying aphasia he can be difficult to understand, but staff still felt he was more confused. History mostly obtained from ED provider and nurse due to underlying confusion and patient. Staff also noted at [facility] that he was diaphoretic upon sending to ED. In ED patient was hypertensive and tachycardic. Lab work noted patient to be in DKA with elevated blood glucose of 431, anion gap 20, bicarb 16 and ketone and glucosuria. He did have a mild elevated white blood cell count at 12,000. His respiratory bio fire was significant for SARS-CoV-2; however, according to [facility] he was treated with Paxlovid in October for COVID. Chest x-ray concerning for right mid and lower lung airspace opacities. In ED he received IV fluids. He was started on insulin drip. He also received IV Zosyn after blood cultures were obtained. According to staff over at [facility] pt had only been taking novolog and that he had no longer been taking his long acting insulin. They said it, "fell off his MAR." EPIC Chart Reviewed Unable to obtain Social and surgical hx due to confusion. Admission Exam Per Admitting Provider Constitutional: Elderly, M, confused, vitals as above, NAD, sitting up in bed Head: Normocephalic, Atraumatic Eyes: PERRL, conjunctivae normal, anicteric sclerae ENMT: external ear and nose normal, oropharynx normal Neck: trachea midline, no thyromegaly normal visual inspection Respiratory: normal respiratory effort, lungs clear to auscultation, no wheeze, rales, rhonchi. Normal insp/exp effort, no accessory muscle use Cardiovascular: tachycardic rate, reg rhythm, no murmur, no edema Vessels: no JVD or carotid bruit Chest: normal inspection of chest Abdomen: normal bowel sounds, soft, nontender, no hepatosplenomegaly Musculoskeletal: no cyanosis or clubbing, RHP, R foot drop with RLE brace Skin: no rashes, warm and dry normal turgor Neurologic: PERRL, EOMI, accommodation nl, no face palsy, no dysarthria CN's II-XI intact bilaterally and moves all extremities Psychiatric: Alert to self only, euthymic affect Lymphatic: no cervical or axillary lymphadenopathy : deferred Principal Dx & Hospital Course #1 = Principal Diagnosis (1) Metabolic encephalopathy: (2) Metabolic acidosis: (3) DKA (diabetic ketoacidosis): (4) Sepsis: (5) Pneumonia: (6) Type 1 diabetes mellitus: (7) History of hemorrhagic cerebrovascular accident (CVA) with residual deficit: Plan This is a 73-year-old male who has significant past medical history of 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 Metabolic encephalopathy Metabolic acidosis Diabetic ketoacidosis He is an insulin-dependent type 1 diabetic, a1c 8.4 According to staff he had only been taking 16 units of Humalog 3 times a day, for some reason his long-acting insulin has dropped off his MAR and for an unknown duration Pt denies this and states he has been taking 21 units of Lantus in P.M. Suspect DKA in setting of possible underlying infection as well as possibly not taking long-acting insulin He was started on insulin drip appropriately in ED Eventually was transitioned back to basal bolus regimen once in goal range and once acidosis resolved Encephalopathy resolved PT/OT recommends discharge back to [facility] at [facility] pt declining and insulin regimen changes and states he wants to speak with his outpatient team that is managing He wishes to continue on home regimen Lactic Acidosis 2/2 above resolved Sepsis Pneumonia In ED he met criteria for sepsis in setting of leukocytosis, tachycardia and evidence of pneumonia on imaging -- Chest x-ray reveals mild airspace opacities in right mid to lower lung as well as left lung base He did test positive for SARS-CoV-2 According to outpatient epic he was treated with Paxlovid in October for positive COVID, suspect COVID-19 is not active MRSA swab pending-negative Empirically treat with IV Zosyn Blood cultures obtained-negative so far Procalcitonin ordered-not significantly elevated Possible aspiration, aspiration precautions recommended De escalate to Augmentin for additional 7 more days SARS COV-2 pt treated for covid in october, suspect residual positive he has no true sx EPIC encounter noted treatment 10/31/23 covid precautions as I do not have a test to prove proof of infection No respiratory symptoms and has been saturating normally on room air Will not start any treatment for COVID-19 virus infection HTN Chronic, stable BP elevated in ED On atenolol, benazepril, diltiazem Monitor HLD Chronic, stable Continue statin Diabetic neuropathy Continue gabapentin and continue amitriptyline Full code PCP: Ilana Escobar Dispo: D/C back to [facility] at [facility] On day of discharge pt is back to baseline. I discussed with his son and updated him regarding current condition, assessment and treatment plan and he agrees with above. Pt voices on concerns on day of discharge. He is tolerating diet. BSG continues to run elevated, but unfortunately he wishes to discuss his diabetic regimen with outpatient provider. Discharge Exam Gen: WD/WN, NAD, A&O x3, slight aphasia noted HEENT: Normocephalic, atraumatic, conjunctivae moist, sclerae anicteric, mucous membranes moist. Lung: Clear to Auscultation bilaterally, no wheezes/rales/rhonchi Heart: Regular rate, regular rhythm, no murmurs, rubs, or gallops Abdomen: Soft, NT, ND +BS x 4 Extremities: No edema, right hemiparesis Skin: Warm, no rash, negative turgor. Updated Medication List Medication Instructions Recorded Confirmed Type amitriptyline 50 mg tablet 50 mg PO DAILY 09/11/23 12/08/23 History atenolol 25 mg tablet 25 mg PO DAILY 09/11/23 12/08/23 History atorvastatin 40 mg tablet 40 mg PO DAILY 09/11/23 12/08/23 History benazepril 10 mg tablet 10 mg PO DAILY 09/11/23 12/08/23 History diltiazem HCl 120 mg 120 mg PO DAILY 09/11/23 12/08/23 History capsule,extended release 24 hr docusate sodium 100 mg tablet 100 mg PO BID 09/11/23 12/08/23 History gabapentin 800 mg tablet 800 mg PO TID 09/11/23 12/08/23 History insulin lispro 100 unit/mL 16 unit subcut UD 09/11/23 12/08/23 History subcutaneous pen (Humalog KwikPen (U-100) Insulin) mirabegron 50 mg tablet,extended 50 mg PO DAILY 09/11/23 12/08/23 History release 24 hr (Myrbetriq) polyethylene glycol 3350 17 gram 17 g PO DAILY 09/11/23 12/08/23 History oral powder packet (Miralax) Glucagon Emergency Kit 1 mg subcut UD PRN Hypoglycemia 12/08/23 12/08/23 History Saccharomyces boulardii 250 mg 250 mg PO DAILY #7 caps 12/12/23 Rx capsule (Florastor) amoxicillin 875 mg-potassium 1 tab PO Q12H #14 tabs 12/12/23 Rx clavulanate 125 mg tablet insulin glargine 100 unit/mL 21 unit subcut HS 12/12/23 12/12/23 History subcutaneous solution (Lantus U-100 Insulin) Hospital Stay Data Consultations 12/08/23 13:14 ED Decision to Admit Stat Pending Results Patient Have Any Pending Studies at Discharge: No Discharge Instructions Given to Patient (Per Discharging Provider) MEDICATION CHANGES: Augmentin 875 mg take 1 tablet by mouth twice daily for additional 7 days. This is an antibiotic to complete treatment for pneumonia. Please complete in its entirety. Florastor 250 mg 1 tablet by mouth once daily. This is a probiotic to protect your GI health while on antibiotic therapy. Continue all other medications as prescribed. SUMMARY OF TEST RESULTS: You were admitted to hospital secondary to his sepsis and underlying pneumonia. This resulted in your blood sugar becoming significantly elevated and putting you in a state called diabetic ketoacidosis. You were treated with IV insulin until your blood sugar improved. You were placed on IV antibiotics to treat pneumonia. This is being transition to an oral antibiotic at discharge. You were evaluated by speech therapy due to concerns for possible aspiration. It is recommended that you follow aspiration precautions and pick foods that are more slippery in consistency. PENDING TEST RESULTS: none RECOMMENDATIONS FOR FOLLOW-UP: Please follow-up with your primary care provider as scheduled. It is recommended that you continue follow-up with your primary care provider for further adjustment in insulin to improve glycemic control. Your A1c in the hospital was 8.4. It is recommended to obtain improved control. You can discuss this with your primary care provider. Continue to monitor your blood sugar on your CGM. It is recommended that you pick foods that are easy to chew with a slippery consistency. * Do not eat 30 to 60 minutes before laying down and make sure to be fully upright for all intake * Recommend single bites, small sips and eating at a slow rate * Recommend alternating between solid and liquids * Consider smaller more frequent meals * Recommend routine mouth care in which cleaning of all surfaces of mouth is done to reduce amount of oral bacteria and saliva * Consider foods that are thin and slippery in nature, avoid thick and clumpy foods * You can add condiments, gravies, sauces to make foods more moist Please take all antibiotics in its entirety. This is to treat your pneumonia. Encourage staying well-hydrated. OTHER INSTRUCTIONS: Seek medical attention if you have: * temperature above 101 * chest pain or trouble breathing * abdominal pain, nausea, vomiting * diarrhea, dark stools or bloody stools * any unanswered questions or concerns Call 911 if symptoms are severe. Please take good care of yourself. It has been a pleasure taking care of you. Please take care of yourself. If you have any questions regarding your recent hospitalization please contact [facility] and request Rose Hargrove @ [phone]. Devika Llanos PA-C Total Time Total Time Spent Total Time Spent (In Minutes): 45 minutes Supervising Physician Co-Signing Physician Notes 12/12/2023 The patient was seen and examined in medical floor He has been feeling much better and wants to go back to [facility] today Denies any significant symptoms On examination Sitting on a chair without any acute distress Remains hemodynamically stable His labs, discharge medications, imaging studies reviewed Admitted with change in mental status secondary to uncontrolled diabetes/DKA and is complicated by pneumonia Clinically improved a lot and will be discharged today to [facility] Agree with assessment and plan as outlined above by Oly Camp
== END 2023-12-12 17:20 | disposition home or self-care (01) | DRG 871 ==
LOC: ED 11:06 → 2S 14:02 → 3W 12-11 17:10

== ENCOUNTER 2024-12-30 20:05 | Inpatient (IN) ==
--- OUTSIDE RECORDS SUMMARY | 2024-12-30 20:10 | External Medical Summary | Summary of Care ---
Author Name Unknown Organization [facility] Address [address] [place] [address] Phone [phone] Care Team Providers Care Duct Maker Name Role Phone Ilana Grayson MD Primary Care Provider Reason for Visit * Reason Onset Date Comments Medication Question 10/23/2024 Encounter Details Date Type Department Care Team (Late st Contact Info) Description 10/23/2024 Telephone General Internal Medicine [facility] [address] [facility] [place] [address] Ilana Grayson MD [address] [place] [address] Medication Question Allergies Active Allergy Reactions Criticality Noted Date Comments Terbinafine Rash High 09/11/2023 documented as of this encounter (statuses as of 11/30/2024) Medications Amitriptyline HCl 25 MG Oral Tablet (Elavil)Indicati ons: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 90 Tablet 5 4 Active Docusate Sodium 100 MG Oral Tablet Take 1 Tablet by mouth daily as needed for Constipation. 90 Tablet 3 4 Active Gabapentin 800 MG Oral Tablet (Neurontin) Take 1 Tablet by mouth in the morning and 1 Tablet at noon and 1 Tablet before bedtime. 270 Tablet 3 4 Active Glucagon 1 MG/0.2ML Subcutaneous Solution Inject 1 mg as needed for hypoglycemia 0.2 mL 11 4 Active Additional Information Patient not taking.Reported on 08/03/2024 Insulin Lispro 100 UNIT/ML Injection Solution (HumaLOG)Indicat ions:Type 1 diabetes mellitus with hemoglobin A1c goal of less than 7.0% (HCC) Take 6 units before BF , 6 units BL and 8 units BS is sugar 80-125. 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 Dx E10.9 100 Each 3 4 Active Insulin Glargine 100 UNIT/ML Subcutaneous Solution Pen-injector (Lantus)Indicati ons:Type 1 diabetes mellitus with hemoglobin A1c goal of less than 7.0% (HCC),Hypoglycem ia Inject 19 Units under the skin every evening. 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 9 Each 3 4 Active Atenolol 25 MG Oral Tablet (Tenormin)Indica tions:History of CVA with residual deficit,HTN, goal below 140/90,Hypotensi on, unspecified hypotension type Take 0.5 Tablets by mouth in the morning. 90 Tablet 1 4 Active Benazepril HCl 10 MG Oral Tablet (Lotensin)Indica tions:HTN, goal below 140/90 Take 1 Tablet by mouth in the morning. 90 Tablet 1 4 Active BD Pen Needle Yvonne 2nd Gen 32G X 4 MM (Insulin Pen Needle) USE WITH INSULIN PEN 4 TO 5 TIMES A DAY DIRECTED 500 Each 3 4 Active Atorvastatin Calcium 80 MG Oral Tablet (Lipitor) TAKE 1 TABLET BY MOUTH EVERY DAY FOR 90 DAYS 4 Active oxyCODONE HCl 5 MG Oral Tablet (Oxy IR) Take 1 Tablet by mouth at bedtime as needed for Pain, Moderate. 30 Tablet 4 Active Myrbetriq 50 MG Oral Tablet Extended Release 24 Hour (Mirabegron ER) TAKE 1 TABLET BY MOUTH IN THE MORNING 90 Tablet 3 4 Active documented as of this encounter (statuses as of 11/30/2024) Active Problems Problem Noted Date Diagnosed Date Type 1 diabetes mellitus wit h hemoglobin A1c goal of less than 7.0% 09/19/2023 HTN, goal below 140/90 09/19/2023 Hyperlipidemia LDL goal <100 09/19/2023 CVA (cerebral vascular accident) 09/19/2023 Recurrent falls while walking 09/19/2023 Closed fracture of distal en d of right humerus with routine healing 09/19/2023 DM type 1 with diabetic peripheral neuropathy documented as of this encounter (statuses as of 11/30/2024) Immunizations Name Administration Dates Next Due COVID-19 mRNA, LNP-s, No Pre serve, 2-Dose Series (Moderna) 11/21/2020,10/23/2020 COVID-19, MRNA-LNP, PF, 30 M CG/0.3 mL, 12 YRS AND ABOVE, IM [facility] 09/01/2023 COVID-19, mRNA, LNP-s, PF, B ooster, 100mcg/0.5mg (Moderna) 12/19/2021,06/24/2021 Covid-19, Mrna, Lnp-s, Pf, B ivalent, 50 Mcg, IM, 12 yrs and above (Moderna) 08/19/2022 IPV - Polio Virus Vaccine (Inact) 09/12/1959 Pneumococcal Conjugate Vacc, 13 Valent (Prevnar) 06/25/2015 Pneumococcal Conjugate Vacci ne, 20-valent ([id number]) 08/03/2024 Pneumococcal Polysaccharide PPV23 (Pneumovax) 05/24/2011 Seasonal Influenza Virus Vac cine, Unspecified Formulation 06/19/2024 Seasonal Influenza, PF, 6 M & above, IM , (FluLaval or Fluzone) 09/01/2023,06/24/2022,06/16/2021,06/02,05/27/2020,05/03/2019,06/01/2018 ,07/28/2016,06/29/2016,06/25/2015,1003/2014,05/29/2013,05/23/2012 TDAP (age 10 and older)(Boostrix) 06/25/2021,09/2011 Zoster Vaccine Recombinant (Shingrix) 10/23/2021 ,07/01/2021 documented as of this encounter Social History Tobacco Use Types Packs/Day Years Used Date Smoking Tobacco: Never Smokeless Tobacco: Former Alcohol Use Standard Drinks/Week Comments Yes 0 (1 standard drink = 0.6 oz pur e alcohol) occasional wine PHQ-2 Answer Date Recorded PHQ Adult Total Score 0 02/28/2024 Hunger Vital Sign Answer Date Recorded Within the past 12 months, y ou worried that your food would run out before you got the money to buy more. Never true 02/28/20 24 Within the past 12 months, t he food you bought just didn't last and you didn't have money to get more. Never true 02/28/2024 Childcare Answer Date Recorded Do you feel overwhelmed with taking care of a child, family member or friend? No 02/28/2024 Does your family need help f inding childcare? (Household - for ages 0-17 years) Not on file 02/28/2024 Clothing Answer Date Recorded Have you been unable to get clothing when it was really needed? No 02/28/2024 Is your family able to get c lothes or diapers when needed? (Household - for ages 0-17 years) Not on file 02/28/2024 Personal Safety Answer Date Recorded Do you feel unsafe or have concerns for your saf ety? No 02/28/2024 Do you have concerns for you r family's safety? (Household - for ages 0-17 years) Not on file 02/28/2024 Utilities Answer Date Recorded Do you have trouble paying y our heating, water, or electric bill? No 02/28/2024 Is your family able to pay t he heat, water, or electric bill? (Household - for ages 0-17 years) Not on file 02/28/2024 Does your family have access to good internet? (Household - for ages 0-17 years) Not on file 02/28/2024 Employment Status Answer Date Recorded Are you unemployed or without regular income? No 02/28/2024 Does the household have a re gular source of income? (Household - for ages 0-17 years) Not on file 02/28/2024 Social Connections Answer Date Recorded How often do you feel lonely or isolated from th ose around you? Never 02/28/2024 Financial Resource Strain Answer Date R ecorded Do you have any trouble payi ng for your medications, or do you think you might in the future? No 02/28/2024 Does your family have troubl e paying for medicine? (Household - for ages 0-17 years) Not on file 02/28/2024 Transportation Needs Answer Date Record ed Do you have trouble getting a ride to medical visits or work? (Adult - for ages 18 years and over) Not on file 02/28/2024 Does your family have a hard time getting a ride to doctors visits? (Household - for ages 0-17 years) Not on file 02/28/2024 Has lack of transportation k ept you from medical appointments, meetings, work, or from getting things needed for daily living? Check all that apply. No 02/28/2024 Do you (or your family) have trouble finding or paying for a ride (transportation)? (Household - for ages 0-17 years) Not on file 02/28/2024 Housing Stability Answer Date Recorded Do you currently live in a s helter or have no steady place to sleep at night? No 02/28/2024 Do you think you are at risk of becoming homeless? (Adult - for ages 18 years and over) Not on file 02/28/2024 Does your family worry about paying for your home or becoming homeless? (Household - for ages 0-17 years) Not on file 0 02/28/2024 Are you homeless or worried that you might be in the future? No 02/28/2024 Are you (or your family) mauro eless or worried that you might be in the future? (Household - for ages 0-17 years) Not on file Food Insecurity Answer Date Recorded Do you need food for this week? No 02/28/2024 Are you able to get enough f ood for your family? (Household - for ages 0-17 years) Not on file 02/28/2024 Does your family need food t his week? (Household - for ages 0-17 years) Not on file 02/28/2024 Do you always have enough fo od for your family? (Household - for ages 0-17 years) Not on file 02/28/2024 Food Insecurity Answer Date Recorded Within the past 12 months, y ou worried that your food would run out before you got the money to buy more. Never true 02/28/20 24 Within the past 12 months, t he food you bought just didn't last and you didn't have money to get more. Never true 02/28/2024 Do you need food for this week? No 02/28/2024 Sex and Gender Information Value Date Recorded Sex Assigned at Male 10/31/2023 2:03 PM EST Legal Sex Male 10:31 AM EST Gender Identity Male 10/31/2023 2:03 PM EST Sexual Orientation Straight 10/31/2023 2: 03 PM EST documented as of this encounter Miscellaneous Notes * Telephone Encounter - Latoya Luu OSA - 10/24/2024 7:50 AM EST LMOM will call back later to get him scheduled 10/24/2024 * Telephone Encounter - Ilana Grayson MD - 10/23/2024 12:17 PM EST I saw him 10 months ago and next appoint scheduled in January - move appoint sooner with me for med discussion and look into more detail * Telephone Encounter - Dipti Bonilla CMA - 10/23/2024 11:13 AM EST Can you please advise regarding medications and correct doses * Telephone Encounter - Pam Little, publications production supervisor - 10/23/2024 10:24 AM EST Patient calling asking about the dose of his Amitriptyline. States he was prescribed 25 mg when he was previously on 50 mg and also questioned the dose of the atorvastatin. States he was taking 40 mgand is now prescribed 80 mg. Patient is requesting a callback at [phone] Thank you, Pam Little Crime Lab Analyst [facility] 10/23/2024,10:25 AM documented in this encounter Plan of Treatment Upcoming Encounters Date Type Department Care Team (Late st Contact Info) Description 01/31/2025 5:00 PM EDT Office Visit General Internal Medicine [facility] [address] [place] [address] Ilana Grayson MD [address] [facility] [place] [address] Health Maintenance Due Date Last Done Comments Diabetic Foot Exam 1968 Hepatitis C Screening 1968 Adult Wellness Visit 2015 Diabetic Eye Exam 04/04/2024 04/04/2023, , 04/04/2023, Additional history exists COVID-19 Vaccine ( season) 2024 09/01/2023, 08/19/2022, 12/19/2021, Additional history exists HbA1c 01/15/2025 07/18/2024, 08/13, 05/10/2023, Additional history exists Depression Screening 02/27/2025 02/28/2024 Albumin/Creatinine Ratio 07/18/2025 07/18/2024, 08/13 GFR 07/18/2025 07/18/2024, 01/11, 09/01/2023, Additional history exists DTap/Tdap Vaccines (3 - Td or Tdap) 06/25/2031 06/25/2021, 06/12/2012 Zoster Vaccines Completed 10/23/2021, 07/01/2021 Colonoscopy Discontinued 08/02/2023, 07/14 (Done elsewhere) Colorectal Cancer Screening Discontinued Influenza Vaccine (FLU shot) Completed 06/19/2024, 06/19/2024, 09/01/2023, Additional history exists Pneumococcal Vaccine: 50+ Years Completed 08/03/2024, 06/25/2015, 05/24/2011 Cologuard Discontinued Fecal Occult Blood Test Discontinued HPV (Gardasil) Vaccine Aged Out No lo nger eligible based on patient's age to complete this topic Hepatitis B Vaccine Aged Out No longe r eligible based on patient's age to complete this topic MENINGOCOCCAL (MENACTRA/MENVEO) Aged Out No longer eligible based on patient's age to complete this topic Meningitis B Vaccine (Bexsero/Trumemba) Aged Out No longer eligible based on patient's age to complete this topic Sigmoidoscopy Discontinued documented as of this encounter Medical Devices Not on filedocumented as of this encounter Care Teams Duct Maker Relationship Specialty Start Date End Date Ilana Grayson MD [address] [place] [id number] PCP - General Internal Medicine 12/08/23 documented as of this encounter
[2024-12-30] MEDS: SODIUM CHLORIDE 0.9% 1,000 ML IV ONE (20:31)
[2024-12-30 20:33] LABS: Base Excess VBG -0.2 mEq/L; HCO3 VBG 24 mmol/L; Oxygen Saturation VBG 85.5 %; PCO2 VBG 37 mmHg (38-50); PO2 VBG 49 mmHg; pH VBG 7.42 (7.36-7.41)
[2024-12-30 20:41] LABS: iSTAT Creatinine 0.6 mg/dl (0.6-1.3); iSTAT Ionized Calcium 1.11 mmol/l (1.12-1.32); iSTAT Potassium 3.7 mmol/L (3.3-5.0)
[2024-12-30 20:42] LABS: Basophils # (auto) 0.02 K/uL (0.00-0.20); Basophils % (auto) 0.2 %; Eosinophils # (auto) 0.07 K/uL (0.00-0.50); Eosinophils % (auto) 0.6 %; Hematocrit (blood only) 42.8 % (42.0-52.0); Hemoglobin 15.2 g/dl (14.0-18.0); Immature Granulocytes # (auto) 0.06 K/uL (0.01-0.20); Immature Granulocytes % (auto) 0.5 %; Lymphocytes # (auto) 2.02 K/uL (1.20-3.40); Mean Corpuscular Hemoglobin 32.4 pg (25.0-34.0); Mean Corpuscular Hgb Conc 35.5 g/dL (32.0-36.0); Mean Corpuscular Volume 91.3 fL (80.0-100.0); Monocytes # (auto) 1.36 K/uL (0.11-0.59); Monocytes % (auto) 11.5 %; Neutrophils # (auto) 8.33 K/uL (1.40-6.50); Neutrophils % (auto) 70.2 %; Platelet Count 280 K/uL (130-400); RDW Coefficient of Variation 11.6 % (11.5-14.5); RDW Standard Deviation 38.9 fL (36.4-46.3); Red Blood Count 4.69 M/uL (4.70-6.10); White Blood Count 11.86 K/ul (4.8-10.8)
--- NOTE | 2024-12-30 20:45 | Emergency Department Note ---
Impression & Plan Hyponatremia, Weakness, Hyperglycemia ED Provider Note NAME: BABAK LOVELACE Jr AGE: 74 SEX: M : 1950 ARRIVES VIA: Walk-In INFORMANT: Patient ED PROVIDER(S): Charly Jaffe DO CHIEF COMPLAINT: Elevated blood sugars, weakness HPI: Patient is a 74-year-old male with a past medical history of mild cognitive impairment, diabetes, CVA for feeling a little confused for the past 3 days and combination with weakness and trouble ambulating today. He does have a history of a previous stroke 20 years ago per his son. Patient currently denies any headache or change in vision. No chest pain or shortness of breath. No belly pain. No nausea, vomiting, or diarrhea. No dysuria, urgency or frequency. No other exacerbating or remitting factors. ADDITIONAL HISTORY OBTAINED: Son provides additional history and notes that this is typically how he presents with DKA. He has had intermittent episodes of confusion over the past 3 days. He has been very unsteady on his feet today. Chronic Medical/Social Conditions Affecting Care: Per HPI PAST MEDICAL HISTORY:See Below PAST SURGICAL HISTORY:See Below FAMILY HISTORY:See Below SOCIAL HISTORY:See Below HOME MEDICATIONS:See Below ALLERGIES:See Below VITALS:See Below PHYSICAL EXAMINATION: GENERAL: Sitting up in bed, alert, well appearing, well nourished, no distress, non-toxic EYE EXAM: normal conjunctiva. PERRL and EOM's grossly intact. OROPHARYNX: no exudate, no erythema, lips, buccal mucosa, and tongue normal and mucous membranes are moist NECK: supple, no nuchal rigidity, no adenopathy, non-tender LUNGS: Clear to auscultation. Normal chest wall mechanics HEART: no murmurs, S1 normal and S2 normal ABDOMEN: abdomen soft, non-tender, normo-active bowel sounds, no masses, no rebound or guarding. BACK: Back is symmetrical on inspection and there is no deformity, no midline tenderness, no CVA tenderness. SKIN: no rashes and no bruising UPPER EXTREMITIES: upper extremities are grossly normal. LOWER EXTREMITIES: No pitting edema. NEURO EXAM: Normal sensorium, slight right-sided facial droop, normal speech, no weakness of left upper extremity or left lower lower extremity. Unable to move right upper extremity as is contracted secondary to an old stroke. Right lower extremity able to lift off bed. Unable to plantar and dorsiflex. MEDICAL DECISION MAKING: Patient is 74-year-old male who presents to the ER for the above-stated complaint. IV was established blood work was obtained. Labs show mild leukocytosis 11.8 thousand. No significant anemia. VBG with a pH 7.42. BMP with a sodium at 124. Corrected for an elevated sugar at 127. Still hyponatremic. LFTs and bilirubin were unremarkable. Lipase was normal. UA was clean. Patient does have trouble walking and is on balance feels very weak. CT head was negative. Discussed case with the hospitalist for further evaluation management treatment. Patient was given IV fluids and Zofran while here in the ER. Consults/Care Managements Discussions: Per MDM Triage Nursing notes reviewed. Limited review of prior medical records performed Vital Signs: reviewed and remarkable for HTN adn tachy Differential diagnosis: Differential diagnoses includes but is not limited to toxic, metabolic, infectious, traumatic, cardiac, neurologic, hematologic, psychiatric and inflammatory etiologies. ER treatment provided: See below Diagnostics interpreted by me include EKG and cardiac monitoring as listed below: -Cardiac Monitoring: An order was placed for continuous cardiac monitoring. The monitor shows a rate of 90 with sinus rhythm. -ECG: none -Laboratory studies:Interpreted by me as stated above in MDM and shown below. Imaging studies: Xrays: As interpreted by me: Portable AP upright 1 view of the chest shows no focal infiltrate CTs show: CT head was negative Procedures:none Critical Care: None Past Med/Surg History Problem List (Updated 12/30/24 @ 23:11 by Charly Jaffe DO) Hyperglycemia (Acute) Weakness (Acute) Mild cognitive impairment Urinary incontinence Neuropathy Chronic pain syndrome BMI 31.0-31.9,adult Hyponatremia (Acute) Type 1 diabetes mellitus History of hemorrhagic cerebrovascular accident (CVA) with residual deficit (Acute) Recurrent falls (Acute) Medical History DKA (diabetic ketoacidosis) Closed supracondylar fracture of right elbow Pneumonia DKA (diabetic ketoacidosis) Metabolic encephalopathy Hyperlipidemia Hypertension History of stroke with residual deficit Hemorrhagic cerebrovascular accident (CVA) Surgical History H/O tooth extraction History of cataract surgery H/O colonoscopy Family History Grandmother (Maternal) Heart disease Father Pancreatic cancer Mother Emphysema lung Denies family history of Ovarian cancer Prostate cancer Breast cancer Colorectal cancer Social History Smoking Status: Former smoker Tobacco Type: Cigarettes Age Started Using Tobacco: 17; Age Quit Using Tobacco: 49; packs per day: 0.25; Second Hand Exposure: No; Do You Dip or Chew Tobacco: No; Hx Alcohol Use: Yes (4 times per week ) Alcohol type: wine Hx Substance Use: No Preferred Language: French Communication Ability: Aphasia Communication Ability Comment: aphasia, confusion Mon[employer]al Stonemason Required: No Beliefs That Will Affect Care: None marital status: / Current Living Situation: Personal Care Facility Current Living Situation Comment: [facility] current occupational status: retired Feels Safe at Home: Yes Childhood Exposure to Second-Hand Smoke: Yes Dental Care, Regularly: Yes Physical Activity Frequency: 3-4 Times per Week Seatbelt Use: always Sunscreen Use: No Assistive Devices: Brace/Splint/Immobilizer Allergies Allergies Allergy/AdvReac Type Severity Reaction Status Date / Time terbinafine [From Lamisil] Allergy Intermediate Rash Verified 12/30/24 21:58 Home Meds Home Medications Medication Instructions Recorded Confirmed insulin lispro 100 unit/mL 8 - 9 sliding scale dose subcut UD 11/03/24 12/30/24 subcutaneous pen (Humalog KwikPen (U-100) Insulin) benazepril 10 mg tablet 10 mg PO DAILY 12/30/24 12/30/24 Previous Rx's Medication Instructions Recorded blood-glucose sensor (Dexcom G7 #3 ea 05/09/24 Sensor device) insulin pump cart,automated,BT #10 ea 05/21/24 (Omnipod 5 G6 Pods (Gen 5) subcutaneous cartridge) insulin pump cartridge,automated #1 ea 05/21/24 dose,BT with controller subcutaneous (Omnipod 5 G6 Intro Kit (Gen 5) subcutaneous cartridge with controller) atorvastatin 80 mg tablet 80 mg PO DAILY 90 days #90 tabs 07/23/24 amitriptyline 25 mg tablet 25 mg PO HS #90 tabs 10/17/24 atenolol 25 mg tablet 25 mg PO DAILY #90 tabs 10/17/24 docusate sodium 100 mg tablet 100 mg PO BID #180 tabs 10/17/24 gabapentin 800 mg tablet 800 mg PO TID #180 tabs 10/17/24 mirabegron 50 mg tablet,extended 50 mg PO DAILY #90 tabs 10/17/24 release 24 hr (Myrbetriq) insulin glargine 100 unit/mL (3 22 unit (0.22 mL) subcut QPM #15 mL 10/25/24 mL) subcutaneous pen (Lantus Solostar U-100 Insulin) Results & Data (ED) Vital Signs Vital Signs - 24 hr 12/30/24 20:07 12/30/24 20:30 12/30/24 20:32 Temperature 37.1 C Temperature Source Temporal Artery Scan Pulse Rate 111 H 104 H Pulse Rate from SpO2 Sensor Respiratory Rate 20 Respiratory Effort / Characteristics Non-Labored Spontaneous Respiratory Depth Normal Respiratory Pattern Regular Blood Pressure 151/72 H Blood Pressure Mean 98 Pulse Oximetry 94 98 Oxygen Delivery Method Room Air Room Air Sepsis Recent Fever Within 48 Hours No Sepsis New/Unexplained Change in Mental Status N/A Sepsis Action Taken by Nursing No Action Required 12/30/24 20:36 12/30/24 21:33 12/30/24 22:01 Temperature Temperature Source Pulse Rate 95 H 91 H 94 H Pulse Rate from SpO2 Sensor 95 H 91 H 93 H Respiratory Rate 14 13 20 Respiratory Effort / Characteristics Respiratory Depth Respiratory Pattern Blood Pressure 138/86 168/79 H 146/51 H Blood Pressure Mean 103 108 66 Pulse Oximetry 99 95 96 Oxygen Delivery Method Sepsis Recent Fever Within 48 Hours Sepsis New/Unexplained Change in Mental Status Sepsis Action Taken by Nursing Laboratory Data 12/30/24 20:25 12/30/24 20:25 Lab Results 12/30/24 12/30/24 12/30/24 Range/Units 20:11 20:25 20:30 WBC 11.86 H (4.8-10.8) K/ul RBC 4.69 L (4.70-6.10) M/uL Hgb 15.2 (14.0-18.0) g/dl POC Hgb 16.0 (14.0-18.0) g/dl Hct 42.8 (42.0-52.0) % POC Hct 47 (42-52) % MCV 91.3 (80.0-100.0) fL MCH 32.4 (25.0-34.0) pg MCHC 35.5 (32.0-36.0) g/dL RDW Std Deviation 38.9 (36.4-46.3) fL RDW Coeff of Nazia 11.6 (11.5-14.5) % Plt Count 280 (130-400) K/uL MPV 9.0 L (9.4-12.4) fL Immature Gran % (Auto) 0.5 % Neut % (Auto) 70.2 % Lymph % (Auto) 17.0 % Emmet % (Auto) 11.5 % Eos % (Auto) 0.6 % Baso % (Auto) 0.2 % Neut # (Auto) 8.33 H (1.40-6.50) K/uL Lymph # (Auto) 2.02 (1.20-3.40) K/uL Emmet # (Auto) 1.36 H (0.11-0.59) K/uL Eos # (Auto) 0.07 (0.00-0.50) K/uL Baso # (Auto) 0.02 (0.00-0.20) K/uL Immature Gran # (Auto) 0.06 (0.01-0.20) K/uL VBG pH 7.42 H (7.36-7.41) VBG pCO2 37 L (38-50) mmHg VBG pO2 49 mmHg VBG HCO3 24 mmol/L VBG O2 Saturation 85.5 % VBG Base Excess -0.2 mEq/L POC Sodium 127 L (135-144) mmol/L Sodium 124 L (136-145) mmol/L POC Potassium 3.7 (3.3-5.0) mmol/L Potassium 3.8 (3.5-5.1) mmol/L POC Chloride 93 L (101-112) mmol/L Chloride 92 L (98-107) mmol/L Carbon Dioxide 27 (21-32) mmol/L POC Total CO2 24 (24-31) mmol/L Anion Gap 5 (3-11) POC Anion Gap 15.0 L (16-25) mmol/L POC BUN 16 (7-18) mg/dl BUN 15 (6-23) mg/dl Creatinine 0.66 (0.6-1.4) mg/dl POC Creatinine 0.6 (0.6-1.3) mg/dl Est Cr Clr Drug Dosing 106.8 ml/min eGFR 97.81 BUN/Creatinine Ratio 22.7 H (10-20) Glucose 270 H (70-99(Fasting)) mg/dl POC Glucose 260 H (70-99) mg/dl POC Glucose (other) 269 H (70-99) mg/dl Calcium 8.8 (8.6-10.3) mg/dl POC Ioniz Calcium Jose Alejandro 1.11 L (1.12-1.32) mmol/l Total Bilirubin 0.9 (0.2-1.0) mg/dl AST 21 (13-39) U/L ALT 16 (7-52) U/L Alkaline Phosphatase 61 (34-104) U/L Total Protein 6.9 (6.0-8.3) gm/dl Albumin 4.2 (3.4-5.0) gm/dl Globulin 2.7 (2.5-4.0) gm/dl Albumin/Globulin Ratio 1.6 (0.9-2) Lipase 10 L (11-82) U/L Urine Color Urine Appearance (Clear) Urine pH (4.5-7.5) Ur Specific [place] (1.000-1.030) Urine Protein (Negative) Urine Glucose (UA) (Negative) Urine Ketones (Negative) Urine Blood (Negative) Urine Nitrite (Negative) Urine Bilirubin (Negative) Urine Urobilinogen (Negative) Ur Leukocyte Esterase (Negative) Urine WBC (Auto) (0-5) /hpf Urine RBC (Auto) (0-2) /hpf U Hyaline Cast (Auto) (0-2) /lpf U Epithel Cells (Auto) (0-2) /hpf Urine Bacteria (Auto) (None Seen) 12/30/24 Range/Units 20:50 WBC (4.8-10.8) K/ul RBC (4.70-6.10) M/uL Hgb (14.0-18.0) g/dl POC Hgb (14.0-18.0) g/dl Hct (42.0-52.0) % POC Hct (42-52) % MCV (80.0-100.0) fL MCH (25.0-34.0) pg MCHC (32.0-36.0) g/dL RDW Std Deviation (36.4-46.3) fL RDW Coeff of Nazia (11.5-14.5) % Plt Count (130-400) K/uL MPV (9.4-12.4) fL Immature Gran % (Auto) % Neut % (Auto) % Lymph % (Auto) % Emmet % (Auto) % Eos % (Auto) % Baso % (Auto) % Neut # (Auto) (1.40-6.50) K/uL Lymph # (Auto) (1.20-3.40) K/uL Emmet # (Auto) (0.11-0.59) K/uL Eos # (Auto) (0.00-0.50) K/uL Baso # (Auto) (0.00-0.20) K/uL Immature Gran # (Auto) (0.01-0.20) K/uL VBG pH (7.36-7.41) VBG pCO2 (38-50) mmHg VBG pO2 mmHg VBG HCO3 mmol/L VBG O2 Saturation % VBG Base Excess mEq/L POC Sodium (135-144) mmol/L Sodium (136-145) mmol/L POC Potassium (3.3-5.0) mmol/L Potassium (3.5-5.1) mmol/L POC Chloride (101-112) mmol/L Chloride (98-107) mmol/L Carbon Dioxide (21-32) mmol/L POC Total CO2 (24-31) mmol/L Anion Gap (3-11) POC Anion Gap (16-25) mmol/L POC BUN (7-18) mg/dl BUN (6-23) mg/dl Creatinine (0.6-1.4) mg/dl POC Creatinine (0.6-1.3) mg/dl Est Cr Clr Drug Dosing ml/min eGFR BUN/Creatinine Ratio (10-20) Glucose (70-99(Fasting)) mg/dl POC Glucose (70-99) mg/dl POC Glucose (other) (70-99) mg/dl Calcium (8.6-10.3) mg/dl POC Ioniz Calcium Jose Alejandro (1.12-1.32) mmol/l Total Bilirubin (0.2-1.0) mg/dl AST (13-39) U/L ALT (7-52) U/L Alkaline Phosphatase (34-104) U/L Total Protein (6.0-8.3) gm/dl Albumin (3.4-5.0) gm/dl Globulin (2.5-4.0) gm/dl Albumin/Globulin Ratio (0.9-2) Lipase (11-82) U/L Urine Color Yellow Urine Appearance Clear (Clear) Urine pH 7.0 (4.5-7.5) Ur Specific [place] 1.019 (1.000-1.030) Urine Protein Trace H (Negative) Urine Glucose (UA) 2+ H (Negative) Urine Ketones 2+ H (Negative) Urine Blood Negative (Negative) Urine Nitrite Negative (Negative) Urine Bilirubin Negative (Negative) Urine Urobilinogen Negative (Negative) Ur Leukocyte Esterase Negative (Negative) Urine WBC (Auto) 0-5 (0-5) /hpf Urine RBC (Auto) 3-5 H (0-2) /hpf U Hyaline Cast (Auto) 0-2 (0-2) /lpf U Epithel Cells (Auto) 0-2 (0-2) /hpf Urine Bacteria (Auto) None Seen (None Seen) Administered Medications Sodium Chloride (Nss) 1,000 mls @ 125 mls/hr IV .Q8H ISABEL Stop: 12/31/24 22:44 Last Admin: 12/30/24 22:56 Dose: 125 mls/hr Documented By: GONZALO Discontinued Medications Sodium Chloride (Nss) 1,000 mls @ 999 mls/hr IV .Q1H1M ONE Stop: 12/30/24 21:21 Last Infusion: 12/30/24 21:53 Dose: Infused Documented By: Admin: 12/30/24 20:31 Dose: 999 mls/hr Documented By: GONZALO Insulin Glargine (Lantus Per Unit Charge) 22 units SQ NOW STA Stop: 12/30/24 22:37 Last Admin: 12/30/24 22:46 Dose: 22 units Documented By: GONZALO Co-signed By: SONY Ondansetron HCl (Ondansetron Inj 2 Mg/Ml 2 Ml Vial) 4 mg IV NOW STA Stop: 12/30/24 20:42 Last Admin: 12/30/24 20:52 Dose: 4 mg Documented By: DENISE Imaging Data Radiologist's Impression: Chest X-Ray 12/30/24 20:41 Exam(s): XR CXR 1 VIEW EXAM: XR Chest, 1 View CLINICAL HISTORY: Reason for exam: weakness. TECHNIQUE: Frontal view of the chest. COMPARISON: 11/03/24 FINDINGS: Lungs: Stable left hemidiaphragm elevation. No airspace consolidation. Pleural space: No pleural effusion or pneumothorax. Heart: No cardiomegaly or pulmonary vascular congestion. Bones/joints: No acute fracture. No dislocation. IMPRESSION: No acute findings in the chest. Electronically signed by: Hernan Howard M.D. 12/30/24 22:[address] 12/30/24 20:41 Exam(s): CT HEAD Without Contrast EXAM: CT Head Without Intravenous Contrast CLINICAL HISTORY: Reason for exam: dizzy. TECHNIQUE: Axial computed tomography images of the head/brain without intravenous contrast. CTDI is 37.51 mGy and DLP is 624.41 mGy-cm. Automated exposure control was utilized for the study. A dose lowering technique was utilized adhering to the principles of ALARA. COMPARISON: 11/03/24 FINDINGS: Brain: Stable meningioma along the posterior right cerebellar hemisphere. Generalized parenchymal volume loss. Periventricular and deep cerebral white matter hypoattenuation compatible with chronic small vessel ischemic change. Chronic deep white matter infarct left centrum semiovale/ray radiata. Chronic left thalamic/internal capsule lacunar infarct. No territorial loss of lopez-white matter differentiation. No hemorrhage or midline shift. Ventricles: Ex vacuo enlargement left lateral ventricle. No hydrocephalus. Bones/joints: No acute fracture. Soft tissues: Unremarkable. Vasculature: Intracranial atherosclerosis. Sinuses: Unremarkable as visualized. Mastoid air cells: No significant mastoid effusion. Orbits: Lens replacements. IMPRESSION: No acute intracranial process. Electronically signed by: Hernan Howard M.D. 12/30/24 22:19 PM Discharge Plan Visit Data Chief Complaint: Hyperglycemia Stated Complaint: HIGH BLOOD SUGAR,CONFUSION ED Provider: Charly Jaffe Discharge Problem: Hyponatremia, Weakness, Hyperglycemia Forms Stand Alone Forms: [facility] Integration Management Prescriptions Prescriptions: No Action (DME) Dexcom G7 Sensor Device See Rx Instructions .Route Qty: 3 11RF Rx Instructions: change sensor every 10 days (DME) Omnipod 5 G6 Intro Kit (Gen 5) Cartridge See Rx Instructions .ROUTE .MEDSUPPLY Qty: 1 0RF Rx Instructions: change pod every 3 days (DME) Omnipod 5 G6 Pods (Gen 5) Cartridge See Rx Instructions .ROUTE .MEDSUPPLY Qty: 10 11RF Rx Instructions: change pod every 3 days atorvastatin 80 mg tablet 80 mg PO DAILY 90 Days Qty: 90 3RF amitriptyline 25 mg tablet 25 mg PO HS Qty: 90 3RF atenolol 25 mg tablet 25 mg PO DAILY Qty: 90 3RF gabapentin 800 mg tablet 800 mg PO TID Qty: 180 3RF docusate sodium 100 mg tablet 100 mg PO BID Qty: 180 3RF mirabegron [Myrbetriq] 50 mg tablet extended release 24 hr 50 mg PO DAILY Qty: 90 3RF insulin glargine [Lantus Solostar U-100 Insulin] 100 unit/mL (3 mL) insulin pen 22 unit subcut QPM Qty: 15 5RF insulin lispro [Humalog KwikPen Insulin] 100 unit/mL insulin pen 8 - 9 sliding scale dose SUBCUT UD MDD TDD 30 units Rx Instructions: subcutaneously; IF BSG 80-125, Inject 8 UNITS W/ MEALS (9 units if having dessert); HOLD IF <80. AND ADD 1 UNIT FOR EVERY 25 RISE IN SUGAR IF >125 for SS. benazepril 10 mg tablet 10 mg PO DAILY Referrals Referrals: Elva Freed DO [Primary Care Provider] -
[2024-12-30] MEDS: ONDANSETRON INJ 2 MG/ML 2 ML VIAL IV STA (20:52)
[2024-12-30 20:55] LABS: Albumin Globulin Ratio 1.6 (0.9-2); Albumin Level 4.2 gm/dl (3.4-5.0); BUN Creatinine Ratio 22.7 (10-20); Bilirubin,Total 0.9 mg/dl (0.2-1.0); Calcium 8.8 mg/dl (8.6-10.3); Creatinine Clr Calc Pharmacy 106.8 ml/min; Globulin 2.7 gm/dl (2.5-4.0); Potassium 3.8 mmol/L (3.5-5.1); Total Protein 6.9 gm/dl (6.0-8.3)
[2024-12-30 21:19] LABS: Appearance Urine Clear (Clear); Bacteria Urine Automated None Seen (None Seen); Bilirubin Urine Negative (Negative); Blood Urine Negative (Negative); Cast Urine Automated 0-2 /lpf (0-2); Color Urine Yellow; Epithelial Cell Urine Auto 0-2 /hpf (0-2); Glucose Urine UA 2+ (Negative); Ketones Urine 2+ (Negative); Leukocyte Esterase Urine Negative (Negative); Nitrite Urine Negative (Negative); Protein Urine Trace (Negative); Specific Gravity Urine 1.019 (1.000-1.030); Urobilinogen Urine Negative (Negative); WBC Urine Automated 0-5 /hpf (0-5)
--- NOTE | 2024-12-30 21:43 | History & Physical Report ---
Date of Service December 30, 2024 Assessment & Plan (1) Ambulatory dysfunction: (2) Hyperglycemia: (3) Type 1 diabetes mellitus: (4) Hyponatremia: Plan 74-year-old male PMHx T1DM, prior CVA with right-sided residual deficit, chronic pain syndrome, B12 deficiency, urinary frequency, and memory impairment presenting for 3 to 4 days worth of feeling weak with abnormal sugars. ED evaluation reveals leukocytosis 11.86, stable H&H; VBG's with pH 7.42, [id number]; CMP sodium 124, chloride 92, no AG, BUN/creatinine ratio 22.7, initial glucose 270, then 260, then 269; lipase 10; UA with presence of glucose and ketones, no infection; CXR and head CT w/o acute findings; EKG sinus tach at 101 bpm.; Provided with 1L NSS and ondansetron 4 mg IV in ED. #Ambulatory dysfunction Concern for unsteadiness/wobbliness the day of arrival, slightly worse from baseline, "cannot find footing"; h/o prior hemorrhagic CVA ~ 20 years ago, does follow with neurology (most recent visit 11/21/2024). Recurrent falls per history, uses walker at baseline. No new falls. Also history of intermittent confusion/delirium. Neurologically at baseline. Suspect component of dehydration w/ hyponatremia vs hyperglycemia, low concern for neuro etiology at time of admission. - Leukocytosis on admission but no clear source of such - unlikely infectious etiology combined w/ findings not consistent with infection on UA/CXR; pending procal -- deferred abx at time of admission; adjust as appropriate - CBC am - CT head without acute findings - Fall precautions - PT/OT ordered - appreciate assistance #Hyperglycemia/T1DM H/o DMT1, h/o DKA; on Insulin glargine 22U nightly, insulin lispro 8-9 U w/ meals (SSI); Dexcom in place; injects own insulin. Follows with endo, most recent diabetes visit 10/17/2024. Does not appear to be in [place] DKA at time of admission, but with clear poor glucose control. Poor intake per patient, recent travel for holidays. - Glucose on arrival 270 -> 260 -> 296 - CBC w/ leukocytosis 11.86 but no infectious symptoms; CMP Cl 91, CO2 27, no AG; Mg pending - Na 124, falsely appears low due to elevation in glucose, calculated sodium 128 -- also with chronic hyponatremia and recent poor oral intake - VBGs pH 7.42, pCO2 37 - UA with ketones + glucose - Most recent A1c (07/2024) @ 7.6% - Provided pt with evening dose of lantus 22U --> Lantus 12U BID while inpatient - SSI with target BSG range 110-140mg/dL, CF 30, carb ratio 10 - BSG ACHS - Pharm glycemic management consult placed, appreciate assistance - Adjust regimen as needed #Hyponatremia Likely secondary to poor oral intake/elevated sugars. Some "wobbliness"/weakness day of arrival, no new neurological deficits associated with such. - Na 124, glucose 270; corrected 128 - Serum osmol, urine Na and urine osmol pending - NSS @ 125 mL/hr (echo EF 55-60%, G1DD) #HTN- Atenolol, benazepril - continue #HLD- Atorvastatin - continue #H/o hemorrhagic CVA w/ residual deficits (R)- ~ 1999; lives in personal care independent living; follows with neurology #Constipation- Docusate - continue #Chronic pain syndrome- Amitriptyline, gabapentin - continue #Urinary incontinence- Myrbetriq - continue Dispo: Admit, med/tele VTE Prophylaxis: SCDs This document was dictated utilizing [employer]. Please excuse any grammatical errors that may be secondary to use of this software. Admission and Anticipated Discharge Date Admission Date: 12/30/2024 History of Present Illness Chief Complaint: Weakness Primary Care Provider: Elva Freed DO 74-year-old male PMHx T1DM, prior CVA with right-sided residual deficit, chronic pain syndrome, B12 deficiency, urinary frequency, and memory impairment presenting for 3 to 4 days worth of feeling weak with abnormal sugars. States that on the day of arrival he became shaky and wobbly have an episode of nausea with some confusion reported by son. States that this is normally how his episodes of DKA start. He does admit that his sugars throughout the past week have been ranging from 200-500. States that the nausea did have a little bit of phlegm type contents expelled, but he did not have severe abdominal pain throughout this time. He was rather fatigued on the day of arrival and napped most of the day, but had been traveling since 4 days [employer]. Patient does have history prior for CVA, with residual effects on R side (R arm without movement, R leg in brace, decreased strength/plantarflexion/dorsiflexion). States that he felt just off balance and also admits that he has not been drinking a lot of fluid recently. He was concerned because his sugars were ranging into higher numbers than normal. Patient son states that the off-balance problem appeared to be that he was having difficulties with finding his footing rather than complete instability when walking. At one point he did become slightly unstable and almost fell but did not. Patient reports no recent falls. Patient has chronic back pain which has not worsened. Overall denying chest pain, shortness of breath, palpitations, abdominal pain, D/C, numbness/tingling, specified weakness, URI symptoms, fever/chills, or LUTS. He did take a few extra doses of insulin today trying to manage his sugars. Unclear why his sugars are elevated but has not been drinking enough person. ED evaluation reveals leukocytosis 11.86, stable H&H; VBG's with pH 7.42, [id number]; CMP sodium 124, chloride 92, no AG, BUN/creatinine ratio 22.7, initial glucose 270, then 260, then 269; lipase 10; UA with presence of glucose and ketones, no infection; CXR and head CT without acute findings; EKG sinus tach at 101 bpm.; Provided with 1L NSS and ondansetron 4 mg IV in ED. Please see Dr. Avery's attestation for adjustments/additions to treatment plan. Allergies Allergy/AdvReac Type Severity Reaction Status Date / Time terbinafine [From Lamisil] Allergy Intermediate Rash Verified 12/30/24 21:58 Home Medications Medication Instructions Recorded Confirmed Type blood-glucose sensor (Dexcom G7 #3 ea 05/09/24 10/17/24 Rx Sensor device) insulin pump cart,automated,BT #10 ea 05/21/24 10/17/24 Rx (Omnipod 5 G6 Pods (Gen 5) subcutaneous cartridge) insulin pump cartridge,automated #1 ea 05/21/24 10/17/24 Rx dose,BT with controller subcutaneous (Omnipod 5 G6 Intro Kit (Gen 5) subcutaneous cartridge with controller) atorvastatin 80 mg tablet 80 mg PO DAILY 90 days #90 tabs 07/23/24 12/30/24 Rx amitriptyline 25 mg tablet 25 mg PO HS #90 tabs 10/17/24 12/30/24 Rx atenolol 25 mg tablet 25 mg PO DAILY #90 tabs 10/17/24 12/30/24 Rx docusate sodium 100 mg tablet 100 mg PO BID #180 tabs 10/17/24 12/30/24 Rx gabapentin 800 mg tablet 800 mg PO TID #180 tabs 10/17/24 12/30/24 Rx mirabegron 50 mg tablet,extended 50 mg PO DAILY #90 tabs 10/17/24 12/30/24 Rx release 24 hr (Myrbetriq) insulin glargine 100 unit/mL (3 22 unit (0.22 mL) subcut QPM #15 mL 10/25/24 12/30/24 Rx mL) subcutaneous pen (Lantus Solostar U-100 Insulin) insulin lispro 100 unit/mL 8 - 9 sliding scale dose subcut UD 11/03/24 12/30/24 History subcutaneous pen (Humalog KwikPen (U-100) Insulin) benazepril 10 mg tablet 10 mg PO DAILY 12/30/24 12/30/24 History Past Med/Surg History Problem List (Updated 12/30/24 @ 23:34 by Bob Ibrahim PA-C) Ambulatory dysfunction Hyperglycemia (Acute) Weakness (Acute) Mild cognitive impairment Urinary incontinence Neuropathy Chronic pain syndrome BMI 31.0-31.9,adult Hyponatremia (Acute) Type 1 diabetes mellitus History of hemorrhagic cerebrovascular accident (CVA) with residual deficit (Acute) Recurrent falls (Acute) Medical History DKA (diabetic ketoacidosis) Closed supracondylar fracture of right elbow Pneumonia DKA (diabetic ketoacidosis) Metabolic encephalopathy Hyperlipidemia Hypertension History of stroke with residual deficit Hemorrhagic cerebrovascular accident (CVA) Surgical History H/O tooth extraction History of cataract surgery H/O colonoscopy Family History Grandmother (Maternal) Heart disease Father Pancreatic cancer Mother Emphysema lung Denies family history of Ovarian cancer Prostate cancer Breast cancer Colorectal cancer Social History Smoking Status: Former smoker Tobacco Type: Cigarettes Age Started Using Tobacco: 17; Age Quit Using Tobacco: 49; packs per day: 0.25; Second Hand Exposure: No; Do You Dip or Chew Tobacco: No; Hx Alcohol Use: Yes Alcohol type: wine Hx Substance Use: No Preferred Language: Nepalese Communication Ability: Effective Communication Ability Comment: aphasia, confusion Author'S Agent Required: No Beliefs That Will Affect Care: None marital status: / Current Living Situation: Personal Care Facility Current Living Situation Comment: [facility] current occupational status: retired Other Information That Helps Us Care for You: No Feels Safe at Home: Yes Safety Concerns: Feels Safe At This Time Childhood Exposure to Second-Hand Smoke: Yes Dental Care, Regularly: Yes Physical Activity Frequency: 3-4 Times per Week Seatbelt Use: always Sunscreen Use: No Assistive Devices: Brace/Splint/Immobilizer, Cane and Glasses Review of Systems Review of Systems: All systems reviewed & are unremarkable except as noted in Subjective Physical Exam Physical Exam: General: No acute distress Skin: Warm and dry Head: Normocephalic, atraumatic Eyes: PERRL, conjunctivae clear, sclera non-icteric ENT: External ear and ear canal without swelling; nose atraumatic; good dentition, tongue normal appearance, pharynx normal, slightly dry Neck: Supple, no LAD Cardio: RRR, no M/G/R, S1 and S2 normal Resp: No respiratory distress, Lungs CTA in all lobes bilaterally, no wheezes, rales, or rhonchi Abdomen: Soft, symmetric, nontender; No masses or hepatosplenomegaly; Bowel sounds normoactive ; Dexcom on abdomen MSK: No deformities; pulses palpable and equal; no edema; no midline tenderness; no CVA tenderness Neuro: Some dysarthria (at baseline), slow w/ word finding II- PERRL, no VF deficits III, IV, - EOMs intact, no deviation, no nystagmus V- Normal sensation in all locations VII- No asymmetry, no nasolabial fold flattening VIII- Normal hearing to speech IX, X- Normal palatal elevation, no ulnar deviation XI- 5/5 head turn + shoulder shrug bilaterally XII- Grossly midline tongue protrusion, mild deviation to R Motor: LUE 5/5 strength, LLE 5/5 strength; RUE paralysis, RLE in brace, 3/5 strength with decreased plantar/dorsiflexion Reflexes: ~ 2 throughout, no clonus Sensory: Baseline sensation throughout Coordination: Normal [id number] (L), no tremor Gait: Unable to asses Psych: A+O x 3; Appropriate mood and affect; good judgement and insight. Son present in room at time of visit. Results & Data Results & Data Vital Signs (Past 12 Hours) Vital Signs Temp Pulse Resp BP Pulse Ox O2 Del Method 12/30/24 20:32 98 Room Air 12/30/24 20:30 104 H 12/30/24 20:07 37.1 C 111 H 20 151/72 H 94 Room Air Laboratory Results 12/30/24 12/30/24 12/30/24 20:50 20:30 20:25 WBC 11.86 H RBC 4.69 L Hgb 15.2 POC Hgb 16.0 Hct 42.8 POC Hct 47 MCV 91.3 MCH 32.4 MCHC 35.5 RDW Std Deviation 38.9 RDW Coeff of Nazia 11.6 Plt Count 280 MPV 9.0 L Immature Gran % (Auto) 0.5 Neut % (Auto) 70.2 Lymph % (Auto) 17.0 [place] % (Auto) 11.5 Eos % (Auto) 0.6 Baso % (Auto) 0.2 Neut # (Auto) 8.33 H Lymph # (Auto) 2.02 [place] # (Auto) 1.36 H Eos # (Auto) 0.07 Baso # (Auto) 0.02 Immature Gran # (Auto) 0.06 VBG pH 7.42 H VBG pCO2 37 L VBG pO2 49 VBG HCO3 24 VBG O2 Saturation 85.5 VBG Base Excess -0.2 POC Sodium 127 L Sodium 124 L POC Potassium 3.7 Potassium 3.8 POC Chloride 93 L Chloride 92 L Carbon Dioxide 27 POC Total CO2 24 Anion Gap 5 POC Anion Gap 15.0 L POC BUN 16 BUN 15 Creatinine 0.66 POC Creatinine 0.6 Est Cr Clr Drug Dosing 106.8 eGFR 97.81 BUN/Creatinine Ratio 22.7 H Glucose 270 H POC Glucose POC Glucose (other) 269 H Calcium 8.8 POC Ioniz Calcium Jose Alejandro 1.11 L Total Bilirubin 0.9 AST 21 ALT 16 Alkaline Phosphatase 61 Total Protein 6.9 Albumin 4.2 Globulin 2.7 Albumin/Globulin Ratio 1.6 Lipase 10 L Urine Color Yellow Urine Appearance Clear Urine pH 7.0 Ur Specific [place] 1.019 Urine Protein Trace H Urine Glucose (UA) 2+ H Urine Ketones 2+ H Urine Blood Negative Urine Nitrite Negative Urine Bilirubin Negative Urine Urobilinogen Negative Ur Leukocyte Esterase Negative Urine WBC (Auto) 0-5 Urine RBC (Auto) 3-5 H U Hyaline Cast (Auto) 0-2 U Epithel Cells (Auto) 0-2 Urine Bacteria (Auto) None Seen 12/30/24 20:11 WBC RBC Hgb POC Hgb Hct POC Hct MCV MCH MCHC RDW Std Deviation RDW Coeff of Nazia Plt Count MPV Immature Gran % (Auto) Neut % (Auto) Lymph % (Auto) [place] % (Auto) Eos % (Auto) Baso % (Auto) Neut # (Auto) Lymph # (Auto) [place] # (Auto) Eos # (Auto) Baso # (Auto) Immature Gran # (Auto) VBG pH VBG pCO2 VBG pO2 VBG HCO3 VBG O2 Saturation VBG Base Excess POC Sodium Sodium POC Potassium Potassium POC Chloride Chloride Carbon Dioxide POC Total CO2 Anion Gap POC Anion Gap POC BUN BUN Creatinine POC Creatinine Est Cr Clr Drug Dosing eGFR BUN/Creatinine Ratio Glucose POC Glucose 260 H POC Glucose (other) Calcium POC Ioniz Calcium Jose Alejandro Total Bilirubin AST ALT Alkaline Phosphatase Total Protein Albumin Globulin Albumin/Globulin Ratio Lipase Urine Color Urine Appearance Urine pH Ur Specific [place] Urine Protein Urine Glucose (UA) Urine Ketones Urine Blood Urine Nitrite Urine Bilirubin Urine Urobilinogen Ur Leukocyte Esterase Urine WBC (Auto) Urine RBC (Auto) U Hyaline Cast (Auto) U Epithel Cells (Auto) Urine Bacteria (Auto) Diagnostic Findings Chest X-Ray 12/30/24 20:41 Exam(s): XR CXR 1 VIEW EXAM: XR Chest, 1 View CLINICAL HISTORY: Reason for exam: weakness. TECHNIQUE: Frontal view of the chest. COMPARISON: 11/03/24 FINDINGS: Lungs: Stable left hemidiaphragm elevation. No airspace consolidation. Pleural space: No pleural effusion or pneumothorax. Heart: No cardiomegaly or pulmonary vascular congestion. Bones/joints: No acute fracture. No dislocation. IMPRESSION: No acute findings in the chest. Electronically signed by: Hernan Howard M.D. 12/30/24 22:[address] 12/30/24 20:41 Exam(s): CT HEAD Without Contrast EXAM: CT Head Without Intravenous Contrast CLINICAL HISTORY: Reason for exam: dizzy. TECHNIQUE: Axial computed tomography images of the head/brain without intravenous contrast. CTDI is 37.51 mGy and DLP is 624.41 mGy-cm. Automated exposure control was utilized for the study. A dose lowering technique was utilized adhering to the principles of ALARA. COMPARISON: 11/03/24 FINDINGS: Brain: Stable meningioma along the posterior right cerebellar hemisphere. Generalized parenchymal volume loss. Periventricular and deep cerebral white matter hypoattenuation compatible with chronic small vessel ischemic change. Chronic deep white matter infarct left centrum semiovale/ray radiata. Chronic left thalamic/internal capsule lacunar infarct. No territorial loss of lopez-white matter differentiation. No hemorrhage or midline shift. Ventricles: Ex vacuo enlargement left lateral ventricle. No hydrocephalus. Bones/joints: No acute fracture. Soft tissues: Unremarkable. Vasculature: Intracranial atherosclerosis. Sinuses: Unremarkable as visualized. Mastoid air cells: No significant mastoid effusion. Orbits: Lens replacements. IMPRESSION: No acute intracranial process. Electronically signed by: Hernan Howard M.D. 12/30/24 22:19 PM Medications Administered 1L NSS Ondansetron 4 mg IV ECG Additional Comments: Sinus tachycardia 101 bpm, AK 204, QRS 94, QT/QTc 330/433, PRT 46/-9/63 Code Status & VTE Plan Code Status Full Supervising Physician Co-Signing Physician Notes I personally saw and examined the patient. I independently reviewed the labs, imaging, problem list, medication list, past medical history and family history. I verified all [place] points and agree with Bob Ibrahim PA-C with the following exceptions and/or additions: 74 year old male presents to the ER with hyperglycemia and feeling more wobbly and shaking O/E HS RRR, no murmurs, Chest CTAB, Abdo SNT A/P Hyponatremia - corrected sodium 128, urine osm/Na pending. Suspect dehydration with worse control of his glucose levels. Start on NSS overnight and repeat BMP in AM. PG Care Time/CCT Total # of Minutes Spent Total Time Spent with Patient: Total time spent is greater than 50% in coordination of care (as documented) at patient's floor/unit and/or counseling patient: Coding Level of Care Code 32824 INT INP/OBS CARE 3/75MIN Diagnoses Ambulatory dysfunction R26.2 Hyperglycemia R73.9 Type 1 diabetes mellitus E10.9 Hyponatremia E87.1
--- NOTE | 2024-12-30 22:20 | CT Scan Report ---
Exam(s): CT HEAD Without Contrast EXAM: CT Head Without Intravenous Contrast CLINICAL HISTORY: Reason for exam: dizzy. TECHNIQUE: Axial computed tomography images of the head/brain without intravenous contrast. CTDI is 37.51 mGy and DLP is 624.41 mGy-cm. Automated exposure control was utilized for the study. A dose lowering technique was utilized adhering to the principles of ALARA. COMPARISON: 11/03/24 FINDINGS: Brain: Stable meningioma along the posterior right cerebellar hemisphere. Generalized parenchymal volume loss. Periventricular and deep cerebral white matter hypoattenuation compatible with chronic small vessel ischemic change. Chronic deep white matter infarct left centrum semiovale/ray radiata. Chronic left thalamic/internal capsule lacunar infarct. No territorial loss of lopez-white matter differentiation. No hemorrhage or midline shift. Ventricles: Ex vacuo enlargement left lateral ventricle. No hydrocephalus. Bones/joints: No acute fracture. Soft tissues: Unremarkable. Vasculature: Intracranial atherosclerosis. Sinuses: Unremarkable as visualized. Mastoid air cells: No significant mastoid effusion. Orbits: Lens replacements. IMPRESSION: No acute intracranial process. Electronically signed by: Hernan Howard M.D. 12/30/24 22:19 PM
[2024-12-30] MEDS: LANTUS PER UNIT CHARGE SQ STA (22:46)
[2024-12-30] MEDS: SODIUM CHLORIDE 0.9% 1,000 ML IV SCH (22:56)
--- NOTE | 2024-12-30 22:56 | XRay Report ---
Exam(s): XR CXR 1 VIEW EXAM: XR Chest, 1 View CLINICAL HISTORY: Reason for exam: weakness. TECHNIQUE: Frontal view of the chest. COMPARISON: 11/03/24 FINDINGS: Lungs: Stable left hemidiaphragm elevation. No airspace consolidation. Pleural space: No pleural effusion or pneumothorax. Heart: No cardiomegaly or pulmonary vascular congestion. Bones/joints: No acute fracture. No dislocation. IMPRESSION: No acute findings in the chest. Electronically signed by: Hernan Howard M.D. 12/30/24 22:55 PM
[2024-12-31 00:05] LABS: Magnesium 1.9 mg/dl (1.7-2.4)
[2024-12-31] MEDS ORDERED: POLYETHYLENE (MIRALAX) 17 GM PACK PO PRN (00:12)
[2024-12-31] MEDS ORDERED: MELATONIN 3 MG TAB PO PRN (00:12)
[2024-12-31] MEDS ORDERED: ONDANSETRON INJ 2 MG/ML 2 ML VIAL IV PRN (00:12)
[2024-12-31] MEDS ORDERED: ACETAMINOPHEN 325 MG TAB PO PRN (00:12)
[2024-12-31] MEDS ORDERED: PHARMACY GLYCEMIC MGMT CONSULT PRN (00:12)
[2024-12-31] MEDS ORDERED: CARBOHYDRATES FOR HYPOGLYCEMIA PO PRN (00:12)
[2024-12-31] MEDS ORDERED: GLUCOSE 10 TAB/TUBE PO PRN (00:12)
[2024-12-31] MEDS ORDERED: MAGNESIUM HYDROXIDE SUSP 30 ML UDC PO PRN (00:12)
[2024-12-31] MEDS ORDERED: GLUCAGON FOR INJ 1 MG VIAL SQ PRN (00:12)
[2024-12-31] MEDS ORDERED: GLUCOSE 40% GEL 15 GM TUBE PO PRN (00:12)
[2024-12-31] MEDS ORDERED: DEXTROSE 50% 50 ML SYRINGE IV PRN (00:12)
[2024-12-31] MEDS: INSULIN ASPART PER UNIT CHARGE SC SCH (01:11)
[2024-12-31] MEDS: [UNRECOGNIZED DRUG - REMARK] ONE (01:12)
[2024-12-31 06:29] LABS: Hematocrit (blood only) 39.7 % (42.0-52.0); Hemoglobin 13.8 g/dl (14.0-18.0); Mean Corpuscular Hemoglobin 31.9 pg (25.0-34.0); Mean Corpuscular Hgb Conc 34.8 g/dL (32.0-36.0); Mean Corpuscular Volume 91.9 fL (80.0-100.0); Mean Platelet Volume 8.9 fL (9.4-12.4); Platelet Count 252 K/uL (130-400); RDW Coefficient of Variation 11.5 % (11.5-14.5); RDW Standard Deviation 38.8 fL (36.4-46.3); Red Blood Count 4.32 M/uL (4.70-6.10); White Blood Count 9.09 K/ul (4.8-10.8)
[2024-12-31 06:55] LABS: BUN Creatinine Ratio 18.5 (10-20); Calcium 8.2 mg/dl (8.6-10.3); Creatinine Clr Calc Pharmacy 127.4 ml/min; Potassium 3.4 mmol/L (3.5-5.1)
[2024-12-31] MEDS: POTASSIUM CHLORIDE CRTAB 20 MEQ TABCR PO STA (08:01)
[2024-12-31] MEDS: DOCUSATE SODIUM 100 MG CAP PO SCH (08:01)
[2024-12-31] MEDS: GABAPENTIN 800 MG TAB PO SCH (08:02)
[2024-12-31] MEDS: ENALAPRIL MALEATE 5 MG TAB PO SCH (08:02)
[2024-12-31] MEDS: ATENOLOL 25 MG TABLET PO SCH (08:02)
[2024-12-31] MEDS: VIBEGRON 75 MG TAB PO SCH (08:02)
[2024-12-31] MEDS: ATORVASTATIN 40 MG TAB PO SCH (08:03)
--- NOTE | 2024-12-31 09:05 | Hospitalist Progress Note ---
Date of Service December 31, 2024 Assessment & Plan (1) Ambulatory dysfunction: (2) Hyperglycemia: (3) Type 1 diabetes mellitus: (4) Hyponatremia: Plan 74-year-old male PMHx T1DM, prior CVA with right-sided residual deficit, chronic pain syndrome, B12 deficiency, urinary frequency, and memory impairment presenting for 3 to 4 days worth of feeling weak with abnormal sugars. ED evaluation reveals leukocytosis 11.86, stable H&H; VBG's with pH 7.42, [id number]; CMP sodium 124, chloride 92, no AG, BUN/creatinine ratio 22.7, initial glucose 270, then 260, then 269; lipase 10; UA with presence of glucose and ketones, no infection; CXR and head CT w/o acute findings; EKG sinus tach at 101 bpm.; Provided with 1L NSS and ondansetron 4 mg IV in ED. #Ambulatory dysfunction Concern for unsteadiness/wobbliness the day of arrival, slightly worse from baseline, "cannot find footing"; h/o prior hemorrhagic CVA ~ 20 years ago, does follow with neurology (most recent visit 11/21/2024). Recurrent falls per history, uses walker at baseline. No new falls. Also history of intermittent confusion/delirium. Neurologically at baseline. Suspect component of dehydration w/ hyponatremia vs hyperglycemia, low concern for neuro etiology at time of admission. - Leukocytosis resolved - CT head without acute findings - Fall precautions - PT/OT ordered - recommending rehab, pt declining at this time - May be largely due to dehydration as he continues to improve with IVF #Hyperglycemia/T1DM H/o DMT1, h/o DKA; on Insulin glargine 22U nightly, insulin lispro 8-9 U w/ meals (SSI); Dexcom in place; injects own insulin. Follows with endo, most recent diabetes visit 10/17/2024. Does not appear to be in [place] DKA at time of admission, but with clear poor glucose control. Poor intake per patient, recent travel for holidays. - Glucose improved - CBC w/ leukocytosis 11.86 but no infectious symptoms; CMP Cl 91, CO2 27, no AG; Mg pending - Na 124, falsely appears low due to elevation in glucose, calculated sodium 128 -- also with chronic hyponatremia and recent poor oral intake - VBGs pH 7.42, pCO2 37 - UA with ketones + glucose - Most recent A1c (07/2024) @ 7.6% - Provided pt with evening dose of lantus 22U --> Lantus 12U BID while inpatient - SSI with target BSG range 110-140mg/dL, CF 30, carb ratio 10 - BSG ACHS - Pharm glycemic management consult placed, appreciate assistance - Adjust regimen as needed #Hyponatremia Likely secondary to poor oral intake/elevated sugars. Some "wobbliness"/weakness day of arrival, no new neurological deficits associated with such. Improving NSS @ 125 mL/hr (echo EF 55-60%, G1DD) #HTN- Atenolol, benazepril - continue #HLD- Atorvastatin - continue #H/o hemorrhagic CVA w/ residual deficits (R)- ~ 1999; lives in personal care independent living; follows with neurology #Constipation- Docusate - continue #Chronic pain syndrome- Amitriptyline, gabapentin - continue #Urinary incontinence- Myrbetriq - continue Dispo: Admit, med/tele VTE Prophylaxis: SCDs Admission and Anticipated Discharge Date Admission Date: December 30, 2024 Supervising Physician Co-Signing Physician Notes I personally examined the patient and verified all guardado points of history and exam, discussed case, and agree with decision making with Dr Srinivasan feeling better. Does not quite feel well enough to go back home, but also does not think he would need any SNF stayfeels like by tomorrow he will probably be feeling well enough to go back to personal care. Vitals noted, in general he is awake and alert pleasant no distress. HEENT normocephalic atraumatic mucous membranes moist. Breathing unlabored no accessory muscle use good effort. Skin without rashes, pallor, icterus. Patient seen at the end of physical therapy assessmentwalking with brace, slow, see PT note for added detail. Weaknessfortunately was not DKA as the patient was concerned about, although I do suspect dehydration was at playwhether his sugar control getting worse led to a degree of an osmotic diuresis but not enough to affect DKA physiology, or whether he simply got kind of dehydrated and the illness worsened his glucose controleither way seems to be improving. Encourage p.o. intake. Follow into tomorrow. Hopefully home tomorrow. Otherwise as above. DVT proph ambulation and compression given prior hemorrhagic stroke (fairly mobile so risk/benefit favors holding off on pharmacologic at this time) Subjective Patient seen and evaluated at bedside this morning. No acute events overnight. Resting comfortably without acute complaints. Sodium improving. Hypokalemia this am - repleted Review of Systems Review of Systems: reviewed, per HPI Physical Exam Physical Exam: Constitutional: well-appearing, no acute distress HEENT: NCAT, no conjunctival injection CV: extremities well-perfused, no LE edema Resp: no increased work of breathing GI: nondistended MSK: no gross deformities appreciated Skin: warm, dry, no rash appreciated Neuro: alert, oriented, no focal neurologic deficit appreciated Results & Data Results & Data Vital Signs (Past 12 Hours) Vital Signs Temp Pulse Pulse Resp BP BP Pulse Ox 12/31/24 07:39 36.5 C 98 H 18 181/92 H 94 12/31/24 03:23 36.4 C L 101 H 16 186/81 H 96 12/31/24 01:36 36.7 C 90 18 172/78 H 95 12/31/24 00:12 36.7 C 90 18 172/78 H 95 12/31/24 00:12 12/31/24 00:08 91 H 12/30/24 23:00 84 21 137/83 97 12/30/24 22:30 85 18 177/84 H 99 12/30/24 22:01 94 H 20 146/51 H 96 12/30/24 21:33 91 H 13 168/79 H 95 Pulse Ox O2 Del Method O2 Del Method 12/31/24 07:39 Room Air 12/31/24 03:23 Room Air 12/31/24 01:36 Room Air 12/31/24 00:12 Room Air 12/31/24 00:12 95 Room Air 12/31/24 00:08 12/30/24 23:00 12/30/24 22:30 12/30/24 22:01 12/30/24 21:33 Resident Activity Tracking Resident Involvement: Resident Care Provided Care Provided: Adult Hospital Medicine
[2024-12-31] MEDS: SODIUM CHLOR 0.45% + 20MEQ KCL 20 MEQ/1,000 ML BAG IV SCH (09:32)
--- NOTE | 2024-12-31 14:02 | Pharmacy Report ---
Pharmacy Glycemic Short Note 2 - Date of Service December 31, 2024 - Glycemic Short BSG Results (Last 24 hours): 12/30/24 12/30/24 12/30/24 20:11 20:25 20:30 Glucose 270 H POC Glucose 260 H POC Glucose (other) 269 H 12/31/24 12/31/24 12/31/24 00:06 05:58 08:00 Glucose 120 H POC Glucose 218 H 110 H POC Glucose (other) 12/31/24 11:42 Glucose POC Glucose 234 H POC Glucose (other) OUTPATIENT ANTIDIABETIC REGIMEN: * Lantus 22 units SC daily * Humalog 8-9 units SC TIDM HbA1c: ordered for 01/01/25 ASSESSMENT: * BH is a 74 year old male with T1DM who presented to [facility] ED for evaluation of weakness and hyperglycemia * Blood sugar of 260 mg/dL on presentation, no signs of DKA * Historically, it appears that we have utilized a slight reduction in home dosing of Lantus - will continue with that for now * Diet ordered PLAN FOR INPATIENT GLYCEMIC CONTROL: * Basal insulin * Lantus 18 units SQ HS * Bolus insulin * NovoLog per scale ACHS or Q6hrs while NPO * Goal Range: Low 110 mg/dL - High 160 mg/dL * Correction Factor: 20 mg/dL/unit * Nutritional / Prandial insulin per carb ratio of 1 unit per 7 grams CHO consumed
--- NOTE | 2024-12-31 18:17 | Billing Data ---
Date of Service December 31, 2024 Coding Level of Care Code 79433 SUB INP/OBS CARE
[2024-12-31] MEDS: AMITRIPTYLINE HCL 25 MG TAB PO SCH (21:46)
[2025-01-01] MEDS ORDERED: LANTUS PER UNIT CHARGE SQ ONE (07:30)
--- NOTE | 2025-01-01 07:59 | Hospitalist Progress Note ---
Date of Service January 01, 2025 Assessment & Plan (1) Ambulatory dysfunction: (2) Hyperglycemia: (3) Type 1 diabetes mellitus: (4) Hyponatremia: Plan 74-year-old male PMHx T1DM, prior CVA with right-sided residual deficit, chronic pain syndrome, B12 deficiency, urinary frequency, and memory impairment presenting for 3 to 4 days worth of feeling weak with abnormal sugars. ED evaluation reveals leukocytosis 11.86, stable H&H; VBG's with pH 7.42, [id number]; CMP sodium 124, chloride 92, no AG, BUN/creatinine ratio 22.7, initial glucose 270, then 260, then 269; lipase 10; UA with presence of glucose and ketones, no infection; CXR and head CT w/o acute findings; EKG sinus tach at 101 bpm.; Provided with 1L NSS and ondansetron 4 mg IV in ED. #Ambulatory dysfunction Concern for unsteadiness/wobbliness the day of arrival, slightly worse from baseline, "cannot find footing"; h/o prior hemorrhagic CVA ~ 20 years ago, does follow with neurology (most recent visit 11/21/2024). Recurrent falls per history, uses walker at baseline. No new falls. Also history of intermittent confusion/delirium. Neurologically at baseline. Suspect component of dehydration w/ hyponatremia vs hyperglycemia, low concern for neuro etiology at time of admission. - Leukocytosis resolved - CT head without acute findings - Fall precautions - PT/OT ordered - recommending rehab, pt declining at this time - May be largely due to dehydration as he continues to improve with IVF #Hyperglycemia/T1DM H/o DMT1, h/o DKA; on Insulin glargine 22U nightly, insulin lispro 8-9 U w/ meals (SSI); Dexcom in place; injects own insulin. Follows with endo, most recent diabetes visit 10/17/2024. Does not appear to be in [place] DKA at time of admission, but with clear poor glucose control. Poor intake per patient, recent travel for holidays. - Glucose improved - CBC w/ leukocytosis 11.86 but no infectious symptoms; CMP Cl 91, CO2 27, no AG; Mg pending - Na 124, falsely appears low due to elevation in glucose, calculated sodium 128 -- also with chronic hyponatremia and recent poor oral intake - VBGs pH 7.42, pCO2 37 - UA with ketones + glucose - Most recent A1c (07/2024) @ 7.6% - Provided pt with evening dose of lantus 22U --> Lantus 12U BID while inpatient - SSI with target BSG range 110-140mg/dL, CF 30, carb ratio 10 - BSG ACHS - Pharm glycemic management consult placed, appreciate assistance - Adjust regimen as needed #Hyponatremia Likely secondary to poor oral intake/elevated sugars. Some "wobbliness"/weakness day of arrival, no new neurological deficits associated with such. Improving NSS @ 125 mL/hr (echo EF 55-60%, G1DD) #HTN- Atenolol, benazepril - continue #HLD- Atorvastatin - continue #H/o hemorrhagic CVA w/ residual deficits (R)- ~ 1999; lives in personal care independent living; follows with neurology #Constipation- Docusate - continue #Chronic pain syndrome- Amitriptyline, gabapentin - continue #Urinary incontinence- Myrbetriq - continue Dispo: Admit, med/tele VTE Prophylaxis: SCDs Admission and Anticipated Discharge Date Admission Date: December 30, 2024 Supervising Physician Co-Signing Physician Notes I personally examined the patient and verified all guardado points of history and exam, discussed case, and agree with decision making with Dr Srinivasan feels like he's doing better, feels like he'll be up for going home tomorrow. Vitals noted, in general he is awake and alert pleasant no distress. HEENT normocephalic atraumatic mucous membranes moist. Breathing unlabored no accessory muscle use good effort. Skin without rashes, pallor, icterus. Patient working with therapy when i first saw him, getting around reasonably well. Weaknessfortunately was not DKA as the patient was concerned about, although I do suspect dehydration was at playwhether his sugar control getting worse led to a degree of an osmotic diuresis but not enough to affect DKA physiology, or whether he simply got kind of dehydrated and the illness worsened his glucose controleither way seems to be improved. does not want to go today, but feels like he'll be good for home tomorrow. Otherwise as above. DVT proph ambulation and compression given prior hemorrhagic stroke (fairly mobile so risk/benefit favors holding off on pharmacologic at this time) Subjective Patient seen and evaluated at bedside this morning. No acute events overnight. Resting comfortably without acute complaints. Expresses desire for discharge tomorrow. Review of Systems Review of Systems: reviewed, per HPI Physical Exam Physical Exam: Constitutional: well-appearing, no acute distress HEENT: NCAT, no conjunctival injection CV: extremities well-perfused, no LE edema Resp: no increased work of breathing GI: nondistended MSK: no gross deformities appreciated Skin: warm, dry, no rash appreciated Neuro: R side residual deficit from prior CVA Results & Data Results & Data Vital Signs (Past 12 Hours) Vital Signs Temp Pulse Pulse Resp BP Pulse Ox O2 Del Method 01/01/25 05:50 158/76 H 01/01/25 03:23 89 184/93 H 01/01/25 03:00 36.3 C L 91 H 18 190/92 H 98 Room Air 12/31/24 22:25 36.7 C 74 18 157/72 H 96 Room Air 12/31/24 21:50 74 Resident Activity Tracking Resident Involvement: Resident Care Provided Care Provided: Adult Hospital Medicine
[2025-01-01 08:09] LABS: BUN Creatinine Ratio 18.8 (10-20); Calcium 8.4 mg/dl (8.6-10.3); Creatinine Clr Calc Pharmacy 108.4 ml/min; Potassium 4.5 mmol/L (3.5-5.1)
[2025-01-01 08:53] LABS: Estimated Average Glucose 171 mg/dl; Hemoglobin A1C 7.6 % (4.5-5.6)
[2025-01-01] MEDS: LANTUS PER UNIT CHARGE SQ STA (09:16)
--- NOTE | 2025-01-01 13:11 | Pharmacy Report ---
Pharmacy Glycemic Short Note 2 - Date of Service January 01, 2025 - Glycemic Short BSG Results (Last 24 hours): 12/31/24 12/31/24 01/01/25 17:03 20:12 07:05 Glucose 256 H POC Glucose 95 97 01/01/25 01/01/25 08:04 12:03 Glucose POC Glucose 244 H 251 H OUTPATIENT ANTIDIABETIC REGIMEN: * Lantus 22 units SC daily * Humalog 8-9 units SC TIDM HbA1c: 7.6% (01/01/25) ASSESSMENT: 01/01/25: * Blood sugars ranging 95-234 mg/dL yesterday * Will give basal this morning and continue w/ daily basal in the AM to correlate w/ outpatient regimen * Expect blood sugars to be somewhat elevated today given no basal for ~36 hours, but will hold off on more aggressive changes for now since patient has history of hypoglycemia while inpatient 12/31/24: * BH is a 74 year old male with T1DM who presented to [facility] ED for evaluation of weakness and hyperglycemia * Blood sugar of 260 mg/dL on presentation, no signs of DKA * Historically, it appears that we have utilized a slight reduction in home dosing of Lantus - will continue with that for now * Diet ordered PLAN FOR INPATIENT GLYCEMIC CONTROL: * Basal insulin * Lantus 22 units SC daily * Bolus insulin * NovoLog per scale ACHS or Q6hrs while NPO * Goal Range: Low 110 mg/dL - High 160 mg/dL * Correction Factor: 20 mg/dL/unit at breakfast, lunch, and dinner, 35 mg/dL/unit at bedtime * Nutritional / Prandial insulin per carb ratio of 1 unit per 7 grams CHO consumed w/ breakfast, lunch, and dinner and 1 unit per 11 grams CHO consumed at bedtime
--- NOTE | 2025-01-01 14:49 | Billing Data ---
Date of Service January 01, 2025 Coding Level of Care Code 18135 SUB INP/OBS CARE
[2025-01-01] MEDS: INSULIN ASPART PER UNIT CHARGE SC SCH ×2 (17:55→20:18)
[2025-01-01] MEDS ORDERED: LANTUS PER UNIT CHARGE SQ SCH (21:00)
[2025-01-02 07:18] VITALS: BP 154/79; PULSE 86; RESP 16; TEMP 97.5; O2SAT 93
[2025-01-02] MEDS: LANTUS PER UNIT CHARGE SQ SCH (08:36)
[2025-01-02] MEDS ORDERED: LANTUS PER UNIT CHARGE SQ SCH (09:00)
--- NOTE | 2025-01-02 09:10 | Pharmacy Report ---
Pharmacy Glycemic Short Note 2 - Date of Service January 02, 2025 - Glycemic Short BSG Results (Last 24 hours): 01/01/25 01/01/25 01/01/25 12:03 17:18 20:06 POC Glucose 251 H 116 H 111 H 01/02/25 07:45 POC Glucose 127 H OUTPATIENT ANTIDIABETIC REGIMEN: * Lantus 22 units SC daily * Humalog 8-9 units SC TIDM HbA1c: 7.6% (01/01/25) ASSESSMENT: 01/02/25: * Ana received 50 units of insulin yesterday (22 were basal) * Fasting BSG this AM within goal range, will reduce basal insulin approximately 20% right now to prevent hypoglycemia, will continue to trend, slow adjust ments * Will loosen correction factor with meals, no glycemic stressors noted at this time. 01/01/25: * Blood sugars ranging 95-234 mg/dL yesterday * Will give basal this morning and continue w/ daily basal in the AM to correlate w/ outpatient regimen * Expect blood sugars to be somewhat elevated today given no basal for ~36 hours, but will hold off on more aggressive changes for now since patient h as history of hypoglycemia while inpatient 12/31/24: * BH is a 74 year old male with T1DM who presented to [facility] ED for evaluation of weakness and hyperglycemia * Blood sugar of 260 mg/dL on presentation, no signs of DKA * Historically, it appears that we have utilized a slight reduction in home dosing of Lantus - will continue with that for now * Diet ordered PLAN FOR INPATIENT GLYCEMIC CONTROL: * Basal insulin * Lantus 18 units SC daily * Bolus insulin * NovoLog per scale ACHS or Q6hrs while NPO * Goal Range: Low 110 mg/dL - High 160 mg/dL * Correction Factor: 30 mg/dL/unit at breakfast, lunch, and dinner, 35 mg/dL/unit at bedtime * Nutritional / Prandial insulin per carb ratio of 1 unit per 7 grams CHO consumed w/ breakfast, lunch, and dinner and 1 unit per 11 grams CHO consumed at bedtime
--- NOTE | 2025-01-02 09:39 | Discharge Summary ---
Date of Service January 02, 2025 Admission HPI Per Admitting Provider 74-year-old male PMHx T1DM, prior CVA with right-sided residual deficit, chronic pain syndrome, B12 deficiency, urinary frequency, and memory impairment presenting for 3 to 4 days worth of feeling weak with abnormal sugars. States that on the day of arrival he became shaky and wobbly have an episode of nausea with some confusion reported by son. States that this is normally how his episodes of DKA start. He does admit that his sugars throughout the past week have been ranging from 200-500. States that the nausea did have a little bit of phlegm type contents expelled, but he did not have severe abdominal pain throughout this time. He was rather fatigued on the day of arrival and napped most of the day, but had been traveling since 4 days [employer]. Patient does have history prior for CVA, with residual effects on R side (R arm without movement, R leg in brace, decreased strength/plantarflexion/dorsiflexion). States that he felt just off balance and also admits that he has not been drinking a lot of fluid recently. He was concerned because his sugars were ranging into higher numbers than normal. Patient son states that the off-balance problem appeared to be that he was having difficulties with finding his footing rather than complete instability when walking. At one point he did become slightly unstable and almost fell but did not. Patient reports no recent falls. Patient has chronic back pain which has not worsened. Overall denying chest pain, shortness of breath, palpitations, abdominal pain, D/C, numbness/tingling, specified weakness, URI symptoms, fever/chills, or LUTS. He did take a few extra doses of insulin today trying to manage his sugars. Unclear why his sugars are elevated but has not been drinking enough person. ED evaluation reveals leukocytosis 11.86, stable H&H; VBG's with pH 7.42, [id number]; CMP sodium 124, chloride 92, no AG, BUN/creatinine ratio 22.7, initial glucose 270, then 260, then 269; lipase 10; UA with presence of glucose and ketones, no infection; CXR and head CT without acute findings; EKG sinus tach at 101 bpm.; Provided with 1L NSS and ondansetron 4 mg IV in ED. Please see Dr. Avery's attestation for adjustments/additions to treatment plan. Admission Exam Per Admitting Provider General: No acute distress Skin: Warm and dry Head: Normocephalic, atraumatic Eyes: PERRL, conjunctivae clear, sclera non-icteric ENT: External ear and ear canal without swelling; nose atraumatic; good dentition, tongue normal appearance, pharynx normal, slightly dry Neck: Supple, no LAD Cardio: RRR, no M/G/R, S1 and S2 normal Resp: No respiratory distress, Lungs CTA in all lobes bilaterally, no wheezes, rales, or rhonchi Abdomen: Soft, symmetric, nontender; No masses or hepatosplenomegaly; Bowel sounds normoactive ; Dexcom on abdomen MSK: No deformities; pulses palpable and equal; no edema; no midline tenderness; no CVA tenderness Neuro: Some dysarthria (at baseline), slow w/ word finding II- PERRL, no VF deficits III, IV, - EOMs intact, no deviation, no nystagmus V- Normal sensation in all locations VII- No asymmetry, no nasolabial fold flattening VIII- Normal hearing to speech IX, X- Normal palatal elevation, no ulnar deviation XI- 5/5 head turn + shoulder shrug bilaterally XII- Grossly midline tongue protrusion, mild deviation to R Motor: LUE 5/5 strength, LLE 5/5 strength; RUE paralysis, RLE in brace, 3/5 strength with decreased plantar/dorsiflexion Reflexes: ~ 2 throughout, no clonus Sensory: Baseline sensation throughout Coordination: Normal [id number] (L), no tremor Gait: Unable to asses Psych: A+O x 3; Appropriate mood and affect; good judgement and insight. Principal Diagnosis Weakness Discharge Exam Constitutional: well-appearing, no acute distress HEENT: NCAT, no conjunctival injection CV: extremities well-perfused, no LE edema Resp: no increased work of breathing GI: nondistended MSK: no gross deformities appreciated Skin: warm, dry, no rash appreciated Neuro: R side residual deficit from prior CVA Discharge Data Allergies Allergy/AdvReac Type Severity Reaction Status Date / Time terbinafine [From Lamisil] Allergy Intermediate Rash Verified 12/30/24 21:58 Consultations 12/30/24 21:55 ED Decision to Admit Stat Ordered Studies 12/30/24 20:41 CT head/brain wo con Stat Hospital Course (1) Ambulatory dysfunction: (2) Hyperglycemia: (3) Type 1 diabetes mellitus: (4) Hyponatremia: Plan 74-year-old male PMHx T1DM, prior CVA with right-sided residual deficit, chronic pain syndrome, B12 deficiency, urinary frequency, and memory impairment presenting for 3 to 4 days worth of feeling weak with abnormal sugars. ED evaluation reveals leukocytosis 11.86, stable H&H; VBG's with pH 7.42, CVD320; C MP sodium 124, chloride 92, no AG, BUN/creatinine ratio 22.7, initial glucose 270, then 260, then 269; lipase 10; UA with presence of glucose and ketones, no infection; CXR and head CT w/o acute findings; EKG sinus tach at 101 bpm.; Provided with 1L NSS and ondansetron 4 mg IV in ED. #Ambulatory dysfunction Concern for unsteadiness/wobbliness the day of arrival, slightly worse from baseline, "cannot find footing"; h/o prior hemorrhagic CVA ~ 20 years ago, does follow with neurology (most recent visit 11/21/2024). Recurrent falls per history, uses walker at baseline. No new falls. Also history of intermittent confusion/delirium. Neurologically at baseline. Suspect component of dehydration w/ hyponatremia vs hyperglycemia, low concern for neuro etiology at time of admission. - Leukocytosis resolved - CT head without acute findings - Fall precautions - PT/OT ordered - recommending rehab, pt declining at this time - May be largely due to dehydration, improved with IVF #Hyperglycemia/T1DM H/o DMT1, h/o DKA; on Insulin glargine 22U nightly, insulin lispro 8-9 U w/ meals (SSI); Dexcom in place; injects own insulin. Follows with endo, most recent diabetes visit 10/17/2024. Does not appear to be in elina DKA at time of admission, but with clear poor glucose control. Poor intake per patient, recent travel for holidays. - Glucose improved - CBC w/ leukocytosis 11.86 but no infectious symptoms; CMP Cl 91, CO2 27, no AG; Mg pending - Na 124, falsely appears low due to elevation in glucose, calculated sodium 128 -- also with chronic hyponatremia and recent poor oral intake - VBGs pH 7.42, pCO2 37 - UA with ketones + glucose - Most recent A1c (07/2024) @ 7.6% - Provided pt with evening dose of lantus 22U --> Lantus 12U BID while inpatient - SSI with target BSG range 110-140mg/dL, CF 30, carb ratio 10 - BSG ACHS - Resume home dosing at discharge #Hyponatremia Likely secondary to poor oral intake/elevated sugars. Some "wobbliness"/weakness day of arrival, no new neurological deficits associated with such. Improving NSS @ 125 mL/hr (echo EF 55-60%, G1DD) #HTN- Atenolol, benazepril - continue #HLD- Atorvastatin - continue #H/o hemorrhagic CVA w/ residual deficits (R)- ~ 1999; lives in personal care independent living; follows with neurology #Constipation- Docusate - continue #Chronic pain syndrome- Amitriptyline, gabapentin - continue #Urinary incontinence- Myrbetriq - continue Total Time Total Time Spent Total Time Spent (In Minutes): see attending documentation Discharge Plan Discharge Items Patient Disposition: Home - Self-Care Reason For Visit: WEAKNESS, HYPONATREMIA Discharge Diagnosis: Weakness, Hyponatremia Activity: Resume your previous activity Activity Comment: as tolerated Non-emergency contact: Primary Care Provider Call non-emergency contact if: you have any medication questions and you have a fever Follow-up/Referrals: Elva Freed DO [Primary Care Provider] - 01/10/25 10:00 am (Hospital follow up scheduled on January 10, 2025 at 10:00 am with CHANTALE Duong) Diet: Carb Count or DM1 and Heart Healthy Addtl Attending Provider Instructions: You were admitted to the hospital for weakness and found to have low sodium in your blood. You were treated with fluids. We believe that most of your symptoms were related to dehydration. You were evaluated by physical therapy who recommended that you attend short term inpatient rehab. As is your right, you declined. Your sodium did improve while you were hospitalized and your glucose was well controlled. A discharge summary will be sent to your primary care physician to ensure continuity of care. Please bring this discharge summary with you to your next office appointment so that your provider can review it at that time. Follow-up appointments: Make a follow-up appointment with your PCP within the next week. It is very important that you follow up with them shortly after discharge from the hospital. Keep all your follow-up appointments as already scheduled. If you cannot make an appointment, notify your provider. Medications: Your medication list has been reviewed and reconciled upon discharge to ensure accuracy and continuity of care. An updated list of all your medications is included with your hospital discharge paperwork. Please review this list closely, and make note of any changes. Take your medications as instructed; do not skip a dose of your medicines. Make sure all of your doctors know every medicine you are taking (including hmst-yiz-nqcvrmk medicines, vitamins, and supplements). Call your primary care provider before taking any new medicines (including nhen-qgl-hkjdljq medicines, vitamins, and supplements), because some of these may interact with your current medications, or may make your symptoms worse. Tell your primary care provider if you cannot afford your medications. CONTACT YOUR PRIMARY CARE PROVIDER if you experience any of the following: Increased weakness Confusion Difficulty following your treatment plan, or difficulty taking medications CALL 911 OR GO TO THE EMERGENCY DEPARTMENT if you experience any of the following: Sudden, severe abdominal pain or nausea/vomiting Severe chest pain, or chest pain that radiates (moves) to your jaw or arm Sudden, severe shortness of breath or difficulty breathing Thank you for allowing us to participate in your care. Pending Studies at Discharge: No Stand-Alone Forms: [facility] Medications and DC Order Prescriptions: Continued (DME) Dexcom G7 Sensor Device See Rx Instructions .Route Qty: 3 11RF Rx Instructions: change sensor every 10 days (DME) Omnipod 5 G6 Intro Kit (Gen 5) Cartridge See Rx Instructions .ROUTE .MEDSUPPLY Qty: 1 0RF Rx Instructions: change pod every 3 days (DME) Omnipod 5 G6 Pods (Gen 5) Cartridge See Rx Instructions .ROUTE .MEDSUPPLY Qty: 10 11RF Rx Instructions: change pod every 3 days atorvastatin 80 mg tablet 80 mg PO DAILY 90 Days Qty: 90 3RF amitriptyline 25 mg tablet 25 mg PO HS Qty: 90 3RF atenolol 25 mg tablet 25 mg PO DAILY Qty: 90 3RF gabapentin 800 mg tablet 800 mg PO TID Qty: 180 3RF docusate sodium 100 mg tablet 100 mg PO BID Qty: 180 3RF mirabegron [Myrbetriq] 50 mg tablet extended release 24 hr 50 mg PO DAILY Qty: 90 3RF insulin glargine [Lantus Solostar U-100 Insulin] 100 unit/mL (3 mL) insulin pen 22 unit subcut QPM Qty: 15 5RF insulin lispro [Humalog KwikPen Insulin] 100 unit/mL insulin pen 8 - 9 sliding scale dose SUBCUT UD MDD TDD 30 units Rx Instructions: subcutaneously; IF BSG 80-125, Inject 8 UNITS W/ MEALS (9 units if having dessert); HOLD IF <80. AND ADD 1 UNIT FOR EVERY 25 RISE IN SUGAR IF >125 for SS. benazepril 10 mg tablet 10 mg PO DAILY Discharge Orders: Discharge Order (Routine); Ordered 01/02/25 Ordered By: Julio César Sylvestre/Other Patient Handouts: High Blood Sugar (Hyperglycemia), Managing Type 1 Diabetes, Stroke: Resources and Support, Stroke Self Care After, Stroke Prevention Eating Healthy, Stroke Prevention Activity Admission Data Admit Date/Time: 01/01/25 14:48 Attending Provider: Charly Ruiz Admit Provider: Herbie Avery Primary Care Provider: Elva Freed Other Providers: Herbie Avery Other Interventions: Discharge Summary Assessment (RN) Last Done: 01/02/25 14:04 Supervising Physician Co-Signing Physician Notes I personally examined the patient and verified all guardado points of history and exam, discussed case, and agree with decision making with Dr Srinivasan feels up to leaving the hospital today, expresses disappointment that he might not be working with PT today because he feels stiff from being in bed all day. discussed with him that this is why we had encouraged him to dc yesterday since he was doing well enough and didn't want to wait to go to SNF; explained hospital PT staffing and goals vs SNF/rehab. Vitals noted, in general he is awake and alert pleasant no distress. HEENT normocephalic atraumatic mucous membranes moist. Breathing unlabored no accessory muscle use good effort. Skin without rashes, pallor, icterus. Weaknessfortunately was not DKA as the patient was concerned about, although I do suspect dehydration was at playwhether his sugar control getting worse led to a degree of an osmotic diuresis but not enough to affect DKA physiology, or whether he simply got kind of dehydrated and the illness worsened his glucose controleither way seems to be improved. safe/stable for home. DVT proph ambulation and compression given prior hemorrhagic stroke (fairly mobile so risk/benefit favors holding off on pharmacologic at this time) Resident Activity Tracking Resident Involvement: Resident Care Provided Care Provided: Adult Hospital Medicine
--- NOTE | 2025-01-02 17:18 | Billing Data ---
Date of Service January 02, 2025 Coding Level of Care Code 81738 IN/OBS DISCH 30 MIN/LESS
== END 2025-01-02 14:44 | disposition home or self-care (01) | DRG 641 ==
LOC: ED 20:05 → 2N 20:05 → SUATTDRO 22:36 → 2N 23:45 → 3N 01-01 21:27

== ENCOUNTER 2025-08-30 12:19 | Inpatient (IN) ==
[2025-08-30 13:19] LABS: Hematocrit (blood only) 42.4 % (42.0-52.0); Hemoglobin 15.3 g/dL (14.0-18.0); Mean Corpuscular Hemoglobin 33.0 pg (25.0-34.0); Mean Corpuscular Volume 91.6 fL (80.0-100.0); Platelet Count 283 K/uL (130-400); RDW Standard Deviation 39.6 fL (36.4-46.3); Red Blood Count 4.63 M/uL (4.70-6.10); White Blood Count 13.27 K/ul (4.8-10.8)
[2025-08-30 13:26] LABS: Anion Gap 12 (3-11); Blood Urea Nitrogen 13 mg/dl (6-23); Calcium 9.1 mg/dl (8.6-10.3); Carbon Dioxide 24 mmol/L (21-32); Chloride 91 mmol/L (98-107); Creatinine Clr Calc Pharmacy 119.3 ml/min; Glucose 242 mg/dl (70-99(Fasting)); Potassium 4.4 mmol/L (3.5-5.1); Sodium 127 mmol/L (136-145)
[2025-08-30 13:29] LABS: Alanine Aminotransferase 21 U/L (7-52); Albumin Globulin Ratio 1.3 (0.9-2); Albumin Level 4.3 gm/dl (3.4-5.0); Alkaline Phosphatase 99 U/L (34-104); Bilirubin,Total 0.9 mg/dl (0.2-1.0); Globulin 3.4 gm/dl (2.5-4.0); Lipase < 3 U/L (11-82); Total Protein 7.7 gm/dl (6.0-8.3)
--- NOTE | 2025-08-30 13:31 | Emergency Department Note ---
Impression & Plan Fall, Hypertensive urgency, Confusion, Retroperitoneal hematoma ED Provider Note Provider: Chance Payan MD CHIEF COMPLAINT: Unwitnessed fall HISTORY OF PRESENT ILLNESS: Patient is a 75-year-old gentleman very unfortunate prior history of CVA 7 years ago as well as diabetes presenting here today [place] [facility] [facility] [place] [facility] [place] [facility] Was found by staff on the floor. EMS states there was some concern about her right knee or leg injury. Patient himself denies significant pain to me. Is been difficult to obtain much of a history from due to aphasia. Reported be at baseline with some chronic contractures and weakness to the right arm and leg. Aphasia was reported be baseline as well. Patient does not report to be on blood thinners. Patient was evidently headed to lunch but is unable to describe exactly how the episode happened. Son later arrives and confirms the patient's at his baseline. Patient does occasionally complain of some pain in the left knee. Son does report the patient usually has fairly well-controlled blood pressure and they have actually taken off some blood pressure medicine recently as it has been running low. PAST MEDICAL HISTORY: As noted above MEDICATIONS: Reviewed home medication list SOCIAL HISTORY: Resides at the [facility] PHYSICAL EXAM: GENERAL: alert and oriented to person in no acute distress on stretcher Head: normocephalic and atraumatic EYES: No injection, discharge or icterus. PERRL, EOMI. NECK: Trachea midline. Supple. ENT: Mucous membranes pink and moist. LUNGS: Airway patent. No retractions. Breath sounds clear with good air entry bilaterally. HEART: Regular rate and rhythm. No chest wall tenderness ABDOMEN: Soft and non-tender, without guarding or rebound. No flank tenderness SKIN: Acyanotic, warm, dry, without rashes EXTREMITIES: Without swelling, tenderness or deformity with some contracture noted to the right arm and leg. NEUROLOGICAL: Contractures with some slight limited bit of the right arm and leg. No significant bruising or tenderness noted. No swelling. No lacerations noted of significance. Some slow speech. Aphasia noted. EK bpm sinus tachycardia. No PVC or PAC. No acute ST segment elevation or depression with QTc of 453. CONTINUOUS CARDIAC MONITORING: was ordered and showed a heart rate of 100s -110s bpm in sinus tachycardia Patient's laboratory studies and imaging reviewed. Differential includes Fracture, dislocation, contusion, intra-abdominal, pneumothorax, intrathoracic, intracranial, neurologic, compartment syndrome, rhabdomyolysis, as well as other pathologies. IMPRESSION/MEDICAL DECISION MAKING: But difficult get a history given prior stroke and aphasia issues. Seems to move all extremities well I do not see evidence of any significant trauma. Unclear if he passed out or exactly how the fall happened. As such CT then cervical spine completed without acute traumatic injuries noted per radiology. Did not seem to have new confusion or neurological deficit cording son who later arrives. X-rays of the chest, hip and pelvis, and right knee obtained without obvious evidence of fracture. Is significant hypertensive here. Given some Tylenol as it does seem like occasionally he reports some pain in the knee. Do not see evidence of again obvious dislocation or fracture here. There is no bruising. Chronic hyponatremia is noted with normal renal function. Does appear that he has a little bit of anion gap and a blood sugar is mildly elevated. Does have a leukocytosis of 13. Do question if given his type 1 diabetes there is a slight gap opening indicative of early DKA. Troponin normal nonnegative of heart injury. Given some IV fluid here and VBG and urinalysis was sent. Will complete CT scan of the chest abdomen pelvis to exclude any other occult abnormality given the limitations of history and his persistent hypertension. CT head as well as cervical spine without acute traumatic injury per radiology. Chest x-ray as well as knee and right hip x-ray without findings of fracture or dislocation. Son did state the patient took and had his morning medication as well as noted insulin since this morning. Patient severely hypertensive here peaking at 255/123. Given a dose of IV labetalol with minimal effect. Procalcitonin not elevated at 0.06. Lower suspicion for sepsis but urinalysis is completed. No significant finding concerning for retention on Ruiz. CT of the chest abdomen pelvis per radiology with an acute for subacute retroperitoneal hemorrhage without solid organ injury or fracture. Some distended bladder is noted as well. May be contributing a little bit or possibly consider Ruiz catheter in discussion with son. Will defer to this time to the hospitalist team. Patient again is not on blood thinners. No active extravasation noted of RP hematoma. This discomfort may be causing him to grimace at times. Cannot exclude he has some concussion component to the confusion as well. Given his uncontrolled hypertension that is uncharacteristic, change in mental status and the finding of RP hematoma do not feel the patient is stable for discharge back to his facility at this time. Son also states he does not seem himself and more fatigued. Does have a borderline anion gap mildly elevated glucose and some ketones in the urine. Doubt this is true DKA however and blood sugars improving. Discussed with the hospitalist for further care. A total of 2 L of normal saline given for hydration. VBG and repeat BMP is pending collection to ensure no significant acidosis and improving anion gap. DIAGNOSIS: Fall, hypertensive urgency, confusion, RP hematoma DISPOSITION: Hospitalist will evaluate Son agreeable with this plan. Past Med/Surg History Problem List (Updated 08/30/25 @ 16:24 by Chance Payan M.D.) Retroperitoneal hematoma (Acute) Confusion (Acute) Hypertensive urgency (Acute) Fall (Acute) Dry skin Hypertension Chronic hyponatremia Ambulatory dysfunction Weakness (Acute) Mild cognitive impairment Urinary incontinence Neuropathy Chronic pain syndrome BMI 31.0-31.9,adult Type 1 diabetes mellitus History of hemorrhagic cerebrovascular accident (CVA) with residual deficit (Acute) Recurrent falls (Acute) Medical History Hyperglycemia Hyponatremia DKA (diabetic ketoacidosis) Closed supracondylar fracture of right elbow Pneumonia DKA (diabetic ketoacidosis) Metabolic encephalopathy Hyperlipidemia Hypertension History of stroke with residual deficit Hemorrhagic cerebrovascular accident (CVA) Surgical History H/O tooth extraction History of cataract surgery H/O colonoscopy Family History Grandmother (Maternal) Heart disease Father Pancreatic cancer Mother Emphysema lung Denies family history of Ovarian cancer Prostate cancer Breast cancer Colorectal cancer Social History Smoking Status: Former smoker Tobacco Type: Cigarettes Age Started Using Tobacco: 17; Age Quit Using Tobacco: 49; packs per day: 0.25; Second Hand Exposure: No; Do You Dip or Chew Tobacco: No; Hx Alcohol Use: Yes Alcohol type: wine Hx Substance Use: No Preferred Language: American Communication Ability: Effective Communication Ability Comment: aphasia, confusion Clinical Resource Coordinator Required: No Beliefs That Will Affect Care: None marital status: / Current Living Situation: Personal Care Facility Current Living Situation Comment: [facility] current occupational status: retired Feels Safe at Home: Yes Childhood Exposure to Second-Hand Smoke: Yes Dental Care, Regularly: Yes Physical Activity Frequency: 3-4 Times per Week Seatbelt Use: always Sunscreen Use: No Assistive Devices: None Allergies Allergies Allergy/AdvReac Type Severity Reaction Status Date / Time terbinafine [From Lamisil] Allergy Intermediate Rash Verified 06/05/25 11:12 Home Meds Home Medications Medication Instructions Recorded Confirmed benazepril 10 mg tablet 10 mg PO DAILY 12/30/24 08/30/25 insulin glargine 100 unit/mL (3 20 unit subcut QPM 02/06/25 08/30/25 mL) subcutaneous pen (Lantus Solostar U-100 Insulin) atenolol 25 mg tablet 12.5 mg PO DAILY 08/30/25 08/30/25 docusate sodium 100 mg tablet 200 - 400 mg PO DAILY 08/30/25 08/30/25 furosemide 20 mg tablet (Lasix) 0 mg PO DAILY 08/30/25 08/30/25 insulin lispro 100 unit/mL 1 sliding scale dose subcut UD 08/30/25 08/30/25 subcutaneous pen (Humalog KwikPen (U-100) Insulin) oxycodone 5 mg tablet 5 - 10 mg PO Q12 PRN Pain 08/30/25 08/30/25 sodium chloride 1,000 mg soluble 0 mg PO BID 08/30/25 08/30/25 tablet Previous Rx's Medication Instructions Recorded amitriptyline 25 mg tablet 25 mg PO HS #90 tabs 10/17/24 mirabegron 50 mg tablet,extended 50 mg PO DAILY #90 tabs 05/29/25 release 24 hr (Myrbetriq) glucagon 1 mg/0.2 mL subcutaneous 1 mg (0.2 mL) subcut ONCE PRN 06/05/25 auto-injector (Gvoke HypoPen severe hypoglycemia #0.4 mL 2-Pack) blood-glucose sensor (Dexcom G7 #3 ea 06/24/25 Sensor device) atorvastatin 80 mg tablet 80 mg PO DAILY 90 days #90 tabs 07/18/25 gabapentin 800 mg tablet 800 mg PO TID #180 tabs 08/14/25 pen needle, diabetic 32 gauge x #500 ea 08/19/25" (1st Tier Unifine Pentips Plus) Results & Data (ED) Vital Signs Vital Signs - 24 hr 08/30/25 12:32 08/30/25 12:32 08/30/25 14:38 Temperature 36.7 C Temperature Source Oral Pulse Rate 108 H 110 H 110 H Pulse Rate from SpO2 Sensor Respiratory Rate 19 Respiratory Effort / Characteristics Non-Labored Spontaneous Respiratory Depth Shallow Respiratory Pattern Regular Blood Pressure 195/96 H 255/123 H Blood Pressure Mean 129 Pulse Oximetry 96 Oxygen Delivery Method Room Air Sepsis Recent Fever Within 48 Hours No Sepsis New/Unexplained Change in Mental Status N/A Sepsis Action Taken by Nursing No Action Required 08/30/25 15:00 08/30/25 15:15 08/30/25 15:21 Temperature Temperature Source Pulse Rate 96 H 99 H 101 H Pulse Rate from SpO2 Sensor 98 H 98 H Respiratory Rate 16 21 20 Respiratory Effort / Characteristics Respiratory Depth Respiratory Pattern Blood Pressure 224/110 H 232/119 H 199/102 H Blood Pressure Mean 148 156 134 Pulse Oximetry 95 96 97 Oxygen Delivery Method Room Air Room Air Room Air Sepsis Recent Fever Within 48 Hours Sepsis New/Unexplained Change in Mental Status Sepsis Action Taken by Nursing 08/30/25 15:30 Temperature Temperature Source Pulse Rate 96 H Pulse Rate from SpO2 Sensor Respiratory Rate 22 Respiratory Effort / Characteristics Respiratory Depth Respiratory Pattern Blood Pressure 208/105 H Blood Pressure Mean 139 Pulse Oximetry 97 Oxygen Delivery Method Room Air Sepsis Recent Fever Within 48 Hours Sepsis New/Unexplained Change in Mental Status Sepsis Action Taken by Nursing Laboratory Data 08/30/25 12:35 08/30/25 12:35 Lab Results 08/30/25 08/30/25 08/30/25 Range/Units 12:35 14:31 16:04 WBC 13.27 H (4.8-10.8) K/ul RBC 4.63 L (4.70-6.10) M/uL Hgb 15.3 (14.0-18.0) g/dL Hct 42.4 (42.0-52.0) % MCV 91.6 (80.0-100.0) fL MCH 33.0 (25.0-34.0) pg MCHC 36.1 H (32.0-36.0) g/dL RDW Std Deviation 39.6 (36.4-46.3) fL RDW Coeff of Nazia 11.8 (11.5-14.5) % Plt Count 283 (130-400) K/uL MPV 9.2 L (9.4-12.4) fL Immature Gran % (Auto) 1.0 % Neut % (Auto) 90.5 % Lymph % (Auto) 3.4 % Graves % (Auto) 4.8 % Eos % (Auto) 0.1 % Baso % (Auto) 0.2 % Neut # (Auto) 12.01 H (1.40-6.50) K/uL Lymph # (Auto) 0.45 L (1.20-3.40) K/uL Graves # (Auto) 0.64 H (0.11-0.59) K/uL Eos # (Auto) 0.01 (0.00-0.50) K/uL Baso # (Auto) 0.03 (0.00-0.20) K/uL Immature Gran # (Auto) 0.13 (0.01-0.20) K/uL Polychromasia 1+ Echinocytes 1+ PT 10.6 (9.0-12.0) Seconds INR 1.0 (0.9-1.1) APTT 28 (21-31) Seconds PTT Ratio 1.0 VBG pH Cancelled VBG pCO2 Cancelled VBG pO2 Cancelled VBG HCO3 Cancelled VBG O2 Saturation Cancelled VBG Base Excess Cancelled Barometric Pressure Cancelled Sodium 127 L (136-145) mmol/L Potassium 4.4 (3.5-5.1) mmol/L Chloride 91 L (98-107) mmol/L Carbon Dioxide 24 (21-32) mmol/L Anion Gap 12 H (3-11) BUN 13 (6-23) mg/dl Creatinine 0.61 (0.6-1.4) mg/dl Est Cr Clr Drug Dosing 119.3 ml/min eGFR 99.55 BUN/Creatinine Ratio 21.3 H (10-20) Glucose 242 H (70-99(Fasting)) mg/dl POC Glucose 166 H (70-99) mg/dl Calcium 9.1 (8.6-10.3) mg/dl Total Bilirubin 0.9 (0.2-1.0) mg/dl AST 26 (13-39) U/L ALT 21 (7-52) U/L Alkaline Phosphatase 99 (34-104) U/L Troponin I High Sens 6.6 (0-20) pg/ml Total Protein 7.7 (6.0-8.3) gm/dl Albumin 4.3 (3.4-5.0) gm/dl Globulin 3.4 (2.5-4.0) gm/dl Albumin/Globulin Ratio 1.3 (0.9-2) Lipase < 3 L (11-82) U/L Procalcitonin 0.06 (0-0.5) ng/ml Urine Color Urine Appearance (Clear) Urine pH (4.5-7.5) Ur Specific Elkins (1.000-1.030) Urine Protein (Negative) Urine Glucose (UA) (Negative) Urine Ketones (Negative) Urine Blood (Negative) Urine Nitrite (Negative) Urine Bilirubin (Negative) Urine Urobilinogen (Negative) Ur Leukocyte Esterase (Negative) Urine WBC (Auto) (0-5) /hpf Urine RBC (Auto) (0-2) /hpf U Hyaline Cast (Auto) (0-2) /lpf U Epithel Cells (Auto) (0-2) /hpf Urine Bacteria (Auto) (None Seen) Urine Sperm (None Prsent) Urine Comment 08/30/25 Range/Units Unknown WBC (4.8-10.8) K/ul RBC (4.70-6.10) M/uL Hgb (14.0-18.0) g/dL Hct (42.0-52.0) % MCV (80.0-100.0) fL MCH (25.0-34.0) pg MCHC (32.0-36.0) g/dL RDW Std Deviation (36.4-46.3) fL RDW Coeff of Nazia (11.5-14.5) % Plt Count (130-400) K/uL MPV (9.4-12.4) fL Immature Gran % (Auto) % Neut % (Auto) % Lymph % (Auto) % Graves % (Auto) % Eos % (Auto) % Baso % (Auto) % Neut # (Auto) (1.40-6.50) K/uL Lymph # (Auto) (1.20-3.40) K/uL Graves # (Auto) (0.11-0.59) K/uL Eos # (Auto) (0.00-0.50) K/uL Baso # (Auto) (0.00-0.20) K/uL Immature Gran # (Auto) (0.01-0.20) K/uL Polychromasia Echinocytes PT (9.0-12.0) Seconds INR (0.9-1.1) APTT (21-31) Seconds PTT Ratio VBG pH VBG pCO2 VBG pO2 VBG HCO3 VBG O2 Saturation VBG Base Excess Barometric Pressure Sodium (136-145) mmol/L Potassium (3.5-5.1) mmol/L Chloride (98-107) mmol/L Carbon Dioxide (21-32) mmol/L Anion Gap (3-11) BUN (6-23) mg/dl Creatinine (0.6-1.4) mg/dl Est Cr Clr Drug Dosing ml/min eGFR BUN/Creatinine Ratio (10-20) Glucose (70-99(Fasting)) mg/dl POC Glucose (70-99) mg/dl Calcium (8.6-10.3) mg/dl Total Bilirubin (0.2-1.0) mg/dl AST (13-39) U/L ALT (7-52) U/L Alkaline Phosphatase (34-104) U/L Troponin I High Sens (0-20) pg/ml Total Protein (6.0-8.3) gm/dl Albumin (3.4-5.0) gm/dl Globulin (2.5-4.0) gm/dl Albumin/Globulin Ratio (0.9-2) Lipase (11-82) U/L Procalcitonin (0-0.5) ng/ml Urine Color Yellow Urine Appearance Clear (Clear) Urine pH 7.0 (4.5-7.5) Ur Specific Elkins 1.024 (1.000-1.030) Urine Protein 1+ H (Negative) Urine Glucose (UA) 3+ H (Negative) Urine Ketones 3+ H (Negative) Urine Blood Trace H (Negative) Urine Nitrite Negative (Negative) Urine Bilirubin Negative (Negative) Urine Urobilinogen Negative (Negative) Ur Leukocyte Esterase Negative (Negative) Urine WBC (Auto) 0-5 (0-5) /hpf Urine RBC (Auto) 6-10 H (0-2) /hpf U Hyaline Cast (Auto) 0-2 (0-2) /lpf U Epithel Cells (Auto) 0-2 (0-2) /hpf Urine Bacteria (Auto) None Seen (None Seen) Urine Sperm Present A (None Prsent) Urine Comment Administered Medications Discontinued Medications Acetaminophen (Ofirmev) 1,000 mg in 100 mls @ 400 mls/hr IV NOW STA Stop: 08/30/25 13:55 Last Admin: 08/30/25 14:02 Dose: 400 mls/hr Documented By: sak Sodium Chloride (Nss) 1,000 mls @ 999 mls/hr IV .Q1H1M ONE Stop: 08/30/25 15:18 Last Admin: 08/30/25 14:25 Dose: 999 mls/hr Documented By: ML Ioversol (Optiray 320 100ml) 94 ml IV ONCE ONE Stop: 08/30/25 15:47 Last Admin: 08/30/25 15:47 Dose: 94 ml Documented By: EDK Labetalol HCl (Labetalol Hcl Iv 5 Mg/Ml 20ml) 10 mg IV NOW STA Stop: 08/30/25 14:34 Last Admin: 08/30/25 14:38 Dose: 10 mg Documented By: ML Imaging Data Radiologist's Impression: Chest X-Ray 08/30/25 13:03 XR chest 1V portable CLINICAL HISTORY: Fall. COMPARISON STUDY: Chest CT February 02, 2024. Chest radiograph December 30, 2024. FINDINGS: Mild elevation of the left hemidiaphragm is unchanged. There is no pneumothorax or pleural effusion. Minimal left basilar densities favor atelectasis. No evidence for pulmonary edema. Chronic deformity of the distal right clavicle is again noted. IMPRESSION: No acute findings. No change in appearance of the chest. ACT 112: Negative or not required by law. Electronically signed by: Jose F Gupta M.D. 08/30/2025 2:07 PM Hip/Pelvis X-Ray 08/30/25 13:03 XR hip RT 2V w pelvis HISTORY: 75 years-old Male fall acute pain of the pelvis and right hip status post fall COMPARISON: Radiograph 11/03/2024 TECHNIQUE: AP view of the pelvis with 2 views of the right hip FINDINGS: Moderate osteoarthritis of the hips. No acute fracture, dislocation or avascular necrosis identified. Arterial calcifications. IMPRESSION: No acute fracture or dislocation identified. ACT 112: Negative or not required by law. The above report was generated using voice recognition software. It may contain grammatical, syntax or spelling errors. Electronically signed by: Anthony Martin M.D. 08/30/2025 2:22 PM Knee X-Ray 08/30/25 13:03 RIGHT KNEE 2 VIEWS CLINICAL HISTORY: Fall with right knee pain. FINDINGS: AP and crosstable lateral views of the right knee are correlated with x-rays of the right tibia and fibula dated 09/11/2023. The skeletal structures are osteopenic. No fracture is seen. There is mild tricompartmental degenerative joint space narrowing, greatest in the medial compartment. There are patellar enthesophytes. No significant joint effusion is seen. Atherosclerotic calcification is noted in the regional arteries. IMPRESSION: No acute bony abnormality is identified. Electronically signed by: Sina Kemp M.D. 08/30/2025 2:[address] 08/30/25 13:06 CT SCAN OF THE CERVICAL SPINE CLINICAL HISTORY: Fall. COMPARISON STUDY: Cervical spine CT November 03, 2024. TECHNIQUE: CT scan of the cervical spine is performed from the skull base to the upper thoracic spine. Images are reviewed in the axial, sagittal, and coronal planes. IV contrast was not administered for this examination. A dose lowering technique was utilized adhering to the principles of ALARA. CT DOSE: 1206.5 mGy.cm FINDINGS: Skeletal structures: There is no evidence of fracture or subluxation involving the cervical spine. Vertebral body height and alignment are maintained. The odontoid process and lateral masses are intact. The atlantoaxial articulation is preserved. The spinous processes appear intact. Moderate multilevel facet arthrosis is again noted. There is also mild to moderate multilevel disc space narrowing and endplate osteophytosis within the cervical spine. This is unchanged. Soft tissues: The prevertebral and paraspinous soft tissues are within normal limits. Calvarium: The visualized calvarium at the skull base appears intact. Brain parenchyma: Extra-axial partially calcified right posterior fossa lesion is unchanged. This represents a meningioma. Lung apices: Clear as visualized. IMPRESSION: No acute cervical spine fracture or subluxation. ACT 112: Negative or not required by law. Electronically signed by: Jose F Gupta M.D. 08/30/2025 1:[address] 08/30/25 13:06 CT SCAN OF THE BRAIN WITHOUT IV CONTRAST CLINICAL HISTORY: Fall COMPARISON STUDY: CT of the brain dated 12/30/2024 TECHNIQUE: Unenhanced CT scan of the brain is performed from the vertex to the skull base. Images are reviewed in the axial, sagittal, coronal planes. A dose lowering technique was utilized adhering to the principles of ALARA. FINDINGS: Brain parenchyma: There is age-related involutional change noting moderate subcortical and periventricular microangiopathic disease. There is no hemorrhage, mass effect, or evidence of acute territorial ischemia by CT criteria. A 2.1 cm calcified meningioma in the right posterior fossa is unchanged. Deleon-white matter differentiation is preserved. No extra-axial fluid collection is seen. Ventricles, sulci, cisterns: Prominent secondary to involutional change. Intracranial vasculature: There is atherosclerotic calcification of the cavernous carotid and vertebral arteries. Calvarium: Unremarkable. Sinuses and mastoids: There is moderate mucosal thickening within the left frontal sinus and ethmoid sinuses. Mild mucosal thickening seen within the right frontal sinus and the sphenoid sinuses. There is a small right mastoid effusion. The left mastoid air cells are well pneumatized. Cerumen is noted in the external auditory canals. Orbits: The bony orbits are grossly intact. There are bilateral ocular lens implants. IMPRESSION: 1. There is no hemorrhage, mass effect, or evidence of acute territorial ischemia by CT criteria. 2. A right posterior fossa meningioma is unchanged. ACT 112: Negative or not required by law. Electronically signed by: Sina Kemp M.D. 08/30/2025 1:36 PM Abdomen/Pelvis CT 08/30/25 14:[address] WITH IV CONTRAST HISTORY: Acute abdominal trauma status post fall fall, htn TECHNIQUE: Multiaxial CT images of the abdomen and pelvis were performed following the IV administration of 94 cc of Optiray, A dose lowering technique was utilized adhering to the principles of ALARA. COMPARISON STUDY: Chest CT same day, CT abdomen and pelvis 11/03/2024 FINDINGS: Chest CT dictated separately. Moderate coronary artery calcifications. Bibasilar atelectasis/scarring with a few scattered calcified pulmonary granulomata. No pneumatosis or pneumoperitoneum. Unremarkable spleen, pancreas, gallbladder and adrenal glands. Liver is within normal limits. Patency of the hepatic and portal veins. Unremarkable kidneys. No hydronephrosis. Prostamegaly. The urinary bladder is distended and may demonstrate a small amount of layering intraluminal debris. Atherosclerosis of the aorta without aneurysm. There is asymmetric enlargement of the right psoas, iliacus and iliopsoas muscles which is new from prior. Calcifications are noted within the myotendinous junction of the iliopsoas on image 306 series 7 extends for a length of approximately 30 cm. Small hiatal hernia. Colonic diverticulosis without acute diverticulitis. Mild to moderate colonic fecal retention. Normal appendix. Tiny fat filled umbilical hernia. Degenerative changes of the spine, pelvis and hips. Chronic bilateral rib fractures. No definite acute fracture identified. IMPRESSION: 1. Asymmetric enlargement of the right psoas, iliacus and iliopsoas musculature is new from prior compatible with acute versus subacute retroperitoneal hemorrhage. 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 2. No evidence of acute solid organ injury. 3. No acute fracture identified. 4. Chest CT dictated separately. ACT 112: Negative or not required by law. The above report was generated using voice recognition software. It may contain grammatical, syntax or spelling errors. Electronically signed by: Anthony Martin M.D. 08/30/2025 4:07 PM Discharge Plan Visit Data Chief Complaint: Fall Stated Complaint: FALL ED Provider: Chance Payan Discharge Problem: Fall, Hypertensive urgency, Confusion, Retroperitoneal hematoma Patient Disposition: Being Evaluated by Hospitalist Condition: Fair Forms Stand Alone Forms: [facility] Medical Prescriptions Prescriptions: No Action mirabegron [Myrbetriq] 50 mg tablet extended release 24 hr 50 mg PO DAILY Qty: 90 3RF (DME) Dexcom G7 Sensor Device See Rx Instructions .Route Qty: 3 11RF Rx Instructions: change sensor every 10 days atorvastatin 80 mg tablet 80 mg PO DAILY 90 Days Qty: 90 3RF gabapentin 800 mg tablet 800 mg PO TID Qty: 180 3RF (DME) pen needle, diabetic [1st Tier Unifine Pentips Plus] 32 gauge x 5/32" needle See Rx Instructions .Route Qty: 500 4RF Rx Instructions: four times a day insulin glargine [Lantus Solostar U-100 Insulin] 100 unit/mL (3 mL) insulin pen 20 unit subcut QPM Gvoke HypoPen 2-Pack 1 mg/0.2 mL auto-injector 1 mg subcut ONCE PRN (Reason: severe hypoglycemia) Qty: 0.4 1RF Patient Comments: 08/29- Not on faxed list unable to verify amitriptyline 25 mg tablet 25 mg PO HS Qty: 90 3RF oxycodone 5 mg tablet 5 - 10 mg PO Q12 PRN (Reason: Pain) atenolol 25 mg tablet 12.5 mg PO DAILY furosemide [Lasix] 20 mg tablet 0 mg PO DAILY Patient Comments: 08/29- Not on faxed list unable to verify docusate sodium 100 mg tablet 200 - 400 mg PO DAILY insulin lispro [Humalog KwikPen Insulin] 100 unit/mL insulin pen 1 sliding scale dose SUBCUT UD MDD TDD 30 units Rx Instructions: subcutaneously; IF BSG 80-125, Inject 8 UNITS W/ MEALS (9 units if having dessert); HOLD IF <80. AND ADD 1 UNIT FOR EVERY 25 RISE IN SUGAR IF >125 for SS. sodium chloride 1,000 mg tablet,soluble 0 mg PO BID Patient Comments: 08/29- Not on faxed list unable to verify benazepril 10 mg tablet 10 mg PO DAILY Referrals Referrals: Elva Freed DO [Primary Care Provider] -
--- NOTE | 2025-08-30 13:38 | CT Scan Report ---
CT SCAN OF THE BRAIN WITHOUT IV CONTRAST CLINICAL HISTORY: Fall COMPARISON STUDY: CT of the brain dated 12/30/2024 TECHNIQUE: Unenhanced CT scan of the brain is performed from the vertex to the skull base. Images are reviewed in the axial, sagittal, coronal planes. A dose lowering technique was utilized adhering to the principles of ALARA. FINDINGS: Brain parenchyma: There is age-related involutional change noting moderate subcortical and periventri cular microangiopathic disease. There is no hemorrhage, mass effect, or evidence of acute territorial ischemia by CT criteria. A 2.1 cm calcified meningioma in the right posterior fossa is unchanged. Gr ay-white matter differentiation is preserved. No extra-axial fluid collection is seen. Ventricles, sulci, cisterns: Prominent secondary to involutional change. Intracranial vasculature: There is atherosclerotic calcification of the cavernous carotid and vertebr al arteries. Calvarium: Unremarkable. Sinuses and mastoids: There is moderate mucosal thickening within the left frontal sinus and ethmoid sinuses. Mild mucosal thickening seen within the right frontal sinus and the sphenoid sinuses. There is a small right mastoid effusion. The left mastoid air cells are well pneumatized. Cerumen is noted in the external auditory canals. Orbits: The bony orbits are grossly intact. There are bilateral ocular lens implants. IMPRESSION: 1. There is no hemorrhage, mass effect, or evidence of acute territorial ischemia by CT criteria. 2. A right posterior fossa meningioma is unchanged. ACT 112: Negative or not required by law. Electronically signed by: Sina Kemp M.D. 08/30/2025 1:36 PM
[2025-08-30 13:41] LABS: Immature Granulocytes # (auto) 0.13 K/uL (0.01-0.20); Immature Granulocytes % (auto) 1.0 %; Polychromasia 1+
[2025-08-30 13:44] LABS: INR 1.0 (0.9-1.1); Partial Thromboplastin Time 28 Seconds (21-31); Prothrombin Time 10.6 Seconds (9.0-12.0)
--- NOTE | 2025-08-30 13:46 | CT Scan Report ---
CT SCAN OF THE CERVICAL SPINE CLINICAL HISTORY: Fall. COMPARISON STUDY: Cervical spine CT November 03, 2024. TECHNIQUE: CT scan of the cervical spine is performed from the skull base to the upper thoracic spine . Images are reviewed in the axial, sagittal, and coronal planes. IV contrast was not administered fo r this examination. A dose lowering technique was utilized adhering to the principles of ALARA. CT DOSE: 1206.5 mGy.cm FINDINGS: Skeletal structures: There is no evidence of fracture or subluxation involving the cervical spine. Ve rtebral body height and alignment are maintained. The odontoid process and lateral masses are intact . The atlantoaxial articulation is preserved. The spinous processes appear intact. Moderate multileve l facet arthrosis is again noted. There is also mild to moderate multilevel disc space narrowing and endplate osteophytosis within the cervical spine. This is unchanged. Soft tissues: The prevertebral and paraspinous soft tissues are within normal limits. Calvarium: The visualized calvarium at the skull base appears intact. Brain parenchyma: Extra-axial partially calcified right posterior fossa lesion is unchanged. This rep resents a meningioma. Lung apices: Clear as visualized. IMPRESSION: No acute cervical spine fracture or subluxation. ACT 112: Negative or not required by law. Electronically signed by: Jose F Gupta M.D. 08/30/2025 1:45 PM
[2025-08-30] MEDS: ACETAMINOPHEN 1,000 MG/100 ML VIAL IV STA (14:02)
--- NOTE | 2025-08-30 14:09 | XRay Report ---
XR chest 1V portable CLINICAL HISTORY: Fall. COMPARISON STUDY: Chest CT February 02, 2024. Chest radiograph December 30, 2024. FINDINGS: Mild elevation of the left hemidiaphragm is unchanged. There is no pneumothorax or pleural effusion. Minimal left basilar densities favor atelectasis. No evidence for pulmonary edema. Chronic deformity of the distal right clavicle is again noted. IMPRESSION: No acute findings. No change in appearance of the chest. ACT 112: Negative or not required by law. Electronically signed by: Jose F Gupta M.D. 08/30/2025 2:07 PM
--- NOTE | 2025-08-30 14:23 | XRay Report ---
XR hip RT 2V w pelvis HISTORY: 75 years-old Male fall acute pain of the pelvis and right hip status post fall COMPARISON: Radiograph 11/03/2024 TECHNIQUE: AP view of the pelvis with 2 views of the right hip FINDINGS: Moderate osteoarthritis of the hips. No acute fracture, dislocation or avascular necrosis identified. Arterial calcifications. IMPRESSION: No acute fracture or dislocation identified. ACT 112: Negative or not required by law. The above report was generated using voice recognition software. It may contain grammatical, syntax o r spelling errors. Electronically signed by: Anthony Martin M.D. 08/30/2025 2:22 PM
[2025-08-30] MEDS: SODIUM CHLORIDE 0.9% 1,000 ML IV ONE ×2 (14:25→16:47)
--- NOTE | 2025-08-30 14:26 | XRay Report ---
RIGHT KNEE 2 VIEWS CLINICAL HISTORY: Fall with right knee pain. FINDINGS: AP and crosstable lateral views of the right knee are correlated with x-rays of the right t ibia and fibula dated 09/11/2023. The skeletal structures are osteopenic. No fracture is seen. There is mild tricompartmental degenerative joint space narrowing, greatest in the medial compartment. Ther e are patellar enthesophytes. No significant joint effusion is seen. Atherosclerotic calcification is noted in the regional arteries. IMPRESSION: No acute bony abnormality is identified. Electronically signed by: Sina Kemp M.D. 08/30/2025 2:25 PM
[2025-08-30] MEDS: LABETALOL HCL IV 5 MG/ML 20ML IV STA (14:38)
[2025-08-30] MEDS: OPTIRAY 320 100ml IV ONE (15:47)
[2025-08-30 15:56] LABS: Appearance Urine Clear (Clear); Bacteria Urine Automated None Seen (None Seen); Cast Urine Automated 0-2 /lpf (0-2); Epithelial Cell Urine Auto 0-2 /hpf (0-2); Glucose Urine UA 3+ (Negative); WBC Urine Automated 0-5 /hpf (0-5)
--- NOTE | 2025-08-30 16:09 | CT Scan Report ---
ABDOMEN AND PELVIS CT WITH IV CONTRAST HISTORY: Acute abdominal trauma status post fall fall, htn TECHNIQUE: Multiaxial CT images of the abdomen and pelvis were performed following the IV administrat ion of 94 cc of Optiray, A dose lowering technique was utilized adhering to the principles of ALARA. COMPARISON STUDY: Chest CT same day, CT abdomen and pelvis 11/03/2024 FINDINGS: Chest CT dictated separately. Moderate coronary artery calcifications. Bibasilar atelectasi s/scarring with a few scattered calcified pulmonary granulomata. No pneumatosis or pneumoperitoneum. Unremarkable spleen, pancreas, gallbladder and adrenal glands. Liver is within normal limits. Patency of the hepatic and portal veins. Unremarkable kidneys. No hydronephrosis. Prostamegaly. The urinary bladder is distended and may demon strate a small amount of layering intraluminal debris. Atherosclerosis of the aorta without aneurysm. There is asymmetric enlargement of the right psoas, iliacus and iliopsoas muscles which is new from prior. Calcifications are noted within the myotendinous junction of the iliopsoas on image 306 series 7 extends for a length of approximately 30 cm. Small hiatal hernia. Colonic diverticulosis without a cute diverticulitis. Mild to moderate colonic fecal retention. Normal appendix. Tiny fat filled umbil ical hernia. Degenerative changes of the spine, pelvis and hips. Chronic bilateral rib fractures. No definite acute fracture identified. IMPRESSION: 1. Asymmetric enlargement of the right psoas, iliacus and iliopsoas musculature is new from prior com patible with acute versus subacute retroperitoneal hemorrhage. 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 2. No evidence of acute solid organ injury. 3. No acute fracture identified. 4. Chest CT dictated separately. ACT 112: Negative or not required by law. The above report was generated using voice recognition software. It may contain grammatical, syntax o r spelling errors. Electronically signed by: Anthony Martin M.D. 08/30/2025 4:07 PM
--- NOTE | 2025-08-30 16:12 | CT Scan Report ---
CT SCAN OF THE CHEST WITH IV CONTRAST CLINICAL HISTORY: Fall. Back pain. COMPARISON STUDY: Chest radiograph performed earlier today. Chest CT February 02, 2024. TECHNIQUE: Following the IV administration of 94 cc of Optiray 320, CT scan of the thorax was perform ed from the thoracic inlet to the upper abdomen. Images are reviewed in the axial, sagittal, and blair nal planes. IV contrast was administered without complication. A dose lowering technique was utilize d adhering to the principles of ALARA. CT DOSE: 2847.71 mGy.cm FINDINGS: There is no evidence for traumatic injury to the thoracic aorta. The heart is mildly enlarg ed. There is extensive coronary artery calcification. A small hiatal hernia is noted. There is no tho racic lymphadenopathy. No mediastinal hematoma is present. Lungs are suboptimally assessed due to res piratory motion. No pulmonary contusion is present. Upper lobe predominant paraseptal emphysema is no yonny. Mild lower lung subpleural groundglass opacities and reticulation are present. No acute rib or t horacic spine fractures are identified. There are several old right-sided rib fractures. Please note that the abdomen and pelvis CT will be reported separately. IMPRESSION: No acute traumatic findings within the chest. ACT 112: Negative or not required by law. Electronically signed by: Jose F Gupta M.D. 08/30/2025 4:11 PM
[2025-08-30 16:46] LABS: Base Excess VBG 1.3 mEq/L; HCO3 VBG 26 mmol/L; Oxygen Saturation VBG 83.5 %; PCO2 VBG 40 mmHg (38-50); PO2 VBG 48 mmHg; pH VBG 7.42 (7.36-7.41)
[2025-08-30 17:23] LABS: Anion Gap 10.0 (3-11); Blood Urea Nitrogen 10.0 mg/dl (6-23); Calcium 8.3 mg/dl (8.6-10.3); Carbon Dioxide 23.0 mmol/L (21-32); Chloride 93.0 mmol/L (98-107); Creatinine Clr Calc Pharmacy 151.6 ml/min; Glucose 178.0 mg/dl (70-99(Fasting)); Potassium 4.1 mmol/L (3.5-5.1); Sodium 126.0 mmol/L (136-145)
--- NOTE | 2025-08-30 18:06 | History & Physical Report ---
Date of Service August 30, 2025 Assessment & Plan (1) Hypertensive encephalopathy: (2) Type 1 diabetes mellitus: (3) History of hemorrhagic cerebrovascular accident (CVA) with residual deficit: (4) Hematoma of iliopsoas muscle: Plan In summary this is a 75-year-old male who presents after an unwitnessed ground- level fall with persistent altered mental status With respect to the patient's altered mental status, there does not appear to be any clear infectious component nor is there evidence of a significant metabolic derangement that would explain this condition; structural assessment with radiographic imaging does not suggest any kind of intracerebral or spinal pathology that would explain this; the patient's persistently elevated blood pressure, some of which are fictitious given the patient's position and placement of his blood pressure cuff when in the emergency department, though while in the room and after repositioning the patient do remain quite elevated, could be causing acute encephalopathic change; it is unknown if the patient took their usual morning medications prior to their presentation to the emergency department. Unusually, the patient does have some sperm noted in their urinalysis, with their prolonged confusion, this may be a postictal state though this would be quite protracted for such condition, I do not suspect that this is nonconvulsive status epilepticus given his ability to participate in a physical exam and describes certain symptoms to me however the patient does have risk factors for developing seizures Resume home antihypertensive regimen Nursing staff notified if attending physician of systolic blood pressure in excess of 210 mmHg and/or diastolic in excess of 110 mmHg; if these measures are noted, would recommend labetalol 10 mg IV one-time with reassessment 30 minutes after administration Pending EEG Incidentally found with imaging during the patient's assessment in the emergency department is a right iliopsoas hematoma; the patient's blood count is normal, the description of their fall is not consistent with one that should necessarily cause an acute hematoma especially not being prescribed any antiplatelet or anticoagulant agents; I suspect this is an old injury especially with the presence of ossification within the hematoma, we will follow the patient's blood count and symptoms to determine any need for repeat imaging If repeat imaging is indicated acutely, would recommend obtaining a CT an giogram of the abdomen and pelvis to assess for any arterial extravasation DVT PPx: Start Lovenox 40 mg SQ daily GI PPx: Not indicated History of Present Illness Chief Complaint: Unwitnessed fall Primary Care Provider: Elva Freed DO Mr. Puente is a 75-year-old male whose active medical conditions include right hemiparesis with motor dysfunction, type 1 diabetes mellitus with peripheral vascular disease and peripheral neuropathy, among other chronic medical conditions who presented to [facility] on 08/30 after an unwitnessed fall at their care facility. There was subsequently brought to the emergency department for continued evaluation. Upon arrival here, the patient was in no acute distress, but per the the patient's son report he was available at bedside the patient was seemingly altered and more somnolent than his typical state. The patient, at the time my examination, was fatigued, but easily arousable and participated in his history and physical exam. The time my exam the patient denies any pain. He cannot recall the circumstances of his fall earlier on the day of presentation. He does endorse a cough which has been persistent for the past several days that is slightly productive but without hemoptysis. The patient denies any fevers, chills, nausea, vomiting, abdominal pain, altered urinary output or altered bowel movements. It is unknown when the patient last took their home medications. Allergies Allergy/AdvReac Type Severity Reaction Status Date / Time terbinafine [From Lamisil] Allergy Intermediate Rash Verified 06/05/25 11:12 Home Medications Medication Instructions Recorded Confirmed Type amitriptyline 25 mg tablet 25 mg PO HS #90 tabs 10/17/24 08/30/25 Rx benazepril 10 mg tablet 10 mg PO DAILY 12/30/24 08/30/25 History insulin glargine 100 unit/mL (3 20 unit subcut QPM 02/06/25 08/30/25 History mL) subcutaneous pen (Lantus Solostar U-100 Insulin) mirabegron 50 mg tablet,extended 50 mg PO DAILY #90 tabs 05/29/25 08/30/25 Rx release 24 hr (Myrbetriq) glucagon 1 mg/0.2 mL subcutaneous 1 mg (0.2 mL) subcut ONCE PRN 06/05/25 08/30/25 Rx auto-injector (Gvoke HypoPen severe hypoglycemia #0.4 mL 2-Pack) blood-glucose sensor (Dexcom G7 #3 ea 06/24/25 Rx Sensor device) atorvastatin 80 mg tablet 80 mg PO DAILY 90 days #90 tabs 07/18/25 08/30/25 Rx gabapentin 800 mg tablet 800 mg PO TID #180 tabs 08/14/25 08/30/25 Rx pen needle, diabetic 32 gauge x #500 ea 08/19/25 Rx 5/32" (1st Tier Unifine Pentips Plus) atenolol 25 mg tablet 12.5 mg PO DAILY 08/30/25 08/30/25 History docusate sodium 100 mg tablet 200 - 400 mg PO DAILY 08/30/25 08/30/25 History furosemide 20 mg tablet (Lasix) 0 mg PO DAILY 08/30/25 08/30/25 History insulin lispro 100 unit/mL 1 sliding scale dose subcut UD 08/30/25 08/30/25 History subcutaneous pen (Humalog KwikPen (U-100) Insulin) oxycodone 5 mg tablet 5 - 10 mg PO Q12 PRN Pain 08/30/25 08/30/25 History sodium chloride 1,000 mg soluble 0 mg PO BID 08/30/25 08/30/25 History tablet Past Med/Surg History Problem List (Updated 08/30/25 @ 18:55 by Servando Louie DO) Hematoma of iliopsoas muscle (Chronic) Hypertensive encephalopathy Fall (Acute) Dry skin Hypertension Chronic hyponatremia Ambulatory dysfunction Weakness (Acute) Mild cognitive impairment Urinary incontinence Neuropathy Chronic pain syndrome BMI 31.0-31.9,adult Type 1 diabetes mellitus History of hemorrhagic cerebrovascular accident (CVA) with residual deficit (Acute) Recurrent falls (Acute) Medical History Hyperglycemia Hyponatremia DKA (diabetic ketoacidosis) Closed supracondylar fracture of right elbow Pneumonia DKA (diabetic ketoacidosis) Metabolic encephalopathy Hyperlipidemia Hypertension History of stroke with residual deficit Hemorrhagic cerebrovascular accident (CVA) Surgical History H/O tooth extraction History of cataract surgery H/O colonoscopy Family History Grandmother (Maternal) Heart disease Father Pancreatic cancer Mother Emphysema lung Denies family history of Ovarian cancer Prostate cancer Breast cancer Colorectal cancer Social History Smoking Status: Former smoker Tobacco Type: Cigarettes Age Started Using Tobacco: 17; Age Quit Using Tobacco: 49; packs per day: 0.25; Second Hand Exposure: No; Do You Dip or Chew Tobacco: No; Hx Alcohol Use: Yes Alcohol type: wine Hx Substance Use: No Preferred Language: Malagasy Communication Ability: Effective Communication Ability Comment: aphasia, confusion 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: No Beliefs That Will Affect Care: None marital status: / Current Living Situation: Personal Care Facility Current Living Situation Comment: [facility] current occupational status: retired Feels Safe at Home: Yes Childhood Exposure to Second-Hand Smoke: Yes Dental Care, Regularly: Yes Physical Activity Frequency: 3-4 Times per Week Seatbelt Use: always Sunscreen Use: No Assistive Devices: None Review of Systems Review of Systems: Review of constitutional, cardiovascular, pulmonary, musculoskeletal, neurologic, gastrointestinal, genitourinary systems was unremarkable except for pertinent positive and negative findings discussed above Physical Exam Physical Exam: General: Elderly male in no acute distress Vital Signs: Reviewed; persistently hypertensive HEENT: Pupils equally round and reactive to light, extraocular motion intact; tacky mucous membranes; overlying the left temporal region there is a soft nontender mass is approximately 2 cm in its widest diameter Neck: Trachea midline, no appreciable jugular venous distention Pulmonary: Symmetric chest wall excursion without restriction; clear to auscultation bilaterally Cardiovascular: Regular rate and rhythm without murmurs, rubs, or gallops; S1 and S2 normal; right radial pulse and left radial pulse 2+ without notable lower extremity edema Gastrointestinal: Protuberant, soft, nontender; bowel sounds with normal frequency and pitch Musculoskeletal: Atrophy of the right upper and lower extremity with diminished range of motion in active and passive assessment; left upper and lower extremity with normal tone Neurologic: Cranial nerves II through XII grossly intact; right upper and lower extremity strength 3/5 with left upper and lower extremity strength 4/5; expressive aphasia noted, consistent with previous deficits from CVA Skin: No notable ecchymoses, palpable hematomas, skin tears, or lacerations Results & Data Results & Data Vital Signs (Past 12 Hours) Vital Signs Temp Pulse Pulse Resp BP BP Pulse Ox 08/30/25 17:12 107 H 16 189/92 H 08/30/25 16:47 105 H 08/30/25 16:45 107 H 24 204/90 H 95 08/30/25 16:36 103 H 17 197/95 H 95 08/30/25 16:30 102 H 25 H 222/111 H 95 08/30/25 16:21 102 H 17 188/89 H 95 08/30/25 15:30 107 H 19 208/105 H 97 08/30/25 15:30 96 H 22 208/105 H 97 08/30/25 15:21 101 H 20 199/102 H 97 08/30/25 15:15 99 H 21 232/119 H 96 08/30/25 15:00 96 H 16 224/110 H 95 08/30/25 14:38 110 H 255/123 H 08/30/25 12:32 36.7 C 110 H 19 195/96 H 96 08/30/25 12:32 108 H O2 Del Method 08/30/25 17:12 08/30/25 16:47 08/30/25 16:45 Room Air 08/30/25 16:36 Room Air 08/30/25 16:30 Room Air 08/30/25 16:21 Room Air 08/30/25 15:30 Room Air 08/30/25 15:30 Room Air 08/30/25 15:21 Room Air 08/30/25 15:15 Room Air 08/30/25 15:00 Room Air 08/30/25 14:38 08/30/25 12:32 Room Air 08/30/25 12:32 Laboratory Results Neutrophilic leukocytosis of 13 Serum sodium 127, anion gap of 12, serum creatinine 0.61, serum glucose 242 Procalcitonin 0.06 Urinalysis remarkable for microscopic protein, glucose, ketones, blood with 6-10 red blood cells per high-power field in addition to sperm Diagnostic Findings Imaging obtained includes portable chest film, plain film of the hip and pelvis, plain film of the right knee, CT with intravenous contrast including the cervical spine, head, abdomen pelvis, and chest; of these images the only remarkable finding is an asymmetric margin of the right psoas, iliac us and iliopsoas concerning for an acute versus subacute retroperitoneal hemorrhage per radiologist interpretation with myositis ossificans noted, there is no extravasation of contrast with this imaging study Code Status & VTE Plan Code Status DNR/DNI VTE Prophylaxis Plan VTE Prophylaxis will be ordered: Yes PG Care Time/CCT Total # of Minutes Spent Total Time Spent with Patient: Total time spent is greater than 50% in coordination of care (as documented) at patient's floor/unit and/or counseling patient: Coding Level of Care Code 86352 INT INP/OBS CARE 2MIN Diagnoses Hypertensive encephalopathy I67.4 Type 1 diabetes mellitus with diabetic polyneuropathy E10.42 Diabetes mellitus complication status: with neurologic complications Diabetes mellitus complication detail: with polyneuropathy History of hemorrhagic cerebrovascular accident (CVA) with residual deficit I69.30 Hematoma of right iliopsoas muscle, initial encounter S70.11XA Encounter type: initial encounter Laterality: right (2) Type 1 diabetes mellitus Diabetes mellitus complication status: with neurologic complications Diabetes mellitus complication detail: with polyneuropathy Qualified Code(s): E10.42 - T ype 1 diabetes mellitus with diabetic polyneuropathy (4) Hematoma of iliopsoas muscle Encounter type: initial encounter Laterality: right Qualified Code(s): S70.11XA - Contusion of right thigh, initial encounter
--- NOTE | 2025-08-30 19:27 | Electrocardiogram Report ---
Test Reason : Blood Pressure : */* mmHG Vent. Rate : 107 BPM Atrial Rate : 107 BPM P-R Int : 204 ms QRS Dur : 88 ms QT Int : 340 ms P-R-T Axes : 57 -11 63 degrees QTcB Int : 453 ms Sinus tachycardia Otherwise normal ECG When compared with ECG of 01-Feb-2024 20:37, No significant change was found Confirmed by Alonso New ([id number]) on 08/30/2025 7:26:52 PM Referred By: Confirmed By: Alonso New
[2025-08-30] MEDS ORDERED: CARBOHYDRATES FOR HYPOGLYCEMIA PO PRN (19:35)
[2025-08-30] MEDS ORDERED: DEXTROSE 50% 50 ML SYRINGE IV PRN (19:35)
[2025-08-30] MEDS ORDERED: GLUCAGON FOR INJ 1 MG VIAL SQ PRN (19:35)
[2025-08-30] MEDS ORDERED: GLUCOSE 40% GEL 15 GM TUBE PO PRN (19:35)
[2025-08-30] MEDS ORDERED: GLUCOSE 10 TAB/TUBE PO PRN (19:35)
[2025-08-30] MEDS ORDERED: PHARMACY GLYCEMIC MGMT CONSULT PRN (19:35)
[2025-08-30] MEDS ORDERED: LABETALOL HCL IV 5 MG/ML 20ML IV PRN (19:53)
[2025-08-30] MEDS ORDERED: ONDANSETRON INJ 2 MG/ML 2 ML VIAL IV PRN (20:22)
[2025-08-30] MEDS: ENOXAPARIN INJ 40 MG/0.4 ML SYR SQ SCH (20:29)
[2025-08-30] MEDS: AMITRIPTYLINE HCL 25 MG TAB PO SCH (20:29)
[2025-08-30] MEDS: SODIUM CHLORIDE 1 GM TABLET PO SCH (20:29)
[2025-08-30] MEDS: GABAPENTIN 800 MG TAB PO SCH (20:29)
[2025-08-30] MEDS: LANTUS PER UNIT CHARGE SC ONE (20:30)
[2025-08-30] MEDS: INSULIN ASPART PER UNIT CHARGE SC SCH (20:30)
[2025-08-31 06:59] LABS: Hematocrit (blood only) 38.6 % (42.0-52.0); Hemoglobin 13.5 g/dL (14.0-18.0); Mean Corpuscular Hemoglobin 31.8 pg (25.0-34.0); Mean Corpuscular Volume 90.8 fL (80.0-100.0); Platelet Count 263 K/uL (130-400); RDW Standard Deviation 39.9 fL (36.4-46.3); Red Blood Count 4.25 M/uL (4.70-6.10); White Blood Count 12.08 K/ul (4.8-10.8)
[2025-08-31 07:22] LABS: Albumin Level 3.6 gm/dl (3.4-5.0); Anion Gap 7.0 (3-11); Blood Urea Nitrogen 11.0 mg/dl (6-23); Calcium 8.3 mg/dl (8.6-10.3); Carbon Dioxide 26.0 mmol/L (21-32); Chloride 97.0 mmol/L (98-107); Creatinine Clr Calc Pharmacy 134.8 ml/min; Glucose 145.0 mg/dl (70-99(Fasting)); Potassium 3.5 mmol/L (3.5-5.1); Sodium 130.0 mmol/L (136-145)
[2025-08-31 08:33] LABS: Hemoglobin A1C 8.5 % (4.5-5.6)
--- NOTE | 2025-08-31 08:43 | Hospitalist Progress Note ---
Date of Service August 31, 2025 Assessment & Plan (1) Hypertensive encephalopathy: (2) Type 1 diabetes mellitus: (3) History of hemorrhagic cerebrovascular accident (CVA) with residual deficit: (4) Hematoma of iliopsoas muscle: Plan In summary this is a 75-year-old male who presents after an unwitnessed ground- level fall with persistent altered mental status #Altered mental status // Hypertensive encephalopathy // Unwitnessed ground level fall Presented with encephalopathy which has now resolved; there does not appear to be any clear infectious component nor is there evidence of a significant metabolic derangement that would explain this condition; structural assessment with radiographic imaging does not suggest any kind of intracerebral or spinal pathology that would explain this; the patient's persistently elevated blood pressure may have caused acute encephalopathic change; it is unknown if the patient took their usual morning medications prior to their presentation to the emergency department. Unusually, the patient does have some sperm noted in their urinalysis, with their prolonged confusion, this may be a postictal state though this would be quite protracted for such condition, I do not suspect that this is nonconvulsive status epilepticus given his ability to participate in a physical exam and describes certain symptoms to me however the patient does have risk factors for developing seizures Continue home antihypertensive regimen Nursing staff notified if attending physician of systolic blood pressure in excess of 210 mmHg and/or diastolic in excess of 110 mmHg; if these measures are noted, would recommend labetalol 10 mg IV one-time with reassessment 30 minutes after administration Pending EEG #Right iliopsoas hematoma, clinically chronic Incidentally found with imaging during the patient's assessment in the emergency department is a right iliopsoas hematoma; the patient's blood count is normal, the description of their fall is not consistent with one that should necessarily cause an acute hematoma especially not being prescribed any antiplatelet or anticoagulant agents; I suspect this is an old injury especially with the presence of ossification within the hematoma, we will follow the patient's blood count and symptoms to determine any need for repeat imaging If repeat imaging is indicated acutely, would recommend obtaining a CT angiogram of the abdomen and pelvis to assess for any arterial extravasation The remainder the patient's chronic medical conditions are stable and do not require adjustment to their outpatient regimen at this time DVT PPx: Continue Lovenox 40 mg SQ daily GI PPx: Not indicated Admission and Anticipated Discharge Date Admission Date: August 30, 2025 Subjective Mr. Puente is a 75-year-old male whose active medical conditions include right hemiparesis with motor dysfunction, type 1 diabetes mellitus with peripheral vascular disease and peripheral neuropathy, among other chronic medical conditions who presented to [facility] on 08/30 after an unwitnessed fall at their care facility. There was subsequently brought to the emergency department for continued evaluation. No acute overnight events; two episodes of emesis, nonbloody and nonbilious; alert an oriented at bedside today, interested in discussing his insulin regimen. Denies any pain, discomfort, or concerns other than his insulin regimen Review of Systems Review of Systems: Review of constitutional, cardiovascular, pulmonary, musculoskeletal, neurologic, gastrointestinal, genitourinary systems was unremarkable except for pertinent positive and negative findings discussed above Physical Exam Physical Exam: General: Elderly male in no acute distress Vital Signs: Reviewed; improved blood pressure measures overnight HEENT: Pupils equally round and reactive to light, extraocular motion intact; tacky mucous membranes; overlying the left temporal region there is a soft nontender mass is approximately 2 cm in its widest diameter Neck: Trachea midline, no appreciable jugular venous distention Pulmonary: Symmetric chest wall excursion without restriction; clear to auscultation bilaterally Cardiovascular: Regular rate and rhythm without murmurs, rubs, or gallops; S1 and S2 normal; right radial pulse and left radial pulse 2+ without notable lower extremity edema Gastrointestinal: Protuberant, soft, nontender; bowel sounds with normal frequency and pitch Musculoskeletal: Atrophy of the right upper and lower extremity with diminished range of motion in active and passive assessment; left upper and lower extremity with normal tone Neurologic: Cranial nerves II through XII grossly intact; right upper and lower extremity strength 3/5 with left upper and lower extremity strength 4/5; expressive aphasia noted, consistent with previous deficits from CVA Skin: No notable ecchymoses, palpable hematomas, skin tears, or lacerations Results & Data Results & Data Vital Signs (Past 12 Hours) Vital Signs Temp Pulse Resp BP BP Pulse Ox O2 Del Method 08/31/25 07:18 36.5 C 104 H 16 131/71 96 Room Air 08/31/25 04:13 36.8 C 106 H 18 148/77 H 93 Room Air Laboratory Results Leukocytosis 12 from 13 Serum sodium 130 from 126 PG Care Time/CCT Total # of Minutes Spent Total Time Spent with Patient: Total time spent is greater than 50% in coordination of care (as documented) at patient's floor/unit and/or counseling patient: Coding Level of Care Code 47391 SUB INP/OBS CARE 2/35MIN Diagnoses Hypertensive encephalopathy I67.4 Type 1 diabetes mellitus with diabetic polyneuropathy E10.42 Diabetes mellitus complication detail: with polyneuropathy Diabetes mellitus complication status: with neurologic complications History of hemorrhagic cerebrovascular accident (CVA) with residual deficit I69.30 Hematoma of right iliopsoas muscle, initial encounter S70.11XA Encounter type: initial encounter Laterality: right (2) Type 1 diabetes mellitus Diabetes mellitus complication detail: with polyneuropathy Diabetes mellitus complication status: with neurologic complications Qualified Code(s): E10.42 - Type 1 diabetes mellitus with diabetic polyneuropathy (4) Hematoma of iliopsoas muscle Encounter type: initial encounter Laterality: right Qualified Code(s): S70.11XA - Contusion of right thigh, initial encounter
[2025-08-31] MEDS: ATORVASTATIN 40 MG TAB PO SCH (09:59)
[2025-08-31] MEDS: ATENOLOL 25 MG TABLET PO SCH (09:59)
[2025-08-31] MEDS: FUROSEMIDE 20 MG TAB PO SCH (09:59)
[2025-08-31] MEDS: VIBEGRON 75 MG TAB PO SCH (10:00)
[2025-08-31] MEDS: ENALAPRIL MALEATE 5 MG TAB PO SCH (10:01)
[2025-08-31] MEDS: LANTUS PER UNIT CHARGE SC SCH (20:42)
[2025-09-01 06:57] LABS: Hematocrit (blood only) 39.7 % (42.0-52.0); Hemoglobin 13.5 g/dL (14.0-18.0); Mean Corpuscular Hemoglobin 31.8 pg (25.0-34.0); Mean Corpuscular Volume 93.4 fL (80.0-100.0); Platelet Count 251 K/uL (130-400); RDW Standard Deviation 41.2 fL (36.4-46.3); Red Blood Count 4.25 M/uL (4.70-6.10); White Blood Count 11.46 K/ul (4.8-10.8)
[2025-09-01 07:19] LABS: Albumin Level 3.5 gm/dl (3.4-5.0); Anion Gap 8.0 (3-11); Blood Urea Nitrogen 15.0 mg/dl (6-23); Calcium 8.2 mg/dl (8.6-10.3); Carbon Dioxide 26.0 mmol/L (21-32); Chloride 93.0 mmol/L (98-107); Creatinine Clr Calc Pharmacy 140.0 ml/min; Glucose 153.0 mg/dl (70-99(Fasting)); Potassium 4.2 mmol/L (3.5-5.1); Sodium 127.0 mmol/L (136-145)
--- NOTE | 2025-09-01 13:49 | Hospitalist Progress Note ---
Date of Service September 01, 2025 Assessment & Plan (1) Hypertensive encephalopathy: (2) Type 1 diabetes mellitus: (3) History of hemorrhagic cerebrovascular accident (CVA) with residual deficit: (4) Hematoma of iliopsoas muscle: Plan In summary this is a 75-year-old male who presents after an unwitnessed ground- level fall with persistent altered mental status #Altered mental status // Hypertensive encephalopathy // Unwitnessed ground level fall Presented with encephalopathy which has now resolved; there does not appear to be any clear infectious component nor is there evidence of a significant metabolic derangement that would explain this condition; structural assessment with radiographic imaging does not suggest any kind of intracerebral or spinal pathology that would explain this; the patient's persistently elevated blood pressure may have caused acute encephalopathic change; it is unknown if the patient took their usual morning medications prior to their presentation to the emergency department. Unusually, the patient does have some sperm noted in their urinalysis, with their prolonged confusion, this may be a postictal state though this would be quite protracted for such condition, I do not suspect that this is nonconvulsive status epilepticus given his ability to participate in a physical exam and describes certain symptoms to me however the patient does have risk factors for developing seizures Continue home antihypertensive regimen Nursing staff notified if attending physician of systolic blood pressure in excess of 210 mmHg and/or diastolic in excess of 110 mmHg; if these measures are noted, would recommend labetalol 10 mg IV one-time with reassessment 30 minutes after administration Pending EEG #Right iliopsoas hematoma, clinically chronic Incidentally found with imaging during the patient's assessment in the emergency department is a right iliopsoas hematoma; the patient's blood count is normal, the description of their fall is not consistent with one that should necessarily cause an acute hematoma especially not being prescribed any antiplatelet or anticoagulant agents; I suspect this is an old injury especially with the presence of ossification within the hematoma, we will follow the patient's blood count and symptoms to determine any need for repeat imaging If repeat imaging is indicated acutely, would recommend obtaining a CT angiogram of the abdomen and pelvis to assess for any arterial extravasation The remainder the patient's chronic medical conditions are stable and do not require adjustment to their outpatient regimen at this time DVT PPx: Continue Lovenox 40 mg SQ daily GI PPx: Not indicated Pending EEG; anticipate return to the [facility] upon discharge, hopeful for 12/22 Admission and Anticipated Discharge Date Admission Date: August 30, 2025 Subjective Mr. Puente is a 75-year-old male whose active medical conditions include right hemiparesis with motor dysfunction, type 1 diabetes mellitus with peripheral vascular disease and peripheral neuropathy, among other chronic medical conditions who presented to [facility] on 08/30 after an unwitnessed fall at their care facility. There was subsequently brought to the emergency department for continued evaluation. No acute overnight events; continues to feel well. Minimally active in the room, per nursing report Review of Systems Review of Systems: Review of constitutional, cardiovascular, pulmonary, musculoskeletal, neurologic, gastrointestinal, genitourinary systems was unremarkable except for pertinent positive and negative findings discussed above Physical Exam Physical Exam: General: Elderly male in no acute distress Vital Signs: Reviewed HEENT: Pupils equally round and reactive to light, extraocular motion intact; tacky mucous membranes; overlying the left temporal region there is a soft nontender mass is approximately 2 cm in its widest diameter Neck: Trachea midline, no appreciable jugular venous distention Pulmonary: Symmetric chest wall excursion without restriction; clear to auscultation bilaterally Cardiovascular: Regular rate and rhythm without murmurs, rubs, or gallops; S1 and S2 normal; right radial pulse and left radial pulse 2+ without notable lower extremity edema Gastrointestinal: Protuberant, soft, nontender; bowel sounds with normal frequency and pitch Musculoskeletal: Atrophy of the right upper and lower extremity with diminished range of motion in active and passive assessment; left upper and lower extremity with normal tone Neurologic: Cranial nerves II through XII grossly intact; right upper and lower extremity strength 3/5 with left upper and lower extremity strength 4/5; expressive aphasia noted, consistent with previous deficits from CVA Skin: No notable ecchymoses, palpable hematomas, skin tears, or lacerations Results & Data Results & Data Vital Signs (Past 12 Hours) Vital Signs Temp Pulse Resp BP Pulse Ox O2 Del Method 09/01/25 07:36 36.8 C 105 H 20 149/81 H 93 Room Air PG Care Time/CCT Total # of Minutes Spent Total Time Spent with Patient: Total time spent is greater than 50% in coordination of care (as documented) at patient's floor/unit and/or counseling patient: Coding Level of Care Code 80728 SUB INP/OBS CARE 2/35MIN Diagnoses Hypertensive encephalopathy I67.4 Type 1 diabetes mellitus with diabetic polyneuropathy E10.42 Diabetes mellitus complication status: with neurologic complications Diabetes mellitus complication detail: with polyneuropathy History of hemorrhagic cerebrovascular accident (CVA) with residual deficit I69.30 Hematoma of right iliopsoas muscle, initial encounter S70.11XA Encounter type: initial encounter Laterality: right (2) Type 1 diabetes mellitus Diabetes mellitus complication status: with neurologic complications Diabetes mellitus complication detail: with polyneuropathy Qualified Code(s): E10.42 - Type 1 diabetes mellitus with diabetic polyneuropathy (4) Hematoma of iliopsoas muscle Encounter type: initial encounter Laterality: right Qualified Code(s): S70.11XA - Contusion of right thigh, initial encounter
--- NOTE | 2025-09-01 14:37 | Pharmacy Report ---
Pharmacy Glycemic Short Note 2 - Date of Service September 01, 2025 - Glycemic Short BSG Results (Last 24 hours): 08/31/25 08/31/25 09/01/25 16:44 20:32 06:36 Glucose 153 H POC Glucose 139 H 190 H 09/01/25 09/01/25 08:02 11:33 Glucose POC Glucose 151 H 207 H OUTPATIENT ANTIDIABETIC REGIMEN: * Glargine 20 units SQ qPM * Lispro 8-9 units with meals ASSESSMENT: * Mr. Puente is a 75 yo male with h/o type 1 diabetes mellitus who presented on 08/30 after an unwitnessed fall at his care facility. * Fasting BSG of 122 and 151 mg/dL on home dose of basal insulin. Will continue this dose today. If fasting continues to trend upward, can increase. * Will adjust Novolog orders to match what worked well for this patient during past admission. PLAN FOR INPATIENT GLYCEMIC CONTROL: * Hold outpatient oral diabetes medications * Basal insulin * Lantus 20 units SQ HS * Bolus insulin * NovoLog per scale ACHS or Q6hrs while NPO * Goal Range: Low 110 mg/dL - High 140 mg/dL Breakfast/lunch/dinner: * Correction Factor: 30 mg/dL/unit * Nutritional / Prandial insulin per carb ratio of 1 unit per 7 grams CHO consumed Bedtime: * Correction Factor: 35 mg/dL/unit * Nutritional / Prandial insulin per carb ratio of 1 unit per 11 grams CHO consumed
[2025-09-01] MEDS: INSULIN ASPART PER UNIT CHARGE SC SCH ×2 (18:18→21:45)
[2025-09-02 06:23] LABS: Hematocrit (blood only) 40.1 % (42.0-52.0); Hemoglobin 13.6 g/dL (14.0-18.0); Mean Corpuscular Hemoglobin 31.7 pg (25.0-34.0); Mean Corpuscular Volume 93.5 fL (80.0-100.0); Platelet Count 266 K/uL (130-400); RDW Standard Deviation 41.5 fL (36.4-46.3); Red Blood Count 4.29 M/uL (4.70-6.10); White Blood Count 11.29 K/ul (4.8-10.8)
[2025-09-02 06:38] LABS: Albumin Level 3.4 gm/dl (3.4-5.0); Anion Gap 7.0 (3-11); Blood Urea Nitrogen 15.0 mg/dl (6-23); Calcium 8.1 mg/dl (8.6-10.3); Carbon Dioxide 27.0 mmol/L (21-32); Chloride 94.0 mmol/L (98-107); Creatinine Clr Calc Pharmacy 140.0 ml/min; Glucose 134.0 mg/dl (70-99(Fasting)); Potassium 4.1 mmol/L (3.5-5.1); Sodium 128.0 mmol/L (136-145)
--- NOTE | 2025-09-02 08:33 | Electroencephalogram ---
EEG Procedure Note Date of Service September 02, 2025 Start / End Times Start Time: 620 End Time: [address] Louie History 75-year-old with new onset altered mental status. Patient has a history of hemorrhagic stroke, left subcortical in 1999, diabetes, and mild cognitive impairment Home Medication List Medication Instructions Recorded Confirmed Type amitriptyline 25 mg tablet 25 mg PO HS #90 tabs 10/17/24 08/30/25 Rx benazepril 10 mg tablet 10 mg PO DAILY 12/30/24 08/30/25 History insulin glargine 100 unit/mL (3 20 unit subcut QPM 02/06/25 08/30/25 History mL) subcutaneous pen (Lantus Solostar U-100 Insulin) mirabegron 50 mg tablet,extended 50 mg PO DAILY #90 tabs 05/29/25 08/30/25 Rx release 24 hr (Myrbetriq) glucagon 1 mg/0.2 mL subcutaneous 1 mg (0.2 mL) subcut ONCE PRN 06/05/25 08/30/25 Rx auto-injector (Gvoke HypoPen severe hypoglycemia #0.4 mL 2-Pack) blood-glucose sensor (Dexcom G7 #3 ea 06/24/25 Rx Sensor device) atorvastatin 80 mg tablet 80 mg PO DAILY 90 days #90 tabs 07/18/25 08/30/25 Rx gabapentin 800 mg tablet 800 mg PO TID #180 tabs 08/14/25 08/30/25 Rx pen needle, diabetic 32 gauge x #500 ea 08/19/25 Rx 5/32" (1st Tier Unifine Pentips Plus) atenolol 25 mg tablet 12.5 mg PO DAILY 08/30/25 08/30/25 History docusate sodium 100 mg tablet 200 - 400 mg PO DAILY 08/30/25 08/30/25 History furosemide 20 mg tablet (Lasix) 0 mg PO DAILY 08/30/25 08/30/25 History insulin lispro 100 unit/mL 1 sliding scale dose subcut UD 08/30/25 08/30/25 History subcutaneous pen (Humalog KwikPen (U-100) Insulin) oxycodone 5 mg tablet 5 - 10 mg PO Q12 PRN Pain 08/30/25 08/30/25 History sodium chloride 1,000 mg soluble 0 mg PO BID 08/30/25 08/30/25 History tablet Inpatient Medication List Amitriptyline HCl (Amitriptyline Hcl 25 Mg Tab) 25 mg PO HS ISABEL Stop: 09/29/25 20:59 Last Admin: 09/01/25 21:44 Dose: 25 mg Documented By: Admin: 08/31/25 20:42 Dose: 25 mg Documented By: Admin: 08/30/25 20:29 Dose: 25 mg Documented By: dickson Atenolol (Atenolol 25 Mg Tablet) 12.5 mg PO DAILY ISABEL Stop: 09/30/25 08:59 Last Admin: 09/01/25 08:19 Dose: 12.5 mg Documented By: jose Admin: 08/31/25 09:59 Dose: 12.5 mg Documented By: jose Atorvastatin Calcium (Atorvastatin 40 Mg Tab) 80 mg PO DAILY ISABEL Stop: 09/30/25 08:59 Last Admin: 09/01/25 08:19 Dose: 80 mg Documented By: jose Admin: 08/31/25 09:59 Dose: 80 mg Documented By: jose Bisacodyl (Bisacodyl 5 Mg Tabec) 5 mg PO HS ISABEL Stop: 10/01/25 20:59 Last Admin: 09/01/25 21:44 Dose: 5 mg Documented By: HERON Enalapril Maleate (Enalapril Maleate 5 Mg Tab) 5 mg PO DAILY ISABEL Stop: 09/30/25 08:59 Last Admin: 09/01/25 08:20 Dose: 5 mg Documented By: jose Admin: 08/31/25 10:01 Dose: 5 mg Documented By: jose Enoxaparin Sodium (Enoxaparin Inj 40 Mg/0.4 Ml Syr) 40 mg SQ Q24H ISABEL Stop: 09/29/25 20:59 Last Admin: 09/01/25 21:44 Dose: 40 mg Documented By: Admin: 08/31/25 20:42 Dose: 40 mg Documented By: Admin: 08/30/25 20:29 Dose: 40 mg Documented By: dcikson Furosemide (Furosemide 20 Mg Tab) 20 mg PO DAILY ISABEL Stop: 09/30/25 08:59 Last Admin: 09/01/25 08:39 Dose: 20 mg Documented By: jose Admin: 08/31/25 09:59 Dose: 20 mg Documented By: jose Gabapentin (Gabapentin 800 Mg Tab) 800 mg PO TID ISABEL Stop: 09/29/25 20:59 Last Admin: 09/01/25 21:44 Dose: 800 mg Documented By: Admin: 09/01/25 13:01 Dose: 800 mg Documented By: jose Admin: 09/01/25 08:19 Dose: 800 mg Documented By: jose Admin: 08/31/25 20:42 Dose: 800 mg Documented By: Admin: 08/31/25 14:34 Dose: 800 mg Documented By: jose Admin: 08/31/25 09:59 Dose: 800 mg Documented By: jose Admin: 08/30/25 20:29 Dose: 800 mg Documented By: dickson Insulin Aspart (Insulin Aspart Per Unit Charge) 0 units SC 0730,1130,1630 ISABEL Stop: 10/01/25 16:29 Last Admin: 09/01/25 18:18 Dose: 6 units Documented By: jose Co-signed By: JENNY Insulin Aspart (Insulin Aspart Per Unit Charge) 0 units SC [facility] Stop: 10/01/25 20:59 Last Admin: 09/01/25 21:45 Dose: 1 units Documented By: HERON Co-signed By: KATY Insulin Glargine (Lantus Per Unit Charge) 20 units SC [facility] Stop: 09/30/25 20:59 Last Admin: 09/01/25 21:45 Dose: 20 units Documented By: HERON Co-signed By: KATY Admin: 08/31/25 20:42 Dose: 20 units Documented By: ILENE Co-signed By: dickson Sodium Chloride (Sodium Chloride 1 Gm Tablet) 1 gm PO BID ISABEL Stop: 09/29/25 20:59 Last Admin: 09/01/25 21:44 Dose: 1 gm Documented By: Admin: 09/01/25 08:19 Dose: 1 gm Documented By: jose Admin: 08/31/25 20:44 Dose: Not Given Documented By: Admin: 08/31/25 10:00 Dose: 1 gm Documented By: jose Admin: 08/30/25 20:29 Dose: 1 gm Documented By: dickson Vibegron (Vibegron 75 Mg Tab) 75 mg PO DAILY ISABEL Stop: 09/30/25 08:59 Last Admin: 09/01/25 08:19 Dose: 75 mg Documented By: joes Admin: 08/31/25 10:00 Dose: 75 mg Documented By: jose Discontinued Medications Guaifenesin/Dextromethorphan (Guaifenesin/Dextrom Syrup 100mg/10mg 5ml Udc) 5 ml PO NOW ONE Stop: 09/01/25 21:21 Last Admin: 09/01/25 21:44 Dose: 5 ml Documented By: HERON Acetaminophen (Ofirmev) 1,000 mg in 100 mls @ 400 mls/hr IV NOW STA Stop: 08/30/25 13:55 Last Infusion: 08/30/25 16:51 Dose: Infused Documented By: Admin: 08/30/25 14:02 Dose: 400 mls/hr Documented By: sak Sodium Chloride (Nss) 1,000 mls @ 999 mls/hr IV .Q1H1M ONE Stop: 08/30/25 15:18 Last Infusion: 08/30/25 16:52 Dose: Infused Documented By: Admin: 08/30/25 14:25 Dose: 999 mls/hr Documented By: ML Sodium Chloride (Nss) 1,000 mls @ 999 mls/hr IV .Q1H1M ONE Stop: 08/30/25 16:59 Last Infusion: 08/30/25 20:03 Dose: Infused Documented By: dickson Admin: 08/30/25 16:47 Dose: 999 mls/hr Documented By: DAYDAY Insulin Aspart (Insulin Aspart Per Unit Charge) 0 units SC ACHS ISABEL Stop: 09/29/25 19:34 Last Admin: 09/01/25 12:58 Dose: 10 units Documented By: jose Co-signed By: [email or web address] Admin: 09/01/25 09:14 Dose: 9 units Documented By: jose Co-signed By: [email or web address] Admin: 08/31/25 20:42 Dose: 2 units Documented By: ILENE Co-signed By: dickson Admin: 08/31/25 18:17 Dose: 5 units Documented By: jose Co-signed By: TBK Admin: 08/31/25 13:21 Dose: 6 units Documented By: jose Co-signed By: JENNY Admin: 08/31/25 09:36 Dose: 7 units Documented By: jose Co-signed By: TBK Admin: 08/30/25 23:07 Dose: Not Given Documented By: dickson Admin: 08/30/25 20:30 Dose: 1 units Documented By: dickson Co-signed By: ILENE Insulin Glargine (Lantus Per Unit Charge) 20 units SC ONE ONE Stop: 08/30/25 21:01 Last Admin: 08/30/25 20:30 Dose: 20 units Documented By: dickson Co-signed By: ILENE Ioversol (Optiray 320 100ml) 94 ml IV ONCE ONE Stop: 08/30/25 15:47 Last Admin: 08/30/25 15:47 Dose: 94 ml Documented By: JLUIS Labetalol HCl (Labetalol Hcl Iv 5 Mg/Ml 20ml) 10 mg IV NOW STA Stop: 08/30/25 14:34 Last Admin: 08/30/25 14:38 Dose: 10 mg Documented By: OWEN Description This is a 21 electrode EEG with a single channel dedicated to limited EKG. The electrodes were placed in accordance with the International 10-20 system. Interpretation The predominant background activity consists of a fairy well modulated 8 Hz activity, of up to 50 mV in amplitude, seen symmetrically distributed over the posterior head regions bilaterally spreading anteriorly symmetrically. This activity attenuates some with eye-opening and other alerting procedures. Photic stimulation was performed and elicited no change in the background activity and no abnormal responses were seen. Hyperventilation was not performed. A considerable about and movement artifact activity contaminated the recording. In the beginning of this tracing, there were multiple electrode artifact issues, fixed by the machine set up technician. The patient had movements and towards the end of the recording had episodes of coughing which created considerable artifact. Overall, the movement and artifact activity did not hinder interpretation in general Throughout the waking portion of the recording, no focal abnormalities, abnormal slow activity, or potentially epileptogenic discharges were seen. The patient entered the drowsy state and brief periods of stage II sleep with no further activation. In summary, despite the artifact present, this EEG was essentially normal during wakefulness and light sleep. No focal abnormalities, potentially epileptogenic discharges, or abnormal slow activity were seen. Clinical Correlation The absence of potentially epileptogenic activity does not exclude a seizure disorder, since interictally, EEGs can be normal. Clinical correlation is required. [facility] Procedure Codes Indication for Procedure (1) Hypertensive encephalopathy: (2) Mild cognitive impairment: Neurology Neurology: 17145 EEG include record awake & sleepy
[2025-09-02] MEDS: POLYETHYLENE (MIRALAX) 17 GM PACK PO SCH (09:06)
[2025-09-02] MEDS: COUGH DROP (SUGAR FREE) LOZ 24 LOZ/1 BOX BUCCAL ONE (12:00)
--- NOTE | 2025-09-03 00:32 | Hospitalist Progress Note ---
Date of Service September 02, 2025 Assessment & Plan (1) Hypertensive encephalopathy: (2) Type 1 diabetes mellitus: (3) History of hemorrhagic cerebrovascular accident (CVA) with residual deficit: (4) Hematoma of iliopsoas muscle: Plan In summary this is a 75-year-old male who presents after an unwitnessed ground- level fall with persistent altered mental status #Altered mental status // Hypertensive encephalopathy // Unwitnessed ground level fall Presented with encephalopathy which has now resolved; there does not appear to be any clear infectious component nor is there evidence of a significant metabolic derangement that would explain this condition; structural assessment with radiographic imaging does not suggest any kind of intracerebral or spinal pathology that would explain this; the patient's persistently elevated blood pressure may have caused acute encephalopathic change; it is unknown if the patient took their usual morning medications prior to their presentation to the emergency department. Unusually, the patient does have some sperm noted in their urinalysis, with their prolonged confusion, this may be a postictal state though this would be quite protracted for such condition, I do not suspect that this is nonconvulsive status epilepticus given his ability to participate in a physical exam and describes certain symptoms to me however the patient does have risk factors for developing seizures Continue home antihypertensive regimen Nursing staff notified if attending physician of systolic blood pressure in excess of 210 mmHg and/or diastolic in excess of 110 mmHg; if these measures are noted, would recommend labetalol 10 mg IV one-time with reassessment 30 minutes after administration EEG was negatve. #Right iliopsoas hematoma, clinically chronic Incidentally found with imaging during the patient's assessment in the emergency department is a right iliopsoas hematoma; the patient's blood count is normal, the description of their fall is not consistent with one that should necessarily cause an acute hematoma especially not being prescribed any antiplatelet or anticoagulant agents; I suspect this is an old injury especially with the presence of ossification within the hematoma, we will follow the patient's blood count and symptoms to determine any need for repeat imaging Hemoglobin is stable, will hold further imaging at this time #acute hyponatremia: Sodium has been fluctuating, may consider sodium tablets and will recommend repeat in 1 week. The remainder the patient's chronic medical conditions are stable and do not require adjustment to their outpatient regimen at this time DVT PPx: Continue Lovenox 40 mg SQ daily GI PPx: Not indicated Hopeful discharge on 12/[address] Admission and Anticipated Discharge Date Admission Date: August 30, 2025 Subjective Patient reports no new symptoms Physical Exam Physical Exam: General: Elderly male in no acute distress Vital Signs: Reviewed HEENT: Pupils equally round and reactive to light, overlying the left temporal region there is a soft nontender mass is approximately 2 cm in its widest diameter Neck: Trachea midline, no appreciable jugular venous distention Pulmonary: CTA B/L Cardiovascular: Regular rate and rhythm without murmurs, rubs, or gallops; S1 and S2 normal; Gastrointestinal: Protuberant, soft, nontender; bowel sounds with normal freque ncy and pitch Musculoskeletal: Atrophy of the right upper and lower extremity with diminished range of motion in active and passive assessment; left upper and lower extremity with normal tone Neurologic: Cranial nerves II through XII grossly intact; right upper and lower extremity strength 3/5 with left upper and lower extremity strength 4/5; expressive aphasia noted, consistent with previous deficits from CVA Skin: No notable ecchymoses, palpable hematomas, skin tears, or lacerations Results & Data Results & Data Vital Signs (Past 12 Hours) Vital Signs Temp Pulse Resp BP Pulse Ox O2 Del Method 09/02/25 22:12 Room Air 09/02/25 22:10 37.1 C 94 H 18 170/76 H 95 Room Air 09/02/25 14:44 36.7 C 86 16 155/76 H 95 Room Air PG Care Time/CCT Total # of Minutes Spent Total Time Spent with Patient: Total time spent is greater than 50% in coordination of care (as documented) at patient's floor/unit and/or counseling patient: Coding Level of Care Code 15775 SUB INP/OBS CARE 3/50MIN Diagnoses Hypertensive encephalopathy I67.4 Type 1 diabetes mellitus with diabetic polyneuropathy E10.42 Diabetes mellitus complication detail: with polyneuropathy Diabetes mellitus complication status: with neurologic complications History of hemorrhagic cerebrovascular accident (CVA) with residual deficit I69.30 Hematoma of right iliopsoas muscle, initial encounter S70.11XA Encounter type: initial encounter Laterality: right (2) Type 1 diabetes mellitus Diabetes mellitus complication detail: with polyneuropathy Diabetes mellitus complication status: with neurologic complications Qualified Code(s): E10.42 - Type 1 diabetes mellitus with diabetic polyneuropathy (4) Hematoma of iliopsoas muscle Encounter type: initial encounter Laterality: right Qualified Code(s): S70.11XA - Contusion of right thigh, initial encounter
[2025-09-03] MEDS: INSULIN ASPART PER UNIT CHARGE SC SCH ×2 (08:21→12:32)
[2025-09-03 11:56] LABS: Hematocrit (blood only) 39.2 % (42.0-52.0); Hemoglobin 14.0 g/dL (14.0-18.0); Mean Corpuscular Hemoglobin 32.7 pg (25.0-34.0); Mean Corpuscular Volume 91.6 fL (80.0-100.0); Platelet Count 309 K/uL (130-400); RDW Standard Deviation 40.0 fL (36.4-46.3); Red Blood Count 4.28 M/uL (4.70-6.10); White Blood Count 10.41 K/ul (4.8-10.8)
[2025-09-03 12:11] LABS: Anion Gap 8.0 (3-11); Blood Urea Nitrogen 13.0 mg/dl (6-23); Calcium 8.4 mg/dl (8.6-10.3); Carbon Dioxide 26.0 mmol/L (21-32); Chloride 91.0 mmol/L (98-107); Creatinine Clr Calc Pharmacy 130.0 ml/min; Glucose 211.0 mg/dl (70-99(Fasting)); Potassium 4.2 mmol/L (3.5-5.1); Sodium 125.0 mmol/L (136-145)
--- NOTE | 2025-09-03 12:50 | Pharmacy Report ---
Pharmacy Glycemic Short Note 2 - Date of Service September 03, 2025 - Glycemic Short BSG Results (Last 24 hours): 09/02/25 09/02/25 09/03/25 16:50 20:07 07:45 Glucose POC Glucose 121 H 209 H 174 H 09/03/25 09/03/25 11:20 11:29 Glucose 211 H POC Glucose 221 H OUTPATIENT ANTIDIABETIC REGIMEN: * Glargine 20 units SQ qPM * Lispro 8-9 units with meals ASSESSMENT: 09/03: * Ana received a total of 47 units of insulin yesterday (20 units were basal and 27 units were bolus). BSGs were [phone]/dL. * Fasting BSG was 174mg/dL this morning. Will increase HS Lantus by 10% and will adjust bolus insulin regimen so that tighter with breakfast and then looser the rest of the day in order to help with the high lunch time BSGs seen the last few days. 09/01: * Mr. Puente is a 75 yo male with h/o type 1 diabetes mellitus who presented on 08/30 after an unwitnessed fall at his care facility. * Fasting BSG of 122 and 151 mg/dL on home dose of basal insulin. Will continue this dose today. If fasting continues to trend upward, can increase. * Will adjust Novolog orders to match what worked well for this patient during past admission. PLAN FOR INPATIENT GLYCEMIC CONTROL: * Hold outpatient oral diabetes medications * Basal insulin * Lantus 22 units SQ HS * Bolus insulin * NovoLog per scale ACHS or Q6hrs while NPO * Goal Range: Low 110 mg/dL - High 140 mg/dL Breakfast: * Correction Factor: 25 mg/dL/unit * Nutritional / Prandial insulin per carb ratio of 1 unit per 6 grams CHO consumed Lunch, Dinner, HS: * Correction Factor: 30 mg/dL/unit * Nutritional / Prandial insulin per carb ratio of 1 unit per 9 grams CHO consumed
[2025-09-03] MEDS: SODIUM CHLORIDE 1 GM TABLET PO ONE (14:31)
[2025-09-03] MEDS: LANTUS PER UNIT CHARGE SC SCH (21:18)
[2025-09-03] MEDS: SODIUM CHLORIDE 1 GM TABLET PO SCH (21:38)
[2025-09-03 23:01] VITALS: O2SAT 95
--- NOTE | 2025-09-03 23:57 | Hospitalist Progress Note ---
Date of Service September 03, 2025 Assessment & Plan (1) Hypertensive encephalopathy: (2) Type 1 diabetes mellitus: (3) History of hemorrhagic cerebrovascular accident (CVA) with residual deficit: (4) Hematoma of iliopsoas muscle: Plan In summary this is a 75-year-old male who presents after an unwitnessed ground- level fall with persistent altered mental status #Altered mental status // Hypertensive encephalopathy // Unwitnessed ground level fall Presented with encephalopathy which has now resolved; there does not appear to be any clear infectious component nor is there evidence of a significant metabolic derangement that would explain this condition; structural assessment with radiographic imaging does not suggest any kind of intracerebral or spinal pathology that would explain this; the patient's persistently elevated blood pressure may have caused acute encephalopathic change; it is unknown if the patient took their usual morning medications prior to their presentation to the emergency department. Unusually, the patient does have some sperm noted in their urinalysis, with their prolonged confusion, this may be a postictal state though this would be quite protracted for such condition, I do not suspect that this is nonconvulsive status epilepticus given his ability to participate in a physical exam and describes certain symptoms to me however the patient does have risk factors for developing seizures Continue home antihypertensive regimen Nursing staff notified if attending physician of systolic blood pressure in excess of 210 mmHg and/or diastolic in excess of 110 mmHg; if these measures are noted, would recommend labetalol 10 mg IV one-time with reassessment 30 minutes after administration EEG was negatve. Plan was to discharge but due to his hyponatremia, patient was kept. #Right iliopsoas hematoma, clinically chronic Incidentally found with imaging during the patient's assessment in the emergency department is a right iliopsoas hematoma; the patient's blood count is normal, the description of their fall is not consistent with one that should necessarily cause an acute hematoma especially not being prescribed any antiplatelet or anticoagulant agents; I suspect this is an old injury especially with the presence of ossification within the hematoma, we will follow the patient's blood count and symptoms to determine any need for repeat imaging Hemoglobin is stable, will hold further imaging at this time #acute worsening of his chronic hyponatremia: Sodium has been fluctuating, now 125, while he remains asymptomatiic, this is a significant decrease increased sodium tablets, continue lasix, fluid restriction. The remainder the patient's chronic medical conditions are stable and do not require adjustment to their outpatient regimen at this time DVT PPx: Continue Lovenox 40 mg SQ daily GI PPx: Not indicated Hopeful discharge on 09/04 if sodium improves, Spoke to son, Nursing facility can manage sodium. Admission and Anticipated Discharge Date Admission Date: August 30, 2025 Subjective Patient reports feeling well. Physical Exam Physical Exam: General: Elderly male in no acute distress Vital Signs: Reviewed Neck: Trachea midline Pulmonary: CTA B/L Cardiovascular: Regular rate and rhythm without murmurs, rubs, or gallops; S1 and S2 normal; Gastrointestinal: Protuberant, soft, nontender; bowel sounds with normal frequency and pitch Skin: No notable ecchymoses, palpable hematomas, skin tears, or lacerations Results & Data Results & Data Vital Signs (Past 12 Hours) Vital Signs Temp Pulse Resp BP Pulse Ox O2 Del Method 09/03/25 22:58 36.9 C 90 16 163/74 H 95 Room Air 09/03/25 21:30 Room Air 09/03/25 12:41 Room Air PG Care Time/CCT Total # of Minutes Spent Total Time Spent with Patient: Total time spent is greater than 50% in coordination of care (as documented) at patient's floor/unit and/or counseling patient: Coding Level of Care Code 29899 SUB INP/OBS CARE 3/50MIN Diagnoses Hypertensive encephalopathy I67.4 Type 1 diabetes mellitus with diabetic polyneuropathy E10.42 Diabetes mellitus complication detail: with polyneuropathy Diabetes mellitus complication status: with neurologic complications History of hemorrhagic cerebrovascular accident (CVA) with residual deficit I69.30 Hematoma of right iliopsoas muscle, initial encounter S70.11XA Encounter type: initial encounter Laterality: right (2) Type 1 diabetes mellitus Diabetes mellitus complication detail: with polyneuropathy Diabetes mellitus complication status: with neurologic complications Qualified Code(s): E10.42 - Type 1 diabetes mellitus with diabetic polyneuropathy (4) Hematoma of iliopsoas muscle Encounter type: initial encounter Laterality: right Qualified Code(s): S70.11XA - Contusion of right thigh, initial encounter
[2025-09-04 07:07] LABS: Hematocrit (blood only) 38.1 % (42.0-52.0); Hemoglobin 13.9 g/dL (14.0-18.0); Mean Corpuscular Hemoglobin 33.3 pg (25.0-34.0); Mean Corpuscular Volume 91.4 fL (80.0-100.0); Platelet Count 297 K/uL (130-400); RDW Standard Deviation 39.8 fL (36.4-46.3); Red Blood Count 4.17 M/uL (4.70-6.10); White Blood Count 12.26 K/ul (4.8-10.8)
[2025-09-04 07:51] LABS: Anion Gap 9.0 (3-11); Blood Urea Nitrogen 12.0 mg/dl (6-23); Calcium 8.3 mg/dl (8.6-10.3); Carbon Dioxide 27.0 mmol/L (21-32); Chloride 91.0 mmol/L (98-107); Creatinine Clr Calc Pharmacy 119.3 ml/min; Glucose 269.0 mg/dl (70-99(Fasting)); Potassium 4.7 mmol/L (3.5-5.1); Sodium 127.0 mmol/L (136-145)
--- NOTE | 2025-09-04 08:40 | Discharge Summary ---
Discharge Summary Date of Service September 04, 2025 Principal Dx & Hospital Course #1 = Principal Diagnosis (1) Hypertensive encephalopathy: (2) Type 1 diabetes mellitus: (3) History of hemorrhagic cerebrovascular accident (CVA) with residual deficit: (4) Hematoma of iliopsoas muscle: Plan In summary this is a 75-year-old male who presented after an unwitnessed ground- level fall with persistent altered mental status, found to be secondary to hypertensive encephalopathy which briskly resolved. #Altered mental status // Hypertensive encephalopathy // Unwitnessed ground level fall Presented with encephalopathy which has now resolved; there does not appear to be any clear infectious component nor is there evidence of a significant metabolic derangement that would explain this condition; structural assessment with radiographic imaging does not suggest any kind of intracerebral or spinal pathology that would explain this; for completeness an EEG was obtained which had no evidence of recent epileptic activity nor risk for such Continue home antihypertensive regimen EEG was negatve. #Right iliopsoas hematoma, clinically chronic Incidentally found with imaging during the patient's assessment in the emergency department is a right iliopsoas hematoma; the patient's blood count is normal, the description of their fall is not consistent with one that should necessarily cause an acute hematoma especially not being prescribed any antiplatelet or anticoagulant agents; I suspect this is an old injury especially with the presence of ossification within the hematoma, we will follow the patient's blood count and symptoms to determine any need for repeat imaging Hemoglobin is stable, will hold further imaging at this time #Chronic hyponatremia Asymptomatic; with correction of the patient's measured serum sodium based on their concomitant hyperglycemic measures, his sodium remains within a normal range; unrelated to the patient's initial presentation Admission HPI Per Admitting Provider Mr. Puente is a 75-year-old male whose active medical conditions include right hemiparesis with motor dysfunction, type 1 diabetes mellitus with peripheral vascular disease and peripheral neuropathy, among other chronic medical conditions who presented to [facility] on 08/30 after an unwitnessed fall at their care facility. There was subsequently brought to the emergency department for continued evaluation. Upon arrival here, the patient was in no acute distress, but per the the patient's son report he was available at bedside the patient was seemingly altered and more somnolent than his typical state. The patient, at the time my examination, was fatigued, but easily arousable and participated in his history and physical exam. The time my exam the patient denies any pain. He cannot recall the circumstances of his fall earlier on the day of presentation. He does endorse a cough which has been persistent for the past several days that is slightly productive but without hemoptysis. The patient denies any fevers, chills, nausea, vomiting, abdominal pain, altered urinary output or altered bowel movements. It is unknown when the patient last took their home medications. Discharge Exam General: Elderly male in no acute distress Vital Signs: Reviewed HEENT: Pupils equally round and reactive to light, extraocular motion intact; tacky mucous membranes; overlying the left temporal region there is a soft nontender mass is approximately 2 cm in its widest diameter, unchanged during hospitalization Neck: Trachea midline, no appreciable jugular venous distention Pulmonary: Symmetric chest wall excursion without restriction; clear to auscultation bilaterally Cardiovascular: Regular rate and rhythm without murmurs, rubs, or gallops; S1 and S2 normal; right radial pulse and left radial pulse 2+ without notable lower extremity edema Gastrointestinal: Protuberant, soft, nontender; bowel sounds with normal frequency and pitch Musculoskeletal: Atrophy of the right upper and lower extremity with diminished range of motion in active and passive assessment; left upper and lower extremity with normal tone Neurologic: Cranial nerves II through XII grossly intact; right upper and lower extremity strength 3/5 with left upper and lower extremity strength 4/5; expressive aphasia noted, consistent with previous deficits from CVA Skin: No notable ecchymoses, palpable hematomas, skin tears, or lacerations Discharge Plan Discharge Items Patient Disposition: Transfer Longterm Fac Reason For Visit: fall unwitnessed Discharge Diagnosis: Hypertensive encephalopathy Condition on Discharge: Fair Activity: Per Instructions section Non-emergency contact: Primary Care Provider Call non-emergency contact if: you have any medication questions and your symptoms worsen Follow-up/Referrals: Elva Freed DO [Primary Care Provider] - Diet: Carb Count or DM1 Addtl Attending Provider Instructions: You were admitted to the [facility] due to transient altered mental status associated with an unwittnessed fall. With respect to your presenting condition, this is most likely consequential of severely uncontrolled blood pressures which resulted in hypertensive encephalopathy. For completeness, an EEG was obtained which was without evidence of epileptic activity. Additional imaging was unremarkable for an intracranial process. It is unclear if this preceeded the patient's fall, or if their fall was mechanical in nature related to their previous musculoskeletal weakness from remote CVA which then led to severe hypertension. We recommend close adherence with your antihypertensive regimen and follow up with your PCP. Your serum sodium fluctuated throughout your hospitalization, however when corrected for your serum glucose measure remained in the range 128-134, which is your baseline measure based on chart review. It is noted on the day of discharge that your white blood cell count is elevated, this is without any significant change in your clinical condition and is most likely related to normal variation in WBC measures. Thank you for choosing [facility] as your medical provider. Stand-Alone Forms: My [facility] Skilled Items Patient informed of condition?: Yes DNR: No Discharge Level of Care: Other Communicable Disease: No Discharge Prognosis: Improving Lines: None Urinary Catheter: No Medications and DC Order Prescriptions: Continued mirabegron [Myrbetriq] 50 mg tablet extended release 24 hr 50 mg PO DAILY Qty: 90 3RF (DME) Dexcom G7 Sensor Device See Rx Instructions .Route Qty: 3 11RF Rx Instructions: change sensor every 10 days atorvastatin 80 mg tablet 80 mg PO DAILY 90 Days Qty: 90 3RF gabapentin 800 mg tablet 800 mg PO TID Qty: 180 3RF (DME) pen needle, diabetic [1st Tier Unifine Pentips Plus] 32 gauge x 5/32" needle See Rx Instructions .Route Qty: 500 4RF Rx Instructions: four times a day insulin glargine [Lantus Solostar U-100 Insulin] 100 unit/mL (3 mL) insulin pen 20 unit subcut QPM Gvoke HypoPen 2-Pack 1 mg/0.2 mL auto-injector 1 mg subcut ONCE PRN (Reason: severe hypoglycemia) Qty: 0.4 1RF Patient Comments: 08/29- Not on faxed list unable to verify amitriptyline 25 mg tablet 25 mg PO HS Qty: 90 3RF oxycodone 5 mg tablet 5 - 10 mg PO Q12 PRN (Reason: Pain) atenolol 25 mg tablet 12.5 mg PO DAILY furosemide [Lasix] 20 mg tablet 0 mg PO DAILY Patient Comments: 08/29- Not on faxed list unable to verify docusate sodium 100 mg tablet 200 - 400 mg PO DAILY insulin lispro [Humalog KwikPen Insulin] 100 unit/mL insulin pen 1 sliding scale dose SUBCUT UD MDD TDD 30 units Rx Instructions: subcutaneously; IF BSG 80-125, Inject 8 UNITS W/ MEALS (9 units if having dessert); HOLD IF <80. AND ADD 1 UNIT FOR EVERY 25 RISE IN SUGAR IF >125 for SS. sodium chloride 1,000 mg tablet,soluble 0 mg PO BID Patient Comments: 08/29- Not on faxed list unable to verify benazepril 10 mg tablet 10 mg PO DAILY Discharge Orders: Discharge Order (Routine); Ordered 09/04/25 Ordered By: Servando Sylvester/Other Patient Handouts: Managing Type 2 Diabetes Admission Data Admit Date/Time: 08/30/25 16:27 Attending Provider: Servando Louie Admit Provider: Servando Louie Primary Care Provider: Elva Freed Other Providers: Servando Louie; [facility] Hospital Stay Data Consultations 08/30/25 16:20 ED Decision to Admit Stat Diagnostic Imagining Performed 08/30/25 13:06 CT cervical spine wo con Stat CT head/brain wo con Stat 08/30/25 14:16 CT abd pelvis IV con only Stat CT chest diagnostic w con Stat Discharge Instructions Given to Patient (Per Discharging Provider) You were admitted to the [facility] due to transient altered mental status associated with an unwittnessed fall. With respect to your presenting condition, this is most likely consequential of severely uncontrolled blood pressures which resulted in hypertensive encephalopathy. For completeness, an EEG was obtained which was without evidence of epileptic activity. Additional imaging was unremarkable for an intracranial process. It is unclear if this preceeded the patient's fall, or if their fall was mechanical in nature related to their previous musculoskeletal weakness from remote CVA which then led to severe hypertension. We recommend close adherence with your antihypertensive regimen and follow up with your PCP. Your serum sodium fluctuated throughout your hospitalization, however when corrected for your serum glucose measure remained in the range 128-134, which is your baseline measure based on chart review. It is noted on the day of discharge that your white blood cell count is elevated, this is without any significant change in your clinical condition and is most likely related to normal variation in WBC measures. Thank you for choosing [facility] as your medical provider. Total Time Total Time Spent Total Time Spent (In Minutes): I personally spent 40 minutes in the coordination of today's discharge including bedside counselling, physical exam, and medication reconciliation Coding Level of Care Code 00392 INP/OBS DISCH >30 MIN Diagnoses Hypertensive encephalopathy I67.4 Type 1 diabetes mellitus with diabetic polyneuropathy E10.42 Diabetes mellitus complication status: with neurologic complications Diabetes mellitus complication detail: with polyneuropathy History of hemorrhagic cerebrovascular accident (CVA) with residual deficit I69.30 Hematoma of right iliopsoas muscle, initial encounter S70.11XA Encounter type: initial encounter Laterality: right
[2025-09-04 08:45] VITALS: BP 145/97; PULSE 74; RESP 18; TEMP 98.4
[2025-09-04] MEDS: LANTUS PER UNIT CHARGE SC ONE (09:36)
== END 2025-09-04 12:17 | DRG 71 ==
LOC: ED 12:19 → SUATTDRO 16:27 → 3N 18:27 → SUATTDRO 19:11 → 3N 23:00